=== PATIENT | female | born 1945 | race Caucasian/White ===

== ENCOUNTER → 2016-10-30 | Outpatient (CLI) | payer OTHER ==
[~2016-10-30] MED LIST: ASPCH81X PO; CALC-51 PO; MULT-506 PO; VITAMIN D3 PO
[2016-10-30 12:23] LABS: BASO % 0.5 %; BASO ABS # 0.02 K/uL (0-0.2); COMPLETE YES; EOS % 2.6 %; HEMATOCRIT 39.3 % (37-47); IG% 0.9 %; LYMPH % 11.8 %; MEAN CELL VOLUME 91.8 fL (80-100); MEAN CORPUSCULAR HEMOGLOBIN 29.4 pg (25-34); MEAN CORPUSCULAR HGB CONC 32.1 g/dl (32-36); MEAN PLATELET VOLUME 10.9 fL (7.4-10.4); MONO % 11.1 %; NEUT % 73.1 %; PLATELET COUNT 231 K/uL (130-400); RED BLOOD COUNT 4.28 M/uL (4.2-5.4); WHITE BLOOD COUNT 4.24 K/uL (4.8-10.8)
[2016-10-30 12:38] LABS: ALT/SGPT 22 U/L (12-78); BLOOD UREA NITROGEN 14 mg/dl (7-18); BUN/CREATININE RATIO 24.4 (10-20); CARBON DIOXIDE 26 mmol/L (21-32); CHLORIDE 107 mmol/L (98-107); CHOLESTEROL 165 mg/dl (0-200); CREATININE 0.59 mg/dl (0.60-1.20); GLUCOSE 116 mg/dl (70-99); MAGNESIUM 2.1 mg/dl (1.8-2.4); POTASSIUM 3.8 mmol/L (3.5-5.1); SODIUM 143 mmol/L (136-145); TRIGLYCERIDES 203 mg/dl (0-150); VERY LOW DENSITY LIPOPROT CALC 41 mg/dl
[2016-10-30 12:44] LABS: CALCIUM 8.3 mg/dl (8.5-10.1)
[2016-10-30 12:47] LABS: ALB/GLOB RATIO 0.8 (0.9-2); ALKALINE PHOSPHATASE 93 U/L (45-117); AST/SGOT 17 U/L (15-37); CHOLESTEROL/HDL RATIO 3.1; HDL CHOLESTEROL 54 mg/dl; LDL CHOLESTEROL CALCULATED 70 mg/dl
[2016-10-30 13:06] LABS: ESTIMATED AVERAGE GLUCOSE 134 mg/dl; HA1C FLAG Normal (Normal)
== END | disposition home or self-care (01) ==
LOC: C.LABBFT 08:41
PROVIDERS: ATTEND Family Medicine
DX: E11.59 Type 2 diabetes mellitus with other circulatory complications (principal); E78.5 Hyperlipidemia, unspecified; R73.03 Prediabetes; N20.0 Calculus of kidney; E04.2 Nontoxic multinodular goiter; E55.9 Vitamin D deficiency, unspecified; R00.2 Palpitations

== ENCOUNTER → 2016-11-12 | Outpatient (CLI) | payer OTHER ==
--- NOTE | 2016-11-13 13:28 | MAMMOGRAPHY REPORT ---
BILATERAL DIGITAL SCREENING MAMMOGRAM TOMOSYNTHESIS WITH CAD: 11/12/2016 CLINICAL HISTORY: Asymptomatic. Personal history of breast cancer. TECHNIQUE: Breast tomosynthesis in addition to standard 2D mammography was performed. Current study was also evaluated with a Computer Aided Detection (CAD) system. COMPARISON: Comparison is made to exams dated: 11/02/2015 mammogram, 10/27/2013 mammogram, 10/14/2012 m ammogram, 10/09/2011 mammogram, 10/03/2010 mammogram, and 03/28/2009 mammogram - [facility] enter. BREAST COMPOSITION: There are scattered areas of fibroglandular density in both breasts. FINDINGS: There is evidence of prior surgery in the right breast. There is scar retraction at the cassidy rgical site in the central right breast. There are benign-appearing calcifications throughout the ri ght breast and stable surgical clips. Stable left subareolar asymmetry. No new suspicious mass, arc hitectural distortion or cluster of microcalcifications is seen. IMPRESSION: ACR BI-RADS CATEGORY 1: NEGATIVE There is no mammographic evidence of malignancy. A 1 year screening mammogram is recommended. The pa tient will receive written notification of the results. Approximately 10% of breast cancers are not detected with mammography. A negative mammographic report should not delay biopsy if a clinically suggestive mass is present. Barbara Friend M.D. ay/:11/12/2016 16:13:25 Grain Weigher: Mary Jane LIRA)(Sophia), [facility] letter sent: Normal 1/2 BI-RADS Code: ACR BI-RADS Category 1: Negative
== END | disposition home or self-care (01) ==
LOC: C.MAMM 07:05
PROVIDERS: ATTEND Obstetrics & Gynecology
DX: Z12.31 Encounter for screening mammogram for malignant neoplasm of breast (principal); Z85.3 Personal history of malignant neoplasm of breast

== ENCOUNTER → 2017-05-21 | Outpatient (CLI) | payer OTHER ==
[~2017-05-21] MED LIST changes: +CALC-393 PO; +CHOL1TAB42 PO; +CIPR-255 PO; +CLC100 PO; +CPR500 PO; +DOCU100C31 PO; +METR-163 PO; +MTR500 PO; +PRLSR20 PO; +[UNRECOGNIZED DRUG - REMARK] OP
[2017-05-21 17:37] LABS: BASO % 0.2 %; BASO ABS # 0.01 K/uL (0-0.2); EOS % 1.9 %; HEMATOCRIT 38.8 % (37-47); HEMOGLOBIN 12.6 g/dL (12.0-16.0); IG# 0.03 K/uL (0.00-0.02); LYMPH % 11.2 %; LYMPH ABS # 0.59 K/uL (1.2-3.4); MEAN CELL VOLUME 90.2 fL (80-100); MEAN CORPUSCULAR HEMOGLOBIN 29.3 pg (25-34); MEAN CORPUSCULAR HGB CONC 32.5 g/dl (32-36); MEAN PLATELET VOLUME 10.4 fL (7.4-10.4); MONO % 11.7 %; MONO ABS # 0.62 K/uL (0.11-0.59); NEUT % 74.4 %; NEUT ABS # 3.93 K/uL (1.4-6.5); PLATELET COUNT 301 K/uL (130-400); RED CELL DISTRIBUTION WIDTH CV 14.3 % (11.5-14.5); RED CELL DISTRIBUTION WIDTH SD 47.2 fL (36.4-46.3); WHITE BLOOD COUNT 5.28 K/uL (4.8-10.8)
[2017-05-21 18:22] LABS: ALBUMIN 3.2 gm/dl (3.4-5.0); ALKALINE PHOSPHATASE 103 U/L (45-117); ALT/SGPT 29 U/L (12-78); AST/SGOT 19 U/L (15-37); BLOOD UREA NITROGEN 8 mg/dl (7-18); CALCIUM 9.6 mg/dl (8.5-10.1); CARBON DIOXIDE 33 mmol/L (21-32); CREATININE 0.61 mg/dl (0.60-1.20); GLUCOSE 121 mg/dl (70-99); LIPASE 361 U/L (73-393); POTASSIUM 3.3 mmol/L (3.5-5.1); SODIUM 139 mmol/L (136-145)
== END | disposition home or self-care (01) ==
LOC: C.LAB1850 16:58
PROVIDERS: ATTEND Internal Medicine
DX: R10.11 Right upper quadrant pain (principal); R10.13 Epigastric pain

== ENCOUNTER → 2017-05-24 | Outpatient (CLI) | payer OTHER ==
[~2017-05-24] MED LIST changes: -CALC-393 PO; -CHOL1TAB42 PO; -CIPR-255 PO; -CLC100 PO; -CPR500 PO; -DOCU100C31 PO; -METR-163 PO; -MTR500 PO; -PRLSR20 PO; -[UNRECOGNIZED DRUG - REMARK] OP
--- NOTE | 2017-05-24 09:06 | DIAGNOSTIC IMAGING REPORT ---
ABDOMEN LIMITED (US) CLINICAL HISTORY: 71 years-old Female presenting with R10.11 Abdominal pain, RUQ (right upper quadrant)[id number]. TECHNIQUE: Real-time grayscale and limited color Doppler ultrasound imaging of the abdomen limited to the right upper quadrant was performed. COMPARISON: CT from 12/21/2015. FINDINGS: Pancreas: Largely obscured due to overlying bowel gas. Liver: Moderately hyperechogenic parenchyma with partial obscuration of the right hemidiaphragm, likely indicating moderate steatosis. The liver measures 15.3 cm in maximal sagittal dimension. No sonographic evidence of hepatic mass. Main portal vein patent with normal directional flow. Biliary: No intrahepatic biliary ductal dilatation. Common bile duct measures up to 5 mm in diameter. Gallbladder: Gallstone without evidence of gallbladder distention, wall thickening, or pericholecystic fluid or inflammatory change. Right kidney: Normal in appearance. No hydronephrosis. Ascites: None. IMPRESSION: 1. Cholelithiasis. No biliary ductal dilatation. 2. Hepatic steatosis. Correlate with liver function tests to exclude steatohepatitis as a cause for abdominal pain. Electronically signed by: Cuauhtemoc Verma M.D. 05/24/2017 9:05 AM Dictated Date/Time: 05/24/2017 9:03 AM
== END | disposition home or self-care (01) ==
LOC: C.ULTR 08:03
PROVIDERS: ATTEND Internal Medicine
DX: R10.11 Right upper quadrant pain (principal); K80.20 Calculus of gallbladder without cholecystitis without obstruction

== ENCOUNTER → 2017-05-27 | Day surgery (SDC) | payer OTHER ==
[2017-04-24 15:31] VITALS: Ht 152.4 cm; Wt 68.2 kg
[~2017-05-27] VITALS: Ht 152.4 cm; Wt 68.2 kg
[~2017-05-27] MED LIST changes: +500ML BSS 0.3ML EPI 1:1000PF IRRIG ONE; +ACETAMINOPHEN 325 MG TAB PO PRN; +AMVISC PLUS 0.8ML SYRINGE INT OCU ONE; +ATROPINE SULFATE 0.1 MG/ML 5ML SYR IV PRN; +BRIMONIDINE TART 0.2% OP SOLN PER DROP CHARGE ONE; +BSS FLUSH ONE; +ENDOCOAT 0.85ML SYRINGE INT OCU ONE; +EpHEDrine SULFATE INJ 50 MG/ML AMP IV PRN; +EpINEphrine INJ 1MG/ML AMP 1 MG/ML AMP ONE; +LACTATED RINGER'S 1000ML 500 ML IV SCH; +LIDOCAINE 4% OP SOLN DROP CHARGE ONE; +LIDOCAINE 4% OP SOLN DROP CHARGE OPR SCH; +LIDOCAINE HCL 1% MPF 2 ML VIAL ONE; +MIDAZOLAM HCL 1 MG/ML 2ML VIAL ONE; +MOXIFLOXACIN OPH SOLN PER DROP CHARGE ONE; +ONDANSETRON INJ 2 MG/ML 2 ML VIAL IV PRN; +POVIDONE-IODINE OP SOLN 30 ML BTL ONE; +PROPARACAINE 0.5% OP SOLN PER DROP CHARGE OPR SCH; +TOBRAMYCIN/DEXAMETHASONE OPH OINT PER APPLN CHARGE ONE
[2017-05-27] MEDS: PHENYLEPHRINE HCL 2.5% OP SOLN PER DROP CHARGE OPR SCH ×2 (07:33→07:38)
[2017-05-27] MEDS: TROPICAMIDE 1% OP SOLN PER DROP CHARGE OPR SCH ×2 (07:34→07:39)
[2017-05-27] MEDS: CYCLOPENTOLATE HCL 1% OP SOLN PER DROP CHARGE OPR SCH ×2 (07:35→07:40)
[2017-05-27] MEDS: KETOROLAC 0.5% OP SOLN PER DROP CHARGE OPR SCH ×2 (07:36→07:41)
[2017-05-27] MEDS: MOXIFLOXACIN OPH SOLN PER DROP CHARGE OPR SCH ×2 (07:37→07:48)
--- NOTE | 2017-05-27 07:42 | History & Physical Bridge - SC ---
H&P Re-Evaluation Bridge Note: I have examined the patient, reviewed the History & Physical and in the interval since the performance of the History & Physical I have noted the following changes of clinical significance: No changes noted
--- NOTE | 2017-05-27 08:29 | [facility] Operative Report ---
Operative Report Operative Date May 27, 2017. 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 Gentle IV sedation was given, and the patient's right eye was prepped and draped in usual sterile fashion. A wire lid speculum was placed into the right eye and the operating microscope was swung into position. Using 0.12 forceps and a Supersharp blade a paracentesis port was made 2 o'clock hours away from the 9 o'clock position of the patient's right eye. 1% non-preserved Lidocaine was then injected into the anterior chamber for anesthesia. A 2.0 mm keratotome blade was then used to make a shelved clear corneal incision at the 9 o'clock position of the right eye. Amvisc was injected into the anterior chamber and a cystotome and Utrata forceps were used to perform a curvilinear capsulorrhexis. BSS on a hydrodissection cannula was used to hydrodissect the lens nucleus away from the capsular bag. The phacoemulsification handpiece was then used in a stop and chop fashion to remove the lens nucleus. The irrigation and aspiration handpiece was then used to remove the residual cortical material. Amvisc was injected into the capsular bag and anterior chamber and a [employer]ch [employer] Lomb MX60 14.5 Diopter intraocular lens was injected into the capsular bag. Irrigation and aspiration handpiece was used to remove the residual viscoelastic material. The wounds were hydrated and noted to be watertight. The wire lid speculum was removed from the eye. Vigamox, Brimonidine, and TobraDex ointment were placed on the eye and it was shielded. It should be noted that EndoCoat was used extensively during the case to protect the cornea endothelium. DISPOSITION: The patient tolerated the procedure well and was wheeled to the post anesthesia care unit in stable condition. I attest to the content of the Intraoperative Record and any orders documented therein. Any exceptions are noted below. I attest to the content of the Intraoperative Record and any orders documented therein. Any exceptions are noted below.
--- NOTE | 2017-05-27 08:31 | Discharge Instructions-SurgCtr ---
Discharge Instructions Date of Service May 27, 2017. Visit Reason for Visit: Right Cataract Discharge Discharge Diagnosis / Problem: cataract right eye Discharge Goals Goal(s): Improve function Activity Recommendations Activity Limitations: per Instructions/Follow-up section Lifting Limitations: no more than 5 pounds Anesthesia . Post Anesthesia Instructions: If you have had General Anesthesia or IV Sedation: * Do not drive today. * Resume driving when surgeon permits. * Do not make important decisions or sign legal documents today. * Call surgeon for: 1. Temperature elevations greater than 101 degrees F. 2. Uncontrollable pain. 3. Excessive bleeding. 4. Persistent nausea and vomiting. 5. Medication intolerance (nausea, vomiting or rash). * For nausea and vomiting use only clear liquids such as: tea, soda, bouillon until nausea subsides, then gradually increase diet as tolerated. * If you have any concerns or questions, call your surgeon's office. If physician is unavailable and it is an emergency, call 911 or go to the nearest emergency room. . Instructions / Follow-Up Instructions / Follow-Up ACTIVITY RECOMMENDATIONS: * Light activities * You may walk outside, read, watch television. * Mild irritation and blurred vision are common for the first few days, redness around the white part of the eye is common. MEDICATIONS: Resume previous medications unless instructed otherwise by your surgeon. Eye drops (today and tomorrow): Cipro - one drop in operative eye every 2 hours while awake Prednisolone 1% - one drop in operative eye every 2 hours while awake Ilevro - one drop operative eye 1 times daily SPECIAL CARE INSTRUCTIONS: * If any problems or concerns, please call Dr. Rodriguez's office at . * Keep plastic shield taped over eye to sleep at night. * Keep plastic shield taped over eye except to administer eye drops. * Keep plastic shield on until office visit the following day. FOLLOW UP VISIT: Follow-up with Dr. Rodriguez in the [place] office as scheduled. If not already scheduled, please call the office at . Diet Recommendations Home Diet: resume previous diet Procedures Procedures Performed: Right Cataract Phacoemulsification With Intraocular Lens Implant Pending Studies Studies pending at discharge: no Medical Emergencies . Who to Call and When: Medical Emergencies: If at any time you feel your situation is an emergency, please call 911 immediately. . Non-Emergent Contact Non-Emergency issues call your: Instructional Technologist . . "Provider Documentation" section prepared by Brandon Rodriguez. .
[2017-05-27 08:32] VITALS: TEMP 36.6
[2017-05-27 08:55] VITALS: BP 147/77; PULSE 75; O2SAT 99
--- NOTE | 2017-05-27 09:12 | Anesthesia Progress Nt - [facility] ---
Anesthesia Post Op Note Date & Time May 27, 2017 at 09:12 Vital Signs Pain Intensity: 0 Vital Signs Past 12 Hours Date Time Temp Pulse Resp B/P (MAP) Pulse Ox O2 Delivery O2 Flow Rate FiO2 05/27/17 08:55 75 16 147/77 (100) 99 Room Air 05/27/17 08:32 36.6 50 18 130/82 (98) 93 Room Air 05/27/17 07:23 36.3 52 18 117/78 (91) 97 Room Air Notes Mental Status: alert / awake / arousable, participated in evaluation Pt Amnestic to Procedure: Yes Nausea / Vomiting: adequately controlled Pain: adequately controlled Airway Patency, RR, SpO2: stable & adequate BP & HR: stable & adequate Hydration State: stable & adequate Anesthetic Complications: no major complications apparent
== END | disposition home or self-care (01) ==
LOC: X.SURG 06:56
PROVIDERS: ATTEND Ophthalmology
DX: H25.11 Age-related nuclear cataract, right eye (principal); M19.90 Unspecified osteoarthritis, unspecified site; Z85.3 Personal history of malignant neoplasm of breast; Z79.82 Long term (current) use of aspirin; Z79.899 Other long term (current) drug therapy

== ENCOUNTER 2017-05-30 21:04 | Inpatient (IN) | payer OTHER ==
[~2017-05-30] VITALS: Ht 152.4 cm; Wt 70.0 kg
[~2017-05-30 21:04] MED LIST changes: -500ML BSS 0.3ML EPI 1:1000PF IRRIG ONE; -ACETAMINOPHEN 325 MG TAB PO PRN; -AMVISC PLUS 0.8ML SYRINGE INT OCU ONE; -ATROPINE SULFATE 0.1 MG/ML 5ML SYR IV PRN; -BRIMONIDINE TART 0.2% OP SOLN PER DROP CHARGE ONE; -BSS FLUSH ONE; -ENDOCOAT 0.85ML SYRINGE INT OCU ONE; -EpHEDrine SULFATE INJ 50 MG/ML AMP IV PRN; -EpINEphrine INJ 1MG/ML AMP 1 MG/ML AMP ONE; -LACTATED RINGER'S 1000ML 500 ML IV SCH; -LIDOCAINE 4% OP SOLN DROP CHARGE ONE; -LIDOCAINE 4% OP SOLN DROP CHARGE OPR SCH; -LIDOCAINE HCL 1% MPF 2 ML VIAL ONE; -MIDAZOLAM HCL 1 MG/ML 2ML VIAL ONE; -MOXIFLOXACIN OPH SOLN PER DROP CHARGE ONE; -ONDANSETRON INJ 2 MG/ML 2 ML VIAL IV PRN; -POVIDONE-IODINE OP SOLN 30 ML BTL ONE; -PROPARACAINE 0.5% OP SOLN PER DROP CHARGE OPR SCH; -TOBRAMYCIN/DEXAMETHASONE OPH OINT PER APPLN CHARGE ONE
[2017-05-30] MEDS ORDERED: PRLSR20 PO (21:50)
[2017-05-30] MEDS ORDERED: CALC-393 PO (21:50)
[2017-05-30] MEDS ORDERED: CHOL1TAB42 PO (21:50)
[2017-05-30] MEDS ORDERED: [UNRECOGNIZED DRUG - REMARK] OP (21:51)
[2017-05-30 21:55] LABS: BASO % 0.1 %; BASO ABS # 0.02 K/uL (0-0.2); EOS % 0.4 %; EOS ABS # 0.09 K/uL (0-0.5); HEMATOCRIT 46.8 % (37-47); HEMOGLOBIN 15.8 g/dL (12.0-16.0); LYMPH % 4.5 %; LYMPH ABS # 0.91 K/uL (1.2-3.4); MEAN CELL VOLUME 89.8 fL (80-100); MEAN CORPUSCULAR HEMOGLOBIN 30.3 pg (25-34); MEAN CORPUSCULAR HGB CONC 33.8 g/dl (32-36); MEAN PLATELET VOLUME 10.6 fL (7.4-10.4); MONO % 6.2 %; MONO ABS # 1.27 K/uL (0.11-0.59); NEUT % 88.3 %; NEUT ABS # 17.98 K/uL (1.4-6.5); PLATELET COUNT 306 K/uL (130-400); RED CELL DISTRIBUTION WIDTH SD 45.9 fL (36.4-46.3); WHITE BLOOD COUNT 20.37 K/uL (4.8-10.8)
[2017-05-30] MEDS ORDERED: ONDANSETRON INJ 2 MG/ML 2 ML VIAL IV STA (21:55)
[2017-05-30] MEDS ORDERED: SODIUM CHLORIDE 0.9% 1000ML 1,000 ML IV STA ×2 (21:55→23:48)
--- NOTE | 2017-05-30 22:05 | EMERGENCY ROOM VISIT NOTE ---
History Report prepared by Josy: Cirilo Pompa Under the Supervision of: Dr. Anam Mayorga M.D. 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 She notes that she has been having abdominal pain for two weeks and states the pain resolved itself and then returned with more intensity. She notes constipation, abdominal pain, nausea, and vomiting. The patient notes gallstones, though she has not had pain from them in the past. She has a history of IBS. She recently had cataract surgery four days ago. She denies any fevers, chills, diarrhea, and back pain. She notes that she ate oranges for breakfast and then ham, potatoes, and string beans for dinner. She denies taking any blood thinners. 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 Review of Systems See HPI for pertinent positives and negatives. A total of ten systems were reviewed and were otherwise negative. Past Medical & Surgical Medical Problems: (1) IBS (irritable bowel syndrome) Family History Asthma Diabetes mellitus Kidney stones Social History Smoking Status: Never Smoker Drug Use: none Marital Status: Housing Status: lives with family Occupation Status: retired Current/Historical Medications Scheduled Aspirin (Aspirin Chewable), 81 MG PO QAM Calcium Carbonate (Calcium), 600 MG PO BID Cholecalciferol (Vitamin D), 5,000 UNITS PO DAILY Multivitamin (Multivitamin), 1 TAB PO DAILY AFTERNOON Omeprazole (Prilosec), 20 MG PO DAILY [Post Cataract Gtts], OP UD Allergies Coded Allergies: Penicillins (Verified Allergy, Unknown, SKIN IRRITATION>"HARD A ROCK" 47 YEARS AGO, 05/27/17) Physical Exam Vital Signs Date Time Temp Pulse Resp B/P (MAP) Pulse Ox O2 Delivery O2 Flow Rate FiO2 05/30/17 23:53 93 16 131/93 92 Room Air 05/30/17 23:03 100 16 124/70 94 Room Air 05/30/17 22:11 86 05/30/17 21:23 36.3 93 18 114/83 93 Room Air Physical Exam GENERAL: Awake, alert, uncomfortable-appearing, in no distress HENT: Normocephalic, atraumatic. Oropharynx unremarkable. EYES: Normal conjunctiva. Sclera non-icteric. NECK: Supple. No nuchal rigidity. FROM. No JVD. RESPIRATORY: Clear to auscultation. CARDIAC: Regular rate, normal rhythm. Extremities warm and well perfused. Pulses equal. ABDOMEN: Soft, non-distended. Mild epigastric discomfort and tenderness. No peritoneal signs. No rebound or guarding. No masses. RECTAL: Deferred. MUSCULOSKELETAL: Chest examination reveals no tenderness. The back is symmetrical on inspection without obvious abnormality. There is no CVA tenderness to palpation. No joint edema. LOWER EXTREMITIES: Calves are equal size bilaterally and non-tender. No edema. No discoloration. NEURO: Normal sensorium. No sensory or motor deficits noted. SKIN: No rash or jaundice noted. Medical Decision & Procedures ER Provider Diagnostic Interpretation: Radiology results as stated below per my review and radiologist interpretation: CHEST ONE VIEW PORTABLE CLINICAL HISTORY: epigastric pain pain COMPARISON STUDY: No previous studies for comparison. FINDINGS: The bones soft tissues and hemidiaphragms are normal. The cardiomediastinal silhouette is normal. The lungs are clear. The pulmonary vasculature is normal. IMPRESSION: Negative chest. The above report was generated using voice recognition software. It may contain grammatical, syntax or spelling errors. Electronically signed by: Artem Lott M.D. 05/30/2017 10:42 PM Dictated Date/Time: 05/30/2017 10:42 PM ABD/PELVIS IV CONTRAST ONLY CT DOSE: 412.60 mGy.cm HISTORY: Pain epigastric pain, n/v TECHNIQUE: Multiaxial CT images of the abdomen and pelvis were performed following the use of intravenous contrast. A dose lowering technique was utilized adhering to the principles of ALARA. COMPARISON STUDY: 12/21/2015 FINDINGS: Lung bases are clear. Liver is uniform throughout. Gallstone the region of the gallbladder neck. No significant gallbladder distention. Spleen is uniform. Kidneys enhance appropriately. No evidence for hydronephrosis. Findings suggesting ileus versus partial distal small bowel obstruction. Proximal left upper quadrant small bowel loops suggests a slight degree of hyperemia of the bowel wall. This is seen more significantly in the right lower quadrant region where moderate wall edema appears to be present. Appearance is most consistent without inflammatory bowel process and/or severe enteritis. A small amount of free fluid is identified in the right lower quadrant as well as in within the pelvic cul-de-sac region. There is been a bladder suspension procedure which has been described previously. The colonic pattern appears to be nonobstructive. There is trace amount of perihepatic ascites. IMPRESSION: 1. Moderately edematous and hyperemic loops of small bowel in the right central pelvic and right lower quadrant region. 2. This is accompanied by a moderate degree of surrounding free fluid and/or ascites with extension to the pelvic cul-de-sac and to a lesser extent to the perihepatic region. 3. Appearance suggests a nonspecific enteritis and/or small bowel inflammatory process with mild secondary inflammatory changes of the appendix. No evidence for primary appendicitis. 4. No evidence for drainable abscess or collection at this time. 5. Small bowel pattern currently suggests partial distal small bowel obstructive change 6. Bladder suspension procedure which has been present previously. The above report was generated using voice recognition software. It may contain grammatical, syntax or spelling errors. Electronically signed by: Artem Lott M.D. 05/30/2017 10:59 PM Dictated Date/Time: 05/30/2017 10:51 PM Laboratory Results Test 05/30/17 21:46 05/30/17 21:49 Immature Granulocyte % (Auto) 0.5 % White Blood Count 20.37 K/uL (4.8-10.8) Red Blood Count 5.21 M/uL (4.2-5.4) Hemoglobin 15.8 g/dL (12.0-16.0) Hematocrit 46.8 % (37-47) Mean Corpuscular Volume 89.8 fL (80-100) Mean Corpuscular Hemoglobin 30.3 pg (25-34) Mean Corpuscular Hemoglobin Concent 33.8 g/dl (32-36) Platelet Count 306 K/uL (130-400) Mean Platelet Volume 10.6 fL (7.4-10.4) Neutrophils (%) (Auto) 88.3 % Lymphocytes (%) (Auto) 4.5 % Monocytes (%) (Auto) 6.2 % Eosinophils (%) (Auto) 0.4 % Basophils (%) (Auto) 0.1 % Neutrophils # (Auto) 17.98 K/uL (1.4-6.5) Lymphocytes # (Auto) 0.91 K/uL (1.2-3.4) Monocytes # (Auto) 1.27 K/uL (0.11-0.59) Eosinophils # (Auto) 0.09 K/uL (0-0.5) Basophils # (Auto) 0.02 K/uL (0-0.2) Immature Granulocyte # (Auto) 0.10 K/uL (0.00-0.02) Urine Color YELLOW Urine Appearance CLOUDY (CLEAR) Urine pH 5.0 (4.5-7.5) Urine Specific Nadeau >= 1.030 (1.000-1.030) Urine Protein 2+ (NEG) Urine Glucose (UA) NEG (NEG) Urine Ketones TRACE (NEG) Urine Occult Blood TRACE (NEG) Urine Nitrite NEG (NEG) Urine Bilirubin NEG (NEG) Urine Urobilinogen NEG (NEG) Urine Leukocyte Esterase SMALL (NEG) Urine RBC 0-4 /hpf (0-4) Urine WBC 10-30 /hpf (0-5) Urine Epithelial Cells 0-5 /lpf (0-5) Urine Calcium Oxalate Crystals PRESENT (NONE PRSENT) Urine Bacteria 1+ (NEG) Urine Hyaline Casts 1-5 /lpf (0-5) Urine Mucus PRESENT (NONE PRSENT) Total Bilirubin 0.6 mg/dl (0.2-1) Aspartate Amino Transf (AST/SGOT) 19 U/L (15-37) Alanine Aminotransferase (ALT/SGPT) 26 U/L (12-78) Alkaline Phosphatase 101 U/L (45-117) Total Protein 7.4 gm/dl (6.4-8.2) Albumin 3.5 gm/dl (3.4-5.0) Globulin 3.9 gm/dl (2.5-4.0) Albumin/Globulin Ratio 0.9 (0.9-2) Lipase 400 U/L (73-393) Troponin I < 0.015 ng/ml (0-0.045) Laboratory results reviewed by me Medications Administered Medications (Trade) Dose Ordered Sig/Erick Route Start Time Stop Time Status Last Admin Dose Admin Sodium Chloride 1,000 ml @ 999 mls/hr Q1H1M STAT IV 05/30/17 21:55 05/30/17 22:55 DC 05/30/17 22:05 999 MLS/HR Ondansetron HCl (Zofran Inj) 4 mg NOW STAT IV 05/30/17 21:55 05/30/17 21:59 DC 05/30/17 22:04 4 MG Cefepime HCl 2000 mg/Dextrose 112.5 ml @ 200 mls/hr NOW STAT IV 05/30/17 23:42 05/31/17 00:15 DC 05/30/17 23:50 200 MLS/HR Metronidazole (Flagyl / Nss) 500 mg NOW STAT IV 05/30/17 23:42 05/30/17 23:44 DC 05/30/17 23:50 500 MG Sodium Chloride 1,000 ml @ 999 mls/hr Q1H1M STAT IV 05/30/17 23:48 05/31/17 00:48 DC 05/30/17 23:50 999 MLS/HR ECG Indication: vomiting Rate (beats per minute): 87 Rhythm: normal sinus Findings: LAFB, RBBB (incomplete), no acute ischemic change ED Course 2153: The patient was evaluated in room C1B. A complete history and physical exam was performed. 6: I spoke with Dr. Huynh, hospitalist. We discussed the patients case. The patient will be evaluated by the [facility] for further management. Medical Decision I reviewed the patient's past medical history, medications, and the nursing notes as described above. The patient's history was concerning for abdominal pain. Differential diagnosis: Etiologies such as appendicitis, diverticulitis, PUD, biliary pathology, UTI, pancreatitis, obstruction, mesenteric ischemia, aortic pathology, infections, inflammatory bowel disease, renal colic, as well as others were entertained. The patient is a 71-year-old woman who presents emergency Department with epigastric abdominal pain nausea vomiting that began abruptly this afternoon in the setting of similar symptoms ongoing intermittently for the past couple of weeks per hpi. While the patient is uncomfortable but no acute distress, afebrile with stable vital signs. Notable for leukocytosis to 20 as well as lactate elevated at 2.9. CT demonstrating enteritis and likely partial small bowel obstruction reassessed and is feeling improved after IV fluids and Zofran. Given patient's clinical improvement, no indication for NG tube at this time or emergent surgery consultation. We'll treat empirically with cefepime and Flagyl given the patient's leukocytosis and elevated lactate. Case discussed with Dr. Huynh, [facility] hospitalist, who will admit the patient for further management. Medication Reconcilliation Current Medication List: was personally reviewed by me Blood Pressure Screening Patient's blood pressure: Normal blood pressure Consults Time Called: [phone] Consulting Physician: loretta Pizanoist Returned Call: [phone] I spoke with merritt Pizano. We discussed the patients case. The patient will be evaluated by the [facility] for further management. Impression Primary Impression: Enteritis Additional Impressions: Partial small bowel obstruction Sepsis Critical Care I have personally spent greater than 35 minutes of critical care time in the direct management of this patient. This includes bedside care, interpretation of diagnostic studies, and testing, discussion with consultants, patient, and family members, and other required patient management activities. This 35 minutes is in excess of all separately billable procedures. Scribe Attestation The scribe's documentation has been prepared under my direction and personally reviewed by me in its entirety. I confirm that the note above accurately reflects all work, treatment, procedures, and medical decision making performed by me. Departure Information Dispostion Being Evaluated By Hospitalist Referrals Nicky Roman M.D. (PCP) Patient Instructions My [facility] Problem Qualifiers
[2017-05-30 22:12] LABS: ALBUMIN 3.5 gm/dl (3.4-5.0); CALCIUM 10.1 mg/dl (8.5-10.1); CREATININE 0.71 mg/dl (0.60-1.20); POTASSIUM 3.8 mmol/L (3.5-5.1)
[2017-05-30 22:15] LABS: TOTAL PROTEIN 7.4 gm/dl (6.4-8.2)
[2017-05-30] MEDS ORDERED: OPTIRAY 320 IV PRN (22:15)
--- NOTE | 2017-05-30 22:43 | DIAGNOSTIC IMAGING REPORT ---
CHEST ONE VIEW PORTABLE CLINICAL HISTORY: epigastric pain pain COMPARISON STUDY: No previous studies for comparison. FINDINGS: The bones soft tissues and hemidiaphragms are normal. The cardiomediastinal silhouette is normal. The lungs are clear. The pulmonary vasculature is normal. IMPRESSION: Negative chest. The above report was generated using voice recognition software. It may contain grammatical, syntax or spelling errors. Electronically signed by: Artem Lott M.D. 05/30/2017 10:42 PM Dictated Date/Time: 05/30/2017 10:42 PM
--- NOTE | 2017-05-30 23:00 | DIAGNOSTIC IMAGING REPORT ---
ABD/PELVIS IV CONTRAST ONLY CT DOSE: 412.60 mGy.cm HISTORY: Pain epigastric pain, n/v TECHNIQUE: Multiaxial CT images of the abdomen and pelvis were performed following the use of intravenous contrast. A dose lowering technique was utilized adhering to the principles of ALARA. COMPARISON STUDY: 12/21/2015 FINDINGS: Lung bases are clear. Liver is uniform throughout. Gallstone the region of the gallbladder neck. No significant gallbladder distention. Spleen is uniform. Kidneys enhance appropriately. No evidence for hydronephrosis. Findings suggesting ileus versus partial distal small bowel obstruction. Proximal left upper quadrant small bowel loops suggests a slight degree of hyperemia of the bowel wall. This is seen more significantly in the right lower quadrant region where moderate wall edema appears to be present. Appearance is most consistent without inflammatory bowel process and/or severe enteritis. A small amount of free fluid is identified in the right lower quadrant as well as in within the pelvic cul-de-sac region. There is been a bladder suspension procedure which has been described previously. The colonic pattern appears to be nonobstructive. There is trace amount of perihepatic ascites. IMPRESSION: 1. Moderately edematous and hyperemic loops of small bowel in the right central pelvic and right lower quadrant region. 2. This is accompanied by a moderate degree of surrounding free fluid and/or ascites with extension to the pelvic cul-de-sac and to a lesser extent to the perihepatic region. 3. Appearance suggests a nonspecific enteritis and/or small bowel inflammatory process with mild secondary inflammatory changes of the appendix. No evidence for primary appendicitis. 4. No evidence for drainable abscess or collection at this time. 5. Small bowel pattern currently suggests partial distal small bowel obstructive change 6. Bladder suspension procedure which has been present previously. The above report was generated using voice recognition software. It may contain grammatical, syntax or spelling errors. Electronically signed by: Artem Lott M.D. 05/30/2017 10:59 PM Dictated Date/Time: 05/30/2017 10:51 PM
[2017-05-30] MEDS ORDERED: METRONIDAZOLE 500MG / 100ML NSS IV STA (23:42)
[2017-05-30] MEDS ORDERED: CEFEPIME IV 2,000 MG in DEXTROSE 5% 100ML 100 ML IV STA (23:42)
[2017-05-31] MEDS ORDERED: ACETAMINOPHEN 325 MG TAB PO PRN (01:45)
[2017-05-31] MEDS ORDERED: ONDANSETRON 8MG OD TAB PO PRN (01:45)
[2017-05-31 02:06] VITALS: BP 144/83; PULSE 95; TEMP 36.5; O2SAT 92; Ht 152.4 cm; Wt 70.0 kg
[2017-05-31] MEDS: NSS + 20MEQ KCL 1000ML 1,000 ML IV SCH ×2 (02:37→14:37)
[2017-05-31] MEDS ORDERED: NURSING VERBAL MED ORDER ONE ×2 (02:45→23:00)
[2017-05-31] MEDS ORDERED: ONDANSETRON INJ 2 MG/ML 2 ML VIAL ONE (02:48)
[2017-05-31] MEDS ORDERED: ACETAMINOPHEN IV 650 MG / 65ML IV PRN ×2 (03:00)
[2017-05-31] MEDS: CIPROFLOXACIN / D5W 400 MG in PREMIXED IN D5W 200 ML IV SCH ×2 (03:08→14:37)
[2017-05-31] MEDS ORDERED: ONDANSETRON INJ 2 MG/ML 2 ML VIAL IV PRN (03:15)
--- NOTE | 2017-05-31 04:33 | History and Physical ---
History & Physical Date & Time of Service: May 31, 2017 at 04:25 Chief Complaint: Partial Small Bowel Obstuction Primary Care Physician: Nicky Roman M.D. History of Present Illness Source: patient, hospital records The patient is a 71-year-old female who presents to the emergency room with intermittent vomiting over the past 3 hours [employer]. She reports abdominal pain over the past 2 weeks, which are temporarily resolves, and then returned more intensely today. She's had constipation, abdominal pain, nausea and vomiting all worsening today. She does have history of IBS. She had cataract surgery in the right eye 4 days ago. Her diet today consisted of one just for breakfast , and then ham, potatoes and string beans for dinner. She denies having any similar symptoms in the past. She denies any blood in urine or stool. Family History Asthma Diabetes mellitus Kidney stones Social History Smoking Status: Never Smoker Smokeless Tobacco Use: No Alcohol Use: none Drug Use: none Marital Status: Housing status: lives with family Occupational Status: retired Immunizations History of Influenza Vaccine: No History of Tetanus Vaccine?: HAD IT BUT DOESN'T REMEMER WHEN. History of Pneumococcal: No History of Hepatitis B Vaccine: No Multi-Drug Resistant Organisms History of MDRO: No Allergies Coded Allergies: Penicillins (Verified Allergy, Unknown, SKIN IRRITATION>"HARD A ROCK" 47 YEARS AGO, 05/27/17) Home Medications Scheduled Aspirin (Aspirin Chewable), 81 MG PO QAM Calcium Carbonate (Calcium), 600 MG PO BID Cholecalciferol (Vitamin D), 5,000 UNITS PO DAILY Multivitamin (Multivitamin), 1 TAB PO DAILY AFTERNOON Omeprazole (Prilosec), 20 MG PO DAILY [Post Cataract Gtts], OP UD Review of Systems The patient denies chest pain, palpitations, shortness of breath, dyspnea on exertion, cough, lower extremity swelling, sore throat, fevers, chills, sweats, weight change, blood in urine or stool, dysuria, urinary frequency or urgency, lightheadedness, dizziness, headache, memory loss, loss of consciousness, rash, abnormal bruising or bleeding, imbalance, focal weakness, numbness or tingling in arms or legs, generalized arthralgias or myalgias, back or neck pain, or night sweats. The review of systems is otherwise negative other than for that already noted above, and at least 10 systems have been reviewed. Physical Exam Vital Signs Date Time Temp Pulse Resp B/P (MAP) Pulse Ox O2 Delivery O2 Flow Rate FiO2 05/31/17 02:06 36.5 95 18 144/83 92 Room Air 05/31/17 02:05 Room Air 05/31/17 01:51 89 16 124/86 91 05/30/17 23:53 93 16 131/93 92 Room Air 05/30/17 23:03 100 16 124/70 94 Room Air 05/30/17 22:11 86 05/30/17 21:23 36.3 93 18 114/83 93 Room Air The patient is awake, alert and oriented 3, well developed and well nourished, normocephalic and atraumatic, lying in bed and in no acute distress. HEENT--PERRL, EOMI, mucous membranes and oropharynx dry. Neck--supple. No JVD. No bruits. Thyroid normal, trachea midline, no adenopathy. Heart--normal S1 and S2. No murmurs, rubs or gallops. Lungs--clear bilaterally, no respiratory distress, no accessory muscle use. Abdomen--decreased bowel sounds, mildly firm, mildly tender. Nondistended, no hernias or masses, no organomegaly. Extremities--no cyanosis or clubbing. No edema. There are good distal pulses b/ l. Dermatologic--normal skin turgor, normal color, no abnormal lymph nodes, no rash. Neurologic--cranial nerves II through XII grossly intact. Rheumatologic--normal range of motion. Psychiatric--normal affect. Diagnostics Laboratory Results Results Past 24 Hours Test 05/30/17 21:46 05/30/17 21:49 05/30/17 22:21 Range/Units White Blood Count 20.37 4.8-10.8 K/uL Red Blood Count 5.21 4.2-5.4 M/uL Hemoglobin 15.8 12.0-16.0 g/dL Hematocrit 46.8 37-47 % Mean Corpuscular Volume 89.8 80-100 fL Mean Corpuscular Hemoglobin 30.3 25-34 pg Mean Corpuscular Hemoglobin Concent 33.8 32-36 g/dl Platelet Count 306 130-400 K/uL Mean Platelet Volume 10.6 7.4-10.4 fL Neutrophils (%) (Auto) 88.3 % Lymphocytes (%) (Auto) 4.5 % Monocytes (%) (Auto) 6.2 % Eosinophils (%) (Auto) 0.4 % Basophils (%) (Auto) 0.1 % Neutrophils # (Auto) 17.98 1.4-6.5 K/uL Lymphocytes # (Auto) 0.91 1.2-3.4 K/uL Monocytes # (Auto) 1.27 0.11-0.59 K/uL Eosinophils # (Auto) 0.09 0-0.5 K/uL Basophils # (Auto) 0.02 0-0.2 K/uL RDW Standard Deviation 45.9 36.4-46.3 fL RDW Coefficient of Variation 14.0 11.5-14.5 % Immature Granulocyte % (Auto) 0.5 % Immature Granulocyte # (Auto) 0.10 0.00-0.02 K/uL Urine Color YELLOW Urine Appearance CLOUDY CLEAR Urine pH 5.0 4.5-7.5 Urine Specific [place] >= 1.030 1.000-1.030 Urine Protein 2+ NEG Urine Glucose (UA) NEG NEG Urine Ketones TRACE NEG Urine Occult Blood TRACE NEG Urine Nitrite NEG NEG Urine Bilirubin NEG NEG Urine Urobilinogen NEG NEG Urine Leukocyte Esterase SMALL NEG Urine RBC 0-4 0-4 /hpf Urine WBC 10-30 0-5 /hpf Urine Epithelial Cells 0-5 0-5 /lpf Urine Calcium Oxalate Crystals PRESENT NONE PRSENT Urine Bacteria 1+ NEG Urine Hyaline Casts 1-5 0-5 /lpf Urine Mucus PRESENT NONE PRSENT Sodium Level 141 136-145 mmol/L Potassium Level 3.8 3.5-5.1 mmol/L Chloride Level 102 98-107 mmol/L Carbon Dioxide Level 29 21-32 mmol/L Anion Gap 10.0 3-11 mmol/L Blood Urea Nitrogen 12 7-18 mg/dl Creatinine 0.71 0.60-1.20 mg/dl Est Creatinine Clear Calc Drug Dose 64.4 ml/min Estimated GFR () 100.0 Estimated GFR (Non- 86.3 BUN/Creatinine Ratio 17.0 10-20 Random Glucose 182 70-99 mg/dl Calcium Level 10.1 8.5-10.1 mg/dl Total Bilirubin 0.6 0.2-1 mg/dl Aspartate Amino Transf (AST/SGOT) 19 15-37 U/L Alanine Aminotransferase (ALT/SGPT) 26 12-78 U/L Alkaline Phosphatase 101 45-117 U/L Total Protein 7.4 6.4-8.2 gm/dl Albumin 3.5 3.4-5.0 gm/dl Globulin 3.9 2.5-4.0 gm/dl Albumin/Globulin Ratio 0.9 0.9-2 Lipase 400 73-393 U/L Troponin I < 0.015 0-0.045 ng/ml Lactic Acid Level 2.9 0.4-2.0 mmol/L Microbiology Results 05/30/17 Urine Culture, Received Pending Diagnostic Radiology Patient Name: CHRISSIE BRODY Unit Number: [id number] Dictated: 05/30/172241 Transcribed: 05/30/172241 MS Printed Date/Time: [~ rep prt dt]/[~ rep prt tm] [~ rep ct labl] - [~ rep ct ivnm] [facility] Radiology [place] [address] Dictated: 05/30/172241 Transcribed: 05/30/172241 MS Printed Date/Time: [~ rep prt dt]/[~ rep prt tm] [~ rep ct labl] - [~ rep ct ivnm] CHEST ONE VIEW PORTABLE CLINICAL HISTORY: epigastric pain pain COMPARISON STUDY: No previous studies for comparison. FINDINGS: The bones soft tissues and hemidiaphragms are normal. The cardiomediastinal silhouette is normal. The lungs are clear. The pulmonary vasculature is normal. IMPRESSION: Negative chest. The above report was generated using voice recognition software. It may contain grammatical, syntax or spelling errors. Electronically signed by: Artem Lott M.D. 05/30/2017 10:42 PM Dictated Date/Time: 05/30/2017 10:42 PM The status of this report is Signed. Draft = Not yet reviewed or approved by Radiologist. Signed = Reviewed and approved by Radiologist. <AttendingPhy></AttendingPhy> <FamilyPhy></FamilyPhy> <PrimaryPhy>Nicky Roman M.D.</PrimaryPhy> <UnitNumber>[id number]</UnitNumber> <VisitNumber> [id number]</VisitNumber> <PatientName>CHRISSIE BRODY</PatientName> <DateOfBirth> 1945</DateOfBirth> <Location>[facility]</Location> <ServiceDate>05/30/17</ ServiceDate> <MNE>ESINDI</MNE> <OrderingPhy>Anam Mayorga M.D.</OrderingPhy > <OrderingPhyMNE>f rep ord dr kim</OrderingPhyMNE> <DictatingPhyMNE>f rep dict dr kim</DictatingPhyMNE> <CCListMNE>f rep ct mne</CCListMNE> <AdmittingPhyMNE>f pt admit dr kim</AdmittingPhyMNE> <AttendingPhyMNE>f pt attend dr kim</ AttendingPhyMNE> <ConsultingPhyMNE>f pt consult dr kim</ConsultingPhyMNE> <FamilyPhyMNE>f pt fam dr kim</FamilyPhyMNE> <OtherPhyMNE>f pt other dr kim</OtherPhyMNE> < PrimaryPhyMNE>f pt prim care dr kim</PrimaryPhyMNE> <ReferringPhyMNE>f pt referring dr kim</ReferringPhyMNE> Patient Name: CHRISSIE BRODY Unit Number: [id number] Dictated: 05/30/172250 Transcribed: 05/30/172250 MS Printed Date/Time: [~ rep prt dt]/[~ rep prt tm] [~ rep ct labl] - [~ rep ct ivnm] [facility] Radiology Department [place], [place] [id number] Dictated: 05/30/172250 Transcribed: 05/30/172250 MS Printed Date/Time: [~ rep prt dt]/[~ rep prt tm] [~ rep ct labl] - [~ rep ct ivnm] [~ rep ct add3]] ABD/PELVIS IV CONTRAST ONLY CT DOSE: 412.60 mGy.cm HISTORY: Pain epigastric pain, n/v TECHNIQUE: Multiaxial CT images of the abdomen and pelvis were performed following the use of intravenous contrast. A dose lowering technique was utilized adhering to the principles of ALARA. COMPARISON STUDY: 12/21/2015 FINDINGS: Lung bases are clear. Liver is uniform throughout. Gallstone the region of the gallbladder neck. No significant gallbladder distention. Spleen is uniform. Kidneys enhance appropriately. No evidence for hydronephrosis. Findings suggesting ileus versus partial distal small bowel obstruction. Proximal left upper quadrant small bowel loops suggests a slight degree of hyperemia of the bowel wall. This is seen more significantly in the right lower quadrant region where moderate wall edema appears to be present. Appearance is most consistent without inflammatory bowel process and/or severe enteritis. A small amount of free fluid is identified in the right lower quadrant as well as in within the pelvic cul-de-sac region. There is been a bladder suspension procedure which has been described previously. The colonic pattern appears to be nonobstructive. There is trace amount of perihepatic ascites. IMPRESSION: 1. Moderately edematous and hyperemic loops of small bowel in the right central pelvic and right lower quadrant region. 2. This is accompanied by a moderate degree of surrounding free fluid and/or ascites with extension to the pelvic cul-de-sac and to a lesser extent to the perihepatic region. 3. Appearance suggests a nonspecific enteritis and/or small bowel inflammatory process with mild secondary inflammatory changes of the appendix. No evidence for primary appendicitis. 4. No evidence for drainable abscess or collection at this time. 5. Small bowel pattern currently suggests partial distal small bowel obstructive change 6. Bladder suspension procedure which has been present previously. The above report was generated using voice recognition software. It may contain grammatical, syntax or spelling errors. Electronically signed by: Artem Lott M.D. 05/30/2017 10:59 PM Dictated Date/Time: 05/30/2017 10:51 PM The status of this report is Signed. Draft = Not yet reviewed or approved by Radiologist. Signed = Reviewed and approved by Radiologist. <AttendingPhy></AttendingPhy> <FamilyPhy></FamilyPhy> <PrimaryPhy>Nicky Roman M.D.</PrimaryPhy> <UnitNumber>[id number]</UnitNumber> <VisitNumber> [id number]</VisitNumber> <PatientName>CHRISSIE BRODY</PatientName> <DateOfBirth> 1945</DateOfBirth> <Location>[facility]</Location> <ServiceDate>05/30/17</ ServiceDate> <MNE>ESINDI</MNE> <OrderingPhy>Anam Mayorga M.D.</OrderingPhy > <OrderingPhyMNE>f rep ord dr kim</OrderingPhyMNE> <DictatingPhyMNE>f rep dict dr kim</DictatingPhyMNE> <CCListMNE>f rep ct gurvindere</CCListMNE> <AdmittingPhyMNE>f pt admit dr kim</AdmittingPhyMNE> <AttendingPhyMNE>f pt attend dr kim</ AttendingPhyMNE> <ConsultingPhyMNE>f pt consult dr kim</ConsultingPhyMNE> <FamilyPhyMNE>f pt fam dr kim</FamilyPhyMNE> <OtherPhyMNE>f pt other dr kim</OtherPhyMNE> < PrimaryPhyMNE>f pt prim care dr kim</PrimaryPhyMNE> <ReferringPhyMNE>f pt referring dr kim</ReferringPhyMNE> EKG EKG shows normal sinus rhythm at 87 bpm, incomplete right bundle branch block, left axis deviation, no acute ST-T changes Impression Assessment and Plan Partial distal small bowel obstruction-- Admitted to the medical surgical floor Patient received cefepime and Flagyl IV in the ED Place on Cipro and Flagyl IV Zofran 4 mg IV every 6 hours when necessary Protonix 40 mg IV daily Nothing by mouth status IV fluids Serial CBC with differential, BMP and magnesium level Consult surgery Hold aspirin Level of Care Med/Surg Advanced Directives Existing Advance Directive: No Existing Living Will: Yes Existing Power of Leakage Tester: Yes VTE Prophylaxis VTE Risk Assessment Done? Y/N: Yes Risk Level: Moderate Given or contraindicated: SCD's
[2017-05-31 07:26] VITALS: BP 105/64; PULSE 67; TEMP 36.8; O2SAT 91
[2017-05-31 08:41] LABS: HEMATOCRIT 38.5 % (37-47); HEMOGLOBIN 12.4 g/dL (12.0-16.0); MEAN CORPUSCULAR HGB CONC 32.2 g/dl (32-36); MEAN PLATELET VOLUME 10.7 fL (7.4-10.4); PLATELET COUNT 229 K/uL (130-400); RED CELL DISTRIBUTION WIDTH CV 14.1 % (11.5-14.5); RED CELL DISTRIBUTION WIDTH SD 46.6 fL (36.4-46.3); WHITE BLOOD COUNT 15.53 K/uL (4.8-10.8)
[2017-05-31 09:07] LABS: CREATININE 0.67 mg/dl (0.60-1.20); POTASSIUM 3.9 mmol/L (3.5-5.1)
[2017-05-31] MEDS: METRONIDAZOLE / NSS 500 MG in PREMIXED NSS 100 ML IV SCH ×3 (11:00→23:26)
[2017-05-31] MEDS: PANTOprazole INJ 40 MG in SYRINGE 0 ML IV SCH (11:01)
--- NOTE | 2017-05-31 11:46 | Surgery Consultation ---
Consultation Date of Consultation: May 31, 2017. Attending Physician: Saulo Morton D.O. Reason for Consultation: Partial small bowel obstruction History of Present Illness Danna is a pleasant 71 year-old female who presented to emergency department last evening with compliant of persistent vomiting and abdominal pain that started yesterday morning. Danna states she has had intermittent abdominal pain that comes in waves since [place]. States the pain would get better and then flare up again. States she noticed intermittent diarrhea one day in which she had loose stools about 3-4 times that day but then resolved on its own. States she has had all upper abdominal pain, no radiation to lower abdomen. She states she was in [facility] for a this week and had some oranges for breakfast on morning and then noticed increasing nausea, abdominal pain, and persistent vomiting. Never had anything like this before. Has history of IBS and states this is definitely not similar to her IBS symptoms. Last colonoscopy a few years back( unsure exact year). No history of abnormal colonoscopy or polyps. No family history of colon cancer or inflammatory bowel disease. She states her bowel movements have now been slightly sluggish so she took stool softeners a few days. Denies of any fever, chills, night sweats, chest pain, shortness of breath, difficulty breathing, blood in stools, black/ tarry stools, difficulty urinating. In the emergency she had a CT scan which showed hyperemic loops of bowel in the LUQ and RLQ with edema consistent with either enteritis or inflammatory bowel disease. There was also concern for partial small bowel obstruction in the RLQ. Labs showed leukocytosis of 20K and elevated lactic acid at 2.9 Past Medical/Surgical History Medical Problems: 1.GERD Past Surgical History: 1. Appendectomy at age 5 Family History Asthma Diabetes mellitus Kidney stones Social History Smoking Status: Never Smoker Smokeless Tobacco Use: No Alcohol Use: none Drug Use: none Marital Status: Housing Status: lives with family Occupation Status: retired Allergies Coded Allergies: Penicillins (Verified Allergy, Unknown, SKIN IRRITATION>"HARD A ROCK" 47 YEARS AGO, 05/27/17) Home Medications Scheduled Aspirin (Aspirin Chewable), 81 MG PO QAM Calcium Carbonate (Calcium), 600 MG PO BID Cholecalciferol (Vitamin D), 5,000 UNITS PO DAILY Multivitamin (Multivitamin), 1 TAB PO DAILY AFTERNOON Omeprazole (Prilosec), 20 MG PO DAILY [Post Cataract Gtts], OP UD Current Inpatient Medications Current Inpatient Medications Medications (Trade) Dose Ordered Sig/Erick Route Start Time Stop Time Status Last Admin Dose Admin Ioversol (Optiray 320) 111 ml UD PRN IV 05/30/17 22:15 06/03/17 22:14 Pantoprazole Sodium 40 mg/ Syringe 10 ml @ 5 mls/min DAILY@11 IV 05/31/17 11:00 06/30/17 10:59 05/31/17 11:01 5 MLS/MIN Ondansetron HCl (Zofran Odt) 8 mg Q6H PRN PO 05/31/17 01:45 06/30/17 01:44 Acetaminophen (Tylenol Tab) 650 mg Q4H PRN PO 05/31/17 01:45 06/30/17 01:44 Potassium Chloride/Sodium Chloride 1,000 ml @ 100 mls/hr Q10H IV 05/31/17 02:30 06/30/17 02:29 05/31/17 02:37 100 MLS/HR Ciprofloxacin/ Dextrose 400 mg/ Prmx 200 ml @ 100 mls/hr Q12H IV 05/31/17 02:30 06/10/17 02:29 05/31/17 03:08 100 MLS/HR Metronidazole 500 mg/Prmx 100 ml @ 100 mls/hr Q8H IV 05/31/17 08:00 06/10/17 07:59 05/31/17 11:00 100 MLS/HR Acetaminophen 650 mg/Empty Bag 65 ml @ 260 mls/hr Q4H PRN IV 05/31/17 03:00 06/30/17 02:59 05/31/17 03:06 260 MLS/HR Ondansetron HCl (Zofran Inj) 4 mg Q6H PRN IV 05/31/17 03:15 06/30/17 03:14 Review of Systems Constitutional: No fever, No chills, No sweats Respiratory: No cough, No shortness of breath, No dyspnea on exertion, No dyspnea at rest Cardiovascular: No chest pain Abdomen: + pain, + nausea, + vomiting, + diarrhea, + constipation, No GI bleeding Genitourinary - Female: + dysuria, + urinary frequency, + urinary urgency Endocrine: No fatigue Hematologic / Lymphatic: No abnormal bleeding/bruising Integumentary: No rash Physical Exam Date Time Temp Pulse Resp B/P (MAP) Pulse Ox O2 Delivery O2 Flow Rate FiO2 05/31/17 07:26 36.8 67 15 105/64 (78) 91 Room Air 05/31/17 02:06 36.5 95 18 144/83 92 Room Air 05/31/17 02:05 Room Air 05/31/17 01:51 89 16 124/86 91 05/30/17 23:53 93 16 131/93 92 Room Air 05/30/17 23:03 100 16 124/70 94 Room Air 05/30/17 22:11 86 05/30/17 21:23 36.3 93 18 114/83 93 Room Air General Appearance: WD/WN, no apparent distress Head: normocephalic, atraumatic Eyes: sclerae normal ENT: hearing grossly normal Neck: trachea midline Respiratory/Chest: lungs clear, normal breath sounds, no respiratory distress, no accessory muscle use Cardiovascular: regular rate, rhythm, no murmur Abdomen/GI: non tender, soft, no organomegaly, no pulsatile mass Extremities/Musculoskelatal: normal inspection Neurologic/Psych: alert, normal mood/affect, oriented x 3 Skin: normal color, warm/dry, no rash Laboratory Results Last 24 Hours Test 05/30/17 21:46 05/30/17 21:49 05/30/17 22:21 05/31/17 07:57 White Blood Count 20.37 K/uL 15.53 K/uL Red Blood Count 5.21 M/uL 4.28 M/uL Hemoglobin 15.8 g/dL 12.4 g/dL Hematocrit 46.8 % 38.5 % Mean Corpuscular Volume 89.8 fL 90.0 fL Mean Corpuscular Hemoglobin 30.3 pg 29.0 pg Mean Corpuscular Hemoglobin Concent 33.8 g/dl 32.2 g/dl Platelet Count 306 K/uL 229 K/uL Mean Platelet Volume 10.6 fL 10.7 fL Neutrophils (%) (Auto) 88.3 % Lymphocytes (%) (Auto) 4.5 % Monocytes (%) (Auto) 6.2 % Eosinophils (%) (Auto) 0.4 % Basophils (%) (Auto) 0.1 % Neutrophils # (Auto) 17.98 K/uL Lymphocytes # (Auto) 0.91 K/uL Monocytes # (Auto) 1.27 K/uL Eosinophils # (Auto) 0.09 K/uL Basophils # (Auto) 0.02 K/uL RDW Standard Deviation 45.9 fL 46.6 fL RDW Coefficient of Variation 14.0 % 14.1 % Immature Granulocyte % (Auto) 0.5 % Immature Granulocyte # (Auto) 0.10 K/uL Urine Color YELLOW Urine Appearance CLOUDY Urine pH 5.0 Urine Specific [place] >= 1.030 Urine Protein 2+ Urine Glucose (UA) NEG Urine Ketones TRACE Urine Occult Blood TRACE Urine Nitrite NEG Urine Bilirubin NEG Urine Urobilinogen NEG Urine Leukocyte Esterase SMALL Urine RBC 0-4 /hpf Urine WBC 10-30 /hpf Urine Epithelial Cells 0-5 /lpf Urine Calcium Oxalate Crystals PRESENT Urine Bacteria 1+ Urine Hyaline Casts 1-5 /lpf Urine Mucus PRESENT Sodium Level 141 mmol/L 144 mmol/L Potassium Level 3.8 mmol/L 3.9 mmol/L Chloride Level 102 mmol/L 110 mmol/L Carbon Dioxide Level 29 mmol/L 25 mmol/L Anion Gap 10.0 mmol/L 10.0 mmol/L Blood Urea Nitrogen 12 mg/dl 11 mg/dl Creatinine 0.71 mg/dl 0.67 mg/dl Est Creatinine Clear Calc Drug Dose 64.4 ml/min 68.2 ml/min Estimated GFR () 100.0 103.2 Estimated GFR (Non- 86.3 89.1 BUN/Creatinine Ratio 17.0 16.0 Random Glucose 182 mg/dl 108 mg/dl Calcium Level 10.1 mg/dl 8.0 mg/dl Total Bilirubin 0.6 mg/dl Aspartate Amino Transf (AST/SGOT) 19 U/L Alanine Aminotransferase (ALT/SGPT) 26 U/L Alkaline Phosphatase 101 U/L Total Protein 7.4 gm/dl Albumin 3.5 gm/dl Globulin 3.9 gm/dl Albumin/Globulin Ratio 0.9 Lipase 400 U/L Troponin I < 0.015 ng/ml Lactic Acid Level 2.9 mmol/L Hepatitis C Antibody Screen NEG Test 05/31/17 08:18 Lactic Acid Level 2.0 mmol/L Assessment & Plan Partial SBO vs enteritis? -Leukocytosis slightly improved to 15K today (20K in ER) - Abdominal pain much improved no further vomiting - Small formed bowel movement last evening - Repeat lactic acid 2.0 Plan: Would continue conservative management at this time. No acute surgical intervention required. Continue IV fluids, NPO, IV pain medication and Zofran as needed. Continue IV antibiotics May have some ice chips Encourage ambulation Continue current medical management Dr. Brody has seen and examined patient, agrees with above.
[2017-05-31 15:00] VITALS: BP 122/81; PULSE 69; TEMP 36.8; O2SAT 94
--- NOTE | 2017-05-31 16:44 | Progress Note ---
Progress Note Date of Service May 31, 2017. Progress Note Follow up exam, patient admitted earlier this AM doing better, less distension, still with some pain + flatus, small BM last evening WBC down to 15 from 20 - Partial SBO vs enteritis Continue Cipro and Flagyl, follow labs encourage ambulation, IV fluids, NPO for now appreciate general surgery consultation
[2017-05-31 23:00] VITALS: BP 136/71; PULSE 87; TEMP 37; O2SAT 92
[2017-06-01] MEDS: NSS + 20MEQ KCL 1000ML 1,000 ML IV SCH ×3 (02:35→22:34)
[2017-06-01] MEDS: CIPROFLOXACIN / D5W 400 MG in PREMIXED IN D5W 200 ML IV SCH ×2 (02:35→13:58)
[2017-06-01 07:40] VITALS: BP 120/57; PULSE 73; TEMP 36.8; O2SAT 94
[2017-06-01] MEDS: METRONIDAZOLE / NSS 500 MG in PREMIXED NSS 100 ML IV SCH ×2 (08:07→16:44)
[2017-06-01 08:15] LABS: BASO % 0.3 %; BASO ABS # 0.02 K/uL (0-0.2); EOS % 1.6 %; EOS ABS # 0.13 K/uL (0-0.5); HEMATOCRIT 34.2 % (37-47); HEMOGLOBIN 10.7 g/dL (12.0-16.0); IG# 0.02 K/uL (0.00-0.02); LYMPH % 7.1 %; LYMPH ABS # 0.56 K/uL (1.2-3.4); MEAN CELL VOLUME 91.4 fL (80-100); MEAN CORPUSCULAR HEMOGLOBIN 28.6 pg (25-34); MEAN CORPUSCULAR HGB CONC 31.3 g/dl (32-36); MONO % 7.8 %; MONO ABS # 0.62 K/uL (0.11-0.59); NEUT % 82.9 %; NEUT ABS # 6.59 K/uL (1.4-6.5); PLATELET COUNT 192 K/uL (130-400); RED CELL DISTRIBUTION WIDTH CV 14.3 % (11.5-14.5); RED CELL DISTRIBUTION WIDTH SD 48.1 fL (36.4-46.3); WHITE BLOOD COUNT 7.94 K/uL (4.8-10.8)
[2017-06-01 08:44] LABS: CALCIUM 7.8 mg/dl (8.5-10.1); CREATININE 0.49 mg/dl (0.60-1.20); POTASSIUM 3.7 mmol/L (3.5-5.1)
[2017-06-01] MEDS: PANTOprazole INJ 40 MG in SYRINGE 0 ML IV SCH (10:37)
[2017-06-01] MEDS ORDERED: BISACODYL 5 MG TABEC PO ONE (11:15)
--- NOTE | 2017-06-01 11:16 | Surgery Progress Note ---
Surgery Progress Note Date of Service Jun 01, 2017. Subjective + feeling well passed some gas, no nausea, no vomiting, no abdominal pain, Objective Vital Signs: Date Time Temp Pulse Resp B/P (MAP) Pulse Ox O2 Delivery O2 Flow Rate FiO2 06/01/17 07:40 36.8 73 16 120/57 (78) 94 Room Air 05/31/17 23:45 Room Air 05/31/17 23:00 37.0 87 18 136/71 (92) 92 Room Air 05/31/17 16:00 Room Air 05/31/17 15:00 36.8 69 20 122/81 (95) 94 Room Air Physical Exam: ODILON drainage General Appearance: WD/WN, no apparent distress Head: normocephalic Neck: supple, no JVD Respiratory/Chest: chest non-tender, lungs clear, normal breath sounds Cardiovascular: regular rate, rhythm, no edema, no gallop, no JVD, no murmur Abdomen: normal bowel sounds, non tender, non distended, no organomegaly Extremities: normal range of motion, non-tender, normal inspection Laboratory Results: Results Past 24 Hours Test 06/01/17 07:20 Range/Units White Blood Count 7.94 4.8-10.8 K/uL Red Blood Count 3.74 4.2-5.4 M/uL Hemoglobin 10.7 12.0-16.0 g/dL Hematocrit 34.2 37-47 % Mean Corpuscular Volume 91.4 80-100 fL Mean Corpuscular Hemoglobin 28.6 25-34 pg Mean Corpuscular Hemoglobin Concent 31.3 32-36 g/dl Platelet Count 192 130-400 K/uL Mean Platelet Volume 11.0 7.4-10.4 fL Neutrophils (%) (Auto) 82.9 % Lymphocytes (%) (Auto) 7.1 % Monocytes (%) (Auto) 7.8 % Eosinophils (%) (Auto) 1.6 % Basophils (%) (Auto) 0.3 % Neutrophils # (Auto) 6.59 1.4-6.5 K/uL Lymphocytes # (Auto) 0.56 1.2-3.4 K/uL Monocytes # (Auto) 0.62 0.11-0.59 K/uL Eosinophils # (Auto) 0.13 0-0.5 K/uL Basophils # (Auto) 0.02 0-0.2 K/uL RDW Standard Deviation 48.1 36.4-46.3 fL RDW Coefficient of Variation 14.3 11.5-14.5 % Immature Granulocyte % (Auto) 0.3 % Immature Granulocyte # (Auto) 0.02 0.00-0.02 K/uL Sodium Level 142 136-145 mmol/L Potassium Level 3.7 3.5-5.1 mmol/L Chloride Level 111 98-107 mmol/L Carbon Dioxide Level 26 21-32 mmol/L Anion Gap 6.0 3-11 mmol/L Blood Urea Nitrogen 8 7-18 mg/dl Creatinine 0.49 0.60-1.20 mg/dl Est Creatinine Clear Calc Drug Dose 93.3 ml/min Estimated GFR () 114.4 Estimated GFR (Non- 98.7 BUN/Creatinine Ratio 17.0 10-20 Random Glucose 81 70-99 mg/dl Calcium Level 7.8 8.5-10.1 mg/dl Magnesium Level 1.8 1.8-2.4 mg/dl Microbiology Results 05/31/17 Urine Culture, Received Pending Assessment & Plan F/U SBO Pt is doing fine, better, passed gas, no abdominal pain, clear diet dulcolax 10 mg po x1 will F/U
--- NOTE | 2017-06-01 15:38 | Progress Note ---
Subjective Date of Service: Jun 01, 2017. Subjective Pt evaluation today including: conversation w/ patient, physical exam, lab review, conversation w/ home energy consultant supervisor, review of inpatient medication list Pain: no pain PO Intake: tolerating clears Voiding: no voiding problems patient feeling even better today, + flatus, received Dulcolax per surgery started on clears reviewed Labs, WBC down to 9 today, Cr stable Problem List Medical Problems: (1) Enteritis Status: Acute (2) Partial small bowel obstruction Status: Acute (3) Sepsis Status: Acute (4) Swelling of right lower extremity Status: Acute Review of Systems Constitutional: + weakness, + fatigue All Other Systems: Reviewed and Negative Medications Current Inpatient Medications Medications (Trade) Dose Ordered Sig/Erick Route Start Time Stop Time Status Last Admin Dose Admin Ioversol (Optiray 320) 111 ml UD PRN IV 05/30/17 22:15 06/03/17 22:14 Pantoprazole Sodium 40 mg/ Syringe 10 ml @ 5 mls/min DAILY@11 IV 05/31/17 11:00 06/30/17 10:59 06/01/17 10:37 5 MLS/MIN Ondansetron HCl (Zofran Odt) 8 mg Q6H PRN PO 05/31/17 01:45 06/30/17 01:44 Acetaminophen (Tylenol Tab) 650 mg Q4H PRN PO 05/31/17 01:45 06/30/17 01:44 Potassium Chloride/Sodium Chloride 1,000 ml @ 100 mls/hr Q10H IV 05/31/17 02:30 06/30/17 02:29 06/01/17 12:33 100 MLS/HR Ciprofloxacin/ Dextrose 400 mg/ Prmx 200 ml @ 100 mls/hr Q12H IV 05/31/17 02:30 06/10/17 02:29 06/01/17 13:58 100 MLS/HR Metronidazole 500 mg/Prmx 100 ml @ 100 mls/hr Q8H IV 05/31/17 08:00 06/10/17 07:59 06/01/17 08:07 100 MLS/HR Acetaminophen 650 mg/Empty Bag 65 ml @ 260 mls/hr Q4H PRN IV 05/31/17 03:00 06/30/17 02:59 05/31/17 03:06 260 MLS/HR Ondansetron HCl (Zofran Inj) 4 mg Q6H PRN IV 05/31/17 03:15 06/30/17 03:14 Objective Vital Signs Date Time Temp Pulse Resp B/P (MAP) Pulse Ox O2 Delivery O2 Flow Rate FiO2 06/01/17 07:55 Room Air 06/01/17 07:40 36.8 73 16 120/57 (78) 94 Room Air 05/31/17 23:45 Room Air 05/31/17 23:00 37.0 87 18 136/71 (92) 92 Room Air 05/31/17 16:00 Room Air Physical Exam General Appearance: WD/WN, no apparent distress Eyes: normal inspection, EOMI, sclerae normal ENT: normal ENT inspection, hearing grossly normal, pharynx normal Neck: supple, no adenopathy, no JVD, trachea midline Respiratory/Chest: chest non-tender, lungs clear, normal breath sounds, no respiratory distress, no accessory muscle use Cardiovascular: regular rate, rhythm, no edema, no gallop, no JVD, no murmur Abdomen: normal bowel sounds, non tender, soft, no organomegaly Extremities: normal range of motion, non-tender, normal inspection, no pedal edema, no calf tenderness, pelvis stable 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, no motor/sensory deficits, alert, normal mood/affect, oriented x 3 Skin: normal color, warm/dry, no rash Laboratory Results Last 24 Hours Test 06/01/17 07:20 White Blood Count 7.94 K/uL Red Blood Count 3.74 M/uL Hemoglobin 10.7 g/dL Hematocrit 34.2 % Mean Corpuscular Volume 91.4 fL Mean Corpuscular Hemoglobin 28.6 pg Mean Corpuscular Hemoglobin Concent 31.3 g/dl Platelet Count 192 K/uL Mean Platelet Volume 11.0 fL Neutrophils (%) (Auto) 82.9 % Lymphocytes (%) (Auto) 7.1 % Monocytes (%) (Auto) 7.8 % Eosinophils (%) (Auto) 1.6 % Basophils (%) (Auto) 0.3 % Neutrophils # (Auto) 6.59 K/uL Lymphocytes # (Auto) 0.56 K/uL Monocytes # (Auto) 0.62 K/uL Eosinophils # (Auto) 0.13 K/uL Basophils # (Auto) 0.02 K/uL RDW Standard Deviation 48.1 fL RDW Coefficient of Variation 14.3 % Immature Granulocyte % (Auto) 0.3 % Immature Granulocyte # (Auto) 0.02 K/uL Sodium Level 142 mmol/L Potassium Level 3.7 mmol/L Chloride Level 111 mmol/L Carbon Dioxide Level 26 mmol/L Anion Gap 6.0 mmol/L Blood Urea Nitrogen 8 mg/dl Creatinine 0.49 mg/dl Est Creatinine Clear Calc Drug Dose 93.3 ml/min Estimated GFR () 114.4 Estimated GFR (Non- 98.7 BUN/Creatinine Ratio 17.0 Random Glucose 81 mg/dl Calcium Level 7.8 mg/dl Magnesium Level 1.8 mg/dl Assessment and Plan 71 yo female with partial small bowel obstruction and enteritis on CT at time of admission - Partial SBO due to small bowel enteritis improving steadily, WBC now normal, no pain, + flatus, no vomiting started on clear liquids today by surgery continue cipro and flagyl IV will advance as tolerated hopeful for discharge tomorrow if further bowel function and eating well - Lactic acidosis: resolved, was due to SBO, enteritis
[2017-06-01 15:51] VITALS: BP 138/60; PULSE 52; TEMP 36.9; O2SAT 93
[2017-06-01 23:05] VITALS: BP 150/76; PULSE 74; TEMP 36.5; O2SAT 95
[2017-06-02] MEDS: METRONIDAZOLE / NSS 500 MG in PREMIXED NSS 100 ML IV SCH ×4 (00:37→23:24)
[2017-06-02] MEDS: CIPROFLOXACIN / D5W 400 MG in PREMIXED IN D5W 200 ML IV SCH ×2 (02:14→14:05)
[2017-06-02 07:04] LABS: BASO % 0.2 %; BASO ABS # 0.01 K/uL (0-0.2); EOS % 2.7 %; EOS ABS # 0.13 K/uL (0-0.5); HEMATOCRIT 33.5 % (37-47); HEMOGLOBIN 10.5 g/dL (12.0-16.0); IG# 0.03 K/uL (0.00-0.02); LYMPH % 10.5 %; MEAN CELL VOLUME 90.3 fL (80-100); MEAN CORPUSCULAR HEMOGLOBIN 28.3 pg (25-34); MEAN CORPUSCULAR HGB CONC 31.3 g/dl (32-36); MONO % 10.8 %; MONO ABS # 0.51 K/uL (0.11-0.59); NEUT % 75.2 %; NEUT ABS # 3.56 K/uL (1.4-6.5); PLATELET COUNT 175 K/uL (130-400); RED CELL DISTRIBUTION WIDTH CV 14.1 % (11.5-14.5); RED CELL DISTRIBUTION WIDTH SD 46.8 fL (36.4-46.3); WHITE BLOOD COUNT 4.74 K/uL (4.8-10.8)
[2017-06-02 07:35] LABS: CALCIUM 7.9 mg/dl (8.5-10.1); CREATININE 0.48 mg/dl (0.60-1.20); POTASSIUM 3.8 mmol/L (3.5-5.1)
[2017-06-02 07:52] VITALS: BP 172/75; PULSE 56; TEMP 36.5; O2SAT 96
[2017-06-02 08:39] VITALS: BP 159/72
--- NOTE | 2017-06-02 09:45 | Surgery Progress Note ---
Surgery Progress Note Date of Service Jun 02, 2017. Subjective + feeling well doing better, passed gas, no BM yet, no nausea, no vomiting, no fever, Objective Vital Signs: Date Time Temp Pulse Resp B/P (MAP) Pulse Ox O2 Delivery O2 Flow Rate FiO2 06/02/17 08:39 159/72 (101) 06/02/17 07:52 36.5 56 16 172/75 (107) 96 Room Air 06/02/17 00:20 Room Air 06/01/17 23:05 36.5 74 16 150/76 (100) 95 Room Air 06/01/17 15:51 36.9 52 18 138/60 (86) 93 Room Air 06/01/17 15:20 Room Air General Appearance: WD/WN, no apparent distress Head: normocephalic Neck: supple, no JVD Respiratory/Chest: chest non-tender, lungs clear Cardiovascular: regular rate, rhythm, no edema, no gallop, no JVD Abdomen: normal bowel sounds, non tender, non distended, soft, no organomegaly Extremities: normal range of motion, non-tender, normal inspection Laboratory Results: Results Past 24 Hours Test 06/02/17 05:56 Range/Units White Blood Count 4.74 4.8-10.8 K/uL Red Blood Count 3.71 4.2-5.4 M/uL Hemoglobin 10.5 12.0-16.0 g/dL Hematocrit 33.5 37-47 % Mean Corpuscular Volume 90.3 80-100 fL Mean Corpuscular Hemoglobin 28.3 25-34 pg Mean Corpuscular Hemoglobin Concent 31.3 32-36 g/dl Platelet Count 175 130-400 K/uL Mean Platelet Volume 11.0 7.4-10.4 fL Neutrophils (%) (Auto) 75.2 % Lymphocytes (%) (Auto) 10.5 % Monocytes (%) (Auto) 10.8 % Eosinophils (%) (Auto) 2.7 % Basophils (%) (Auto) 0.2 % Neutrophils # (Auto) 3.56 1.4-6.5 K/uL Lymphocytes # (Auto) 0.50 1.2-3.4 K/uL Monocytes # (Auto) 0.51 0.11-0.59 K/uL Eosinophils # (Auto) 0.13 0-0.5 K/uL Basophils # (Auto) 0.01 0-0.2 K/uL RDW Standard Deviation 46.8 36.4-46.3 fL RDW Coefficient of Variation 14.1 11.5-14.5 % Immature Granulocyte % (Auto) 0.6 % Immature Granulocyte # (Auto) 0.03 0.00-0.02 K/uL Sodium Level 143 136-145 mmol/L Potassium Level 3.8 3.5-5.1 mmol/L Chloride Level 111 98-107 mmol/L Carbon Dioxide Level 27 21-32 mmol/L Anion Gap 5.0 3-11 mmol/L Blood Urea Nitrogen 5 7-18 mg/dl Creatinine 0.48 0.60-1.20 mg/dl Est Creatinine Clear Calc Drug Dose 95.2 ml/min Estimated GFR () 115.2 Estimated GFR (Non- 99.4 BUN/Creatinine Ratio 10.7 10-20 Random Glucose 92 70-99 mg/dl Calcium Level 7.9 8.5-10.1 mg/dl Magnesium Level 1.8 1.8-2.4 mg/dl Assessment & Plan F/U SBO Pt is doing fine, better, passed gas, no abdominal pain, clear diet dulcolax 10 mg po x1 will F/U 06/02/2017 doing better continue treatment, will F/U F/U SBO Pt is doing fine, better, passed gas, no abdominal pain, clear diet dulcolax 10 mg po x1 will F/U
--- NOTE | 2017-06-02 10:12 | Progress Note ---
Subjective Date of Service: Jun 02, 2017. Subjective Pt evaluation today including: conversation w/ patient, physical exam, lab review, conversation w/ staff consultant, review of inpatient medication list Pain: mild epigastric pain last evening PO Intake: clears Voiding: no voiding problems tolerating clears, + flatus, no BM despite Dulcolax yesterday ambulating in the halls labs reviewed, stable per Dr. Brody, maintain clears, further laxatives, not ready for d/c today Problem List Medical Problems: (1) Enteritis Status: Acute (2) Partial small bowel obstruction Status: Acute (3) Sepsis Status: Acute (4) Swelling of right lower extremity Status: Acute Review of Systems Abdomen: + pain (epigastric, transient, last evening), + constipation All Other Systems: Reviewed and Negative Medications Current Inpatient Medications Medications (Trade) Dose Ordered Sig/Erick Route Start Time Stop Time Status Last Admin Dose Admin Ioversol (Optiray 320) 111 ml UD PRN IV 05/30/17 22:15 06/03/17 22:14 Pantoprazole Sodium 40 mg/ Syringe 10 ml @ 5 mls/min DAILY@11 IV 05/31/17 11:00 06/30/17 10:59 06/01/17 10:37 5 MLS/MIN Ondansetron HCl (Zofran Odt) 8 mg Q6H PRN PO 05/31/17 01:45 06/30/17 01:44 Acetaminophen (Tylenol Tab) 650 mg Q4H PRN PO 05/31/17 01:45 06/30/17 01:44 Ciprofloxacin/ Dextrose 400 mg/ Prmx 200 ml @ 100 mls/hr Q12H IV 05/31/17 02:30 06/10/17 02:29 06/02/17 02:14 100 MLS/HR Metronidazole 500 mg/Prmx 100 ml @ 100 mls/hr Q8H IV 05/31/17 08:00 06/10/17 07:59 06/02/17 08:48 100 MLS/HR Acetaminophen 650 mg/Empty Bag 65 ml @ 260 mls/hr Q4H PRN IV 05/31/17 03:00 06/30/17 02:59 05/31/17 03:06 260 MLS/HR Ondansetron HCl (Zofran Inj) 4 mg Q6H PRN IV 05/31/17 03:15 06/30/17 03:14 Objective Vital Signs Date Time Temp Pulse Resp B/P (MAP) Pulse Ox O2 Delivery O2 Flow Rate FiO2 06/02/17 08:39 159/72 (101) 06/02/17 07:52 36.5 56 16 172/75 (107) 96 Room Air 06/02/17 00:20 Room Air 06/01/17 23:05 36.5 74 16 150/76 (100) 95 Room Air 06/01/17 15:51 36.9 52 18 138/60 (86) 93 Room Air 06/01/17 15:20 Room Air Physical Exam General Appearance: WD/WN, no apparent distress Eyes: normal inspection, EOMI, sclerae normal Respiratory/Chest: chest non-tender, lungs clear, normal breath sounds, no respiratory distress, no accessory muscle use Cardiovascular: regular rate, rhythm, no edema, no gallop, no JVD, no murmur Abdomen: normal bowel sounds, non tender, soft, no organomegaly Extremities: normal range of motion, non-tender, normal inspection, no pedal edema, no calf tenderness, pelvis stable Neurologic/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: 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 tested, no motor/sensory deficits, alert, normal mood/affect, oriented x 3 Skin: normal color, warm/dry, no rash Laboratory Results Last 24 Hours Test 06/02/17 05:56 White Blood Count 4.74 K/uL Red Blood Count 3.71 M/uL Hemoglobin 10.5 g/dL Hematocrit 33.5 % Mean Corpuscular Volume 90.3 fL Mean Corpuscular Hemoglobin 28.3 pg Mean Corpuscular Hemoglobin Concent 31.3 g/dl Platelet Count 175 K/uL Mean Platelet Volume 11.0 fL Neutrophils (%) (Auto) 75.2 % Lymphocytes (%) (Auto) 10.5 % Monocytes (%) (Auto) 10.8 % Eosinophils (%) (Auto) 2.7 % Basophils (%) (Auto) 0.2 % Neutrophils # (Auto) 3.56 K/uL Lymphocytes # (Auto) 0.50 K/uL Monocytes # (Auto) 0.51 K/uL Eosinophils # (Auto) 0.13 K/uL Basophils # (Auto) 0.01 K/uL RDW Standard Deviation 46.8 fL RDW Coefficient of Variation 14.1 % Immature Granulocyte % (Auto) 0.6 % Immature Granulocyte # (Auto) 0.03 K/uL Sodium Level 143 mmol/L Potassium Level 3.8 mmol/L Chloride Level 111 mmol/L Carbon Dioxide Level 27 mmol/L Anion Gap 5.0 mmol/L Blood Urea Nitrogen 5 mg/dl Creatinine 0.48 mg/dl Est Creatinine Clear Calc Drug Dose 95.2 ml/min Estimated GFR () 115.2 Estimated GFR (Non- 99.4 BUN/Creatinine Ratio 10.7 Random Glucose 92 mg/dl Calcium Level 7.9 mg/dl Magnesium Level 1.8 mg/dl Assessment and Plan 71 yo female with partial small bowel obstruction and enteritis on CT at time of admission - Partial SBO due to small bowel enteritis improving steadily, WBC now normal, no pain, + flatus, no vomiting significantly more bowel sounds today Dulcolax again today, continue to ambulate continue clears but can have saltines per surgery continue cipro and flagyl IV for now, can change to PO on discharge believe she can be d/c to home tomorrow - Lactic acidosis: resolved, was due to SBO, enteritis
[2017-06-02] MEDS ORDERED: NURSING VERBAL MED ORDER ONE (10:30)
[2017-06-02] MEDS ORDERED: BISACODYL 5 MG TABEC PO ONE (10:45)
[2017-06-02 11:29] VITALS: BP 158/87
[2017-06-02] MEDS: PANTOprazole INJ 40 MG in SYRINGE 0 ML IV SCH (11:44)
[2017-06-02] MEDS: DOCUSATE SODIUM 100 MG CAP PO SCH ×2 (11:44→20:56)
[2017-06-02] MEDS ORDERED: HydrALAZINE HCL 20 MG/ML VIAL IV. PRN (13:30)
[2017-06-02 13:33] VITALS: BP 132/80; PULSE 58
[2017-06-02 15:54] VITALS: BP 139/74; PULSE 56; TEMP 36.7; O2SAT 93
[2017-06-02 23:15] VITALS: BP 155/77; PULSE 54; TEMP 36.5; O2SAT 96
[2017-06-03] MEDS: CIPROFLOXACIN / D5W 400 MG in PREMIXED IN D5W 200 ML IV SCH (02:12)
[2017-06-03 06:00] LABS: BASO % 0.3 %; BASO ABS # 0.01 K/uL (0-0.2); EOS % 4.2 %; EOS ABS # 0.16 K/uL (0-0.5); HEMATOCRIT 34.7 % (37-47); HEMOGLOBIN 11.3 g/dL (12.0-16.0); IG# 0.02 K/uL (0.00-0.02); LYMPH % 9.4 %; LYMPH ABS # 0.36 K/uL (1.2-3.4); MEAN CORPUSCULAR HGB CONC 32.6 g/dl (32-36); MEAN PLATELET VOLUME 10.8 fL (7.4-10.4); MONO % 12.6 %; MONO ABS # 0.48 K/uL (0.11-0.59); NEUT ABS # 2.79 K/uL (1.4-6.5); PLATELET COUNT 175 K/uL (130-400); RED CELL DISTRIBUTION WIDTH SD 45.6 fL (36.4-46.3); WHITE BLOOD COUNT 3.82 K/uL (4.8-10.8)
[2017-06-03 06:38] LABS: CALCIUM 8.1 mg/dl (8.5-10.1); CREATININE 0.48 mg/dl (0.60-1.20); POTASSIUM 3.5 mmol/L (3.5-5.1)
[2017-06-03 07:13] VITALS: BP 175/82; PULSE 74; TEMP 36.5; O2SAT 94
[2017-06-03] MEDS: METRONIDAZOLE / NSS 500 MG in PREMIXED NSS 100 ML IV SCH (07:47)
[2017-06-03] MEDS: DOCUSATE SODIUM 100 MG CAP PO SCH (07:47)
[2017-06-03] MEDS: PANTOprazole INJ 40 MG in SYRINGE 0 ML IV SCH (10:40)
--- NOTE | 2017-06-03 11:22 | Surgery Progress Note ---
Surgery Progress Note Date of Service Jun 03, 2017. Subjective + feeling well pt is doing fine, passed BM, no abdominal pain, no nausea, no vomiting, Objective Vital Signs: Date Time Temp Pulse Resp B/P (MAP) Pulse Ox O2 Delivery O2 Flow Rate FiO2 06/03/17 07:45 Room Air 06/03/17 07:13 36.5 74 18 175/82 (113) 94 Room Air 06/02/17 23:20 Room Air 06/02/17 23:15 36.5 54 16 155/77 (103) 96 Room Air 06/02/17 15:54 36.7 56 17 139/74 (95) 93 Room Air 06/02/17 15:20 Room Air 06/02/17 13:33 58 132/80 (97) 06/02/17 11:29 158/87 (110) General Appearance: WD/WN, no apparent distress Head: normocephalic Neck: supple, no JVD Respiratory/Chest: chest non-tender, lungs clear, normal breath sounds Cardiovascular: regular rate, rhythm, no edema, no gallop Abdomen: normal bowel sounds, non tender, non distended, soft Extremities: normal range of motion, non-tender, normal inspection Laboratory Results: Results Past 24 Hours Test 06/03/17 05:37 Range/Units White Blood Count 3.82 4.8-10.8 K/uL Red Blood Count 3.90 4.2-5.4 M/uL Hemoglobin 11.3 12.0-16.0 g/dL Hematocrit 34.7 37-47 % Mean Corpuscular Volume 89.0 80-100 fL Mean Corpuscular Hemoglobin 29.0 25-34 pg Mean Corpuscular Hemoglobin Concent 32.6 32-36 g/dl Platelet Count 175 130-400 K/uL Mean Platelet Volume 10.8 7.4-10.4 fL Neutrophils (%) (Auto) 73.0 % Lymphocytes (%) (Auto) 9.4 % Monocytes (%) (Auto) 12.6 % Eosinophils (%) (Auto) 4.2 % Basophils (%) (Auto) 0.3 % Neutrophils # (Auto) 2.79 1.4-6.5 K/uL Lymphocytes # (Auto) 0.36 1.2-3.4 K/uL Monocytes # (Auto) 0.48 0.11-0.59 K/uL Eosinophils # (Auto) 0.16 0-0.5 K/uL Basophils # (Auto) 0.01 0-0.2 K/uL RDW Standard Deviation 45.6 36.4-46.3 fL RDW Coefficient of Variation 14.0 11.5-14.5 % Immature Granulocyte % (Auto) 0.5 % Immature Granulocyte # (Auto) 0.02 0.00-0.02 K/uL Sodium Level 143 136-145 mmol/L Potassium Level 3.5 3.5-5.1 mmol/L Chloride Level 110 98-107 mmol/L Carbon Dioxide Level 26 21-32 mmol/L Anion Gap 7.0 3-11 mmol/L Blood Urea Nitrogen 3 7-18 mg/dl Creatinine 0.48 0.60-1.20 mg/dl Est Creatinine Clear Calc Drug Dose 95.2 ml/min Estimated GFR () 115.2 Estimated GFR (Non- 99.4 BUN/Creatinine Ratio 6.8 10-20 Random Glucose 108 70-99 mg/dl Calcium Level 8.1 8.5-10.1 mg/dl Assessment & Plan F/U SBO Pt is doing fine, better, passed gas, no abdominal pain, clear diet dulcolax 10 mg po x1 will F/U 06/02/2017 doing better continue treatment, will F/U 06/03/2017 doing fine, pt can be discharged home today, F/U Ronn Roth, in 2 weeks F/U SBO Pt is doing fine, better, passed gas, no abdominal pain, clear diet dulcolax 10 mg po x1 will F/U 06/02/2017 doing better continue treatment, will F/U
[2017-06-03] MEDS ORDERED: CIPROFLOXACIN 500 MG TAB PO SCH (12:00)
[2017-06-03] MEDS ORDERED: CPR500 PO (12:28)
[2017-06-03] MEDS ORDERED: MTR500 PO (12:28)
--- NOTE | 2017-06-03 12:32 | Discharge Instructions ---
Discharge Instructions Date of Service Jun 03, 2017. Admission Reason for Admission: Partial Small Bowel Obstuction Discharge Discharge Diagnosis / Problem: Partial small bowel obstruction Discharge Goals Goal(s): Decrease discomfort, Improve function, Improve disease control, Learn about illness, Diagnostic testing, Therapeutic intervention, Prevent Disease Progression Activity Recommendations Activity Limitations: resume your previous activity . Instructions / Follow-Up Instructions / Follow-Up New medications: Ciprofloxacin 500 mg twice daily and Flagyl 500 mg three times daily until prescription is completed Resume all other regular home medications FOLLOW-UPS: Please follow-up with your PCP on June 07 at 2:00 PM Please follow-up with Dr. Brody on June 12 at 3:00 PM- phone # [phone] Please follow-up/keep all of your subspecialty appointments Current Hospital Diet Patient's current hospital diet: Low Fiber Diet Discharge Diet Recommended Diet: Low Fiber Diet (slowly advance as tolerated ) Pending Studies Studies pending at discharge: no Medical Emergencies . Who to Call and When: Medical Emergencies: If at any time you feel your situation is an emergency, please call 911 immediately. . Non-Emergent Contact Non-Emergency issues call your: Primary Care Provider, Surgeon Call Non-Emergent contact if: you have a fever, your pain is not controlled, your pain is worsening, your pain is unusual for you, your pain is concerning you, you have any medication questions . . "Provider Documentation" section prepared by Silvia Núñze. . VTE Core Measure Inpt VTE Proph given/why not?: SCD's
--- NOTE | 2017-06-03 12:45 | Discharge Summary ---
Discharge Summary Date of Service Jun 03, 2017. Discharge Summary Admission Date: May 31, 2017 at 01:18 Discharge Date: Jun 03, 2017 Discharge Disposition: Home Principal Diagnosis: Partial small bowel obstruction Problems/Secondary Diagnoses: enteritis lactic acidosis GERD pre-diabetic Immunizations: Have You Had Influenza Vaccine: No History of Tetanus Vaccine?: HAD IT BUT DOESN'T REMEMER WHEN. History of Pneumococcal: No History of Hepatitis B Vaccine: No Procedures: CHEST ONE VIEW PORTABLE CLINICAL HISTORY: epigastric pain pain COMPARISON STUDY: No previous studies for comparison. FINDINGS: The bones soft tissues and hemidiaphragms are normal. The cardiomediastinal silhouette is normal. The lungs are clear. The pulmonary vasculature is normal. IMPRESSION: Negative chest. The above report was generated using voice recognition software. It may contain grammatical, syntax or spelling errors. Electronically signed by: Artem Lott M.D. 05/30/2017 10:42 PM Dictated Date/Time: 05/30/2017 10:42 PM The status of this report is Signed. Draft = Not yet reviewed or approved by Radiologist. Signed = Reviewed and approved by Radiologist. ABD/PELVIS IV CONTRAST ONLY CT DOSE: 412.60 mGy.cm HISTORY: Pain epigastric pain, n/v TECHNIQUE: Multiaxial CT images of the abdomen and pelvis were performed following the use of intravenous contrast. A dose lowering technique was utilized adhering to the principles of ALARA. COMPARISON STUDY: 12/21/2015 FINDINGS: Lung bases are clear. Liver is uniform throughout. Gallstone the region of the gallbladder neck. No significant gallbladder distention. Spleen is uniform. Kidneys enhance appropriately. No evidence for hydronephrosis. Findings suggesting ileus versus partial distal small bowel obstruction. Proximal left upper quadrant small bowel loops suggests a slight degree of hyperemia of the bowel wall. This is seen more significantly in the right lower quadrant region where moderate wall edema appears to be present. Appearance is most consistent without inflammatory bowel process and/or severe enteritis. A small amount of free fluid is identified in the right lower quadrant as well as in within the pelvic cul-de-sac region. There is been a bladder suspension procedure which has been described previously. The colonic pattern appears to be nonobstructive. There is trace amount of perihepatic ascites. IMPRESSION: 1. Moderately edematous and hyperemic loops of small bowel in the right central pelvic and right lower quadrant region. 2. This is accompanied by a moderate degree of surrounding free fluid and/or ascites with extension to the pelvic cul-de-sac and to a lesser extent to the perihepatic region. 3. Appearance suggests a nonspecific enteritis and/or small bowel inflammatory process with mild secondary inflammatory changes of the appendix. No evidence for primary appendicitis. 4. No evidence for drainable abscess or collection at this time. 5. Small bowel pattern currently suggests partial distal small bowel obstructive change 6. Bladder suspension procedure which has been present previously. The above report was generated using voice recognition software. It may contain grammatical, syntax or spelling errors. Electronically signed by: Artem Lott M.D. 05/30/2017 10:59 PM Dictated Date/Time: 05/30/2017 10:51 PM The status of this report is Signed. Draft = Not yet reviewed or approved by Radiologist. Signed = Reviewed and approved by Radiologist Consultations: General surgery- Dr. Brody Medication Reconciliation New Medications: Ciprofloxacin (Ciprofloxacin HCl) 500 Mg Tab 500 MG PO BID for 4 Days, #8 TAB Metronidazole (Metronidazole) 500 Mg Tab 500 MG PO Q8 for 4 Days, #12 TAB Continued Medications: Aspirin (Aspirin Chewable) 81 Mg Chew 81 MG PO QAM Calcium Carbonate (Calcium) 600 Mg Tab 600 MG PO BID Cholecalciferol (Vitamin D) 5,000 Unit Tab 5000 UNITS PO DAILY Multivitamin (Multivitamin) Tab 1 TAB PO DAILY AFTERNOON, TAB Omeprazole (Prilosec) 20 Mg Capcr 20 MG PO DAILY, CAP [Post Cataract Gtts] () OP UD Discharge Exam Review of Systems: Constitutional: No fever, No chills, No sweats, No weakness, No fatigue Eyes: No worsening of vision ENT: No hearing loss Respiratory: No cough, No shortness of breath, No hemoptysis Cardiovascular: No chest pain, No edema, No palpitations Abdomen: No pain, No nausea, No vomiting, No diarrhea, No constipation Musculoskeletal: No joint pain, No muscle pain, No swelling, No calf pain Genitourinary - Female: No dysuria, No hematuria Neurologic: No weakness, No numbness/tingling Psychiatric: No depression symptoms, No anxiety Endocrine: No fatigue Hematologic / Lymphatic: No abnormal bleeding/bruising Integumentary: No rash, No itch, No new/changing skin lesions Physical Exam: General Appearance: no apparent distress Eyes: normal inspection, PERRL ENT: hearing grossly normal Neck: supple Respiratory/Chest: lungs clear, no respiratory distress, no accessory muscle use Cardiovascular: regular rate, rhythm Abdomen / GI: normal bowel sounds, non tender, soft Extremities: no calf tenderness, no pedal edema Neurologic/Psychiatric: alert, normal mood/affect, oriented x 3 Skin: normal color, warm/dry, no rash Hospital Course Admission H&P: The patient is a 71-year-old female who presents to the emergency room with 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 She reports abdominal pain over the past 2 weeks, which are temporarily resolves, and then returned more intensely today. She's had constipation, abdominal pain, nausea and vomiting all worsening today. She does have history of IBS. She had cataract surgery in the right eye 4 days ago. Her diet today consisted of one just for breakfast , and then ham, potatoes and string beans for dinner. She denies having any similar symptoms in the past. She denies any blood in urine or stool. Physical Exam Vital Signs Date Time Temp Pulse Resp B/P (MAP) Pulse Ox O2 Delivery O2 Flow Rate FiO2 05/31/17 02:06 36.5 95 18 144/83 92 Room Air 05/31/17 02:05 Room Air 05/31/17 01:51 89 16 124/86 91 05/30/17 23:53 93 16 131/93 92 Room Air 05/30/17 23:03 100 16 124/70 94 Room Air 05/30/17 22:11 86 05/30/17 21:23 36.3 93 18 114/83 93 Room Air The patient is awake, alert and oriented 3, well developed and well nourished, normocephalic and atraumatic, lying in bed and in no acute distress. HEENT--PERRL, EOMI, mucous membranes and oropharynx dry. Neck--supple. No JVD. No bruits. Thyroid normal, trachea midline, no adenopathy. Heart--normal S1 and S2. No murmurs, rubs or gallops. Lungs--clear bilaterally, no respiratory distress, no accessory muscle use. Abdomen--decreased bowel sounds, mildly firm, mildly tender. Nondistended, no hernias or masses, no organomegaly. Extremities--no cyanosis or clubbing. No edema. There are good distal pulses b/ l. Dermatologic--normal skin turgor, normal color, no abnormal lymph nodes, no rash. Neurologic--cranial nerves II through XII grossly intact. Rheumatologic--normal range of motion. Psychiatric--normal affect. Hospital Course: 71 yo female with partial small bowel obstruction and enteritis on CT at time of admission Partial SBO due to small bowel enteritis: - Admitted med/surg - Cipro BID + Flagyl TID x7 days - Slowly advanced diet - Lactic acidosis- RESOLVED - Treated w/ Dulcolax- +BM prior to discharge - General surgery consulted, appreciate recommendations -- stable for discharge -- f/u within 2 weeks Pre-diabetic- last hgbA1c 6.4% GERD: Protonix- resume Prilosec at discharge DVT prophylaxis: TEDs/SCDs, ambulation Code Status: LEVEL I, FULL Dispo: Discharge to home Supervising Note Dr. Delarosa I performed a history and physical examination on the patient. I reviewed above note and agree with it. I discussed plan with APC and patient. During my face to face encounter with the patient, I answered all of the patient's questions. Total Time Spent: Greater than 30 minutes This includes examination of the patient, discharge planning, medication reconciliation, and communication with other providers. Discharge Instructions Please refer to the electronic Patient Visit Report (Discharge Instructions) for additional information. Follow-Up Please follow-up with your PCP on June 07 at 2:00 PM Please follow-up with Dr. Brody on June 12 at 3:00 PM- phone # [phone] Please follow-up/keep all of your subspecialty appointments Additional Copies To Nicky Roman M.D.
[2017-06-03] MEDS ORDERED: METRONIDAZOLE 500 MG TAB PO SCH (14:00)
[2017-06-03] MEDS ORDERED: CLC100 PO (14:26)
[2017-06-03 15:25] VITALS: BP 137/83; PULSE 65; TEMP 36.5; O2SAT 94
[2017-06-03 15:56] VITALS: BP 137/83; PULSE 65; TEMP 36.5; O2SAT 94
[2017-06-04] MEDS ORDERED: PANTOprazole SOD 40 MG TAB PO SCH (09:00)
[2017-06-05] MEDS ORDERED: METR-163 PO (13:18)
[2017-06-05] MEDS ORDERED: DOCU100C31 PO (13:18)
[2017-06-05] MEDS ORDERED: CIPR-255 PO (13:18)
== END 2017-06-03 17:45 | disposition home or self-care (01) | DRG 389 ==
LOC: C.EDB 21:06 → C.MSN 05-31 01:18 → ENRESERV 05-31 01:44
PROVIDERS: ADMIT Hospitalist; ATTEND Internal Medicine
DX: K56.600 Partial intestinal obstruction, unspecified as to cause (principal); E87.2 Acidosis; K21.9 Gastro-esophageal reflux disease without esophagitis; K58.9 Irritable bowel syndrome, unspecified; Z88.0 Allergy status to penicillin; K52.9 Noninfective gastroenteritis and colitis, unspecified; R73.03 Prediabetes

== ENCOUNTER → 2017-06-10 | Day surgery (SDC) | payer OTHER ==
[2017-06-05 13:20] VITALS: Ht 152.4 cm; Wt 63.6 kg
[~2017-06-10] VITALS: Ht 152.4 cm; Wt 63.6 kg
[~2017-06-10] MED LIST changes: +500ML BSS 0.3ML EPI 1:1000PF IRRIG ONE; +ACETAMINOPHEN 325 MG TAB PO PRN; +AMVISC PLUS 0.8ML SYRINGE INT OCU ONE; +BRIMONIDINE TART 0.2% OP SOLN PER DROP CHARGE ONE; +BSS FLUSH ONE; -CALC-51 PO; +CIPR-255 PO; +DOCU100C31 PO; +ENDOCOAT 0.85ML SYRINGE INT OCU ONE; +EpINEphrine INJ 1MG/ML AMP 1 MG/ML AMP ONE; +GATIFLOXACIN OP SOLN PER DROP CHARGE OPL SCH; +LACTATED RINGER'S 1000ML 500 ML IV SCH; +LIDOCAINE 4% OP SOLN DROP CHARGE ONE; +LIDOCAINE 4% OP SOLN DROP CHARGE OPL SCH; +LIDOCAINE HCL 1% MPF 2 ML VIAL ONE; +METR-163 PO; +MIDAZOLAM HCL 1 MG/ML 2ML VIAL ONE; +MOXIFLOXACIN OPH SOLN PER DROP CHARGE ONE; -MULT-506 PO; +NURSING VERBAL MED ORDER ONE; +POVIDONE-IODINE OP SOLN 30 ML BTL ONE; +PROPARACAINE 0.5% OP SOLN PER DROP CHARGE OPL SCH; +TOBRAMYCIN/DEXAMETHASONE OPH OINT PER APPLN CHARGE ONE; -VITAMIN D3 PO
[2017-06-10] MEDS: PHENYLEPHRINE HCL 2.5% OP SOLN PER DROP CHARGE OPL SCH ×2 (07:25→07:31)
[2017-06-10] MEDS: TROPICAMIDE 1% OP SOLN PER DROP CHARGE OPL SCH ×2 (07:26→07:32)
[2017-06-10] MEDS: CYCLOPENTOLATE HCL 1% OP SOLN PER DROP CHARGE OPL SCH ×2 (07:27→07:33)
[2017-06-10] MEDS: KETOROLAC 0.5% OP SOLN PER DROP CHARGE OPL SCH ×2 (07:28→07:34)
[2017-06-10] MEDS: MOXIFLOXACIN OPH SOLN PER DROP CHARGE OPL SCH ×2 (07:29→07:39)
--- NOTE | 2017-06-10 09:02 | [facility] Operative Report ---
Operative Report Operative Date Jun 10, 2017. 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 Gentle IV sedation was given, and the patient's left eye was prepped and draped in usual sterile fashion. A wire lid speculum was placed into the left eye and the operating microscope was swung into position. Using 0.12 forceps and a Supersharp blade a paracentesis port was made 2 o'clock hours away from the 3 o'clock position of the patient's left eye. 1% non-preserved Lidocaine was then injected into the anterior chamber for anesthesia. A 2.0 mm keratotome blade was then used to make a shelved clear corneal incision at the 3 o'clock position of the left eye. Amvisc was injected into the anterior chamber and a cystotome and Utrata forceps were used to perform a curvilinear capsulorrhexis. BSS on a hydrodissection cannula was used to hydrodissect the lens nucleus away from the capsular bag. The phacoemulsification handpiece was then used in a stop and chop fashion to remove the lens nucleus. The irrigation and aspiration handpiece was then used to remove the residual cortical material. Amvisc was injected into the capsular bag and anterior chamber and a [employer]ch [employer] Lomb MX60 14.0 Diopter intraocular lens was injected into the capsular bag. Irrigation and aspiration handpiece was used to remove the residual viscoelastic material. The wounds were hydrated and noted to be watertight. The wire lid speculum was removed from the eye. Vigamox, Brimonidine, and TobraDex ointment were placed on the eye and it was shielded. It should be noted that EndoCoat was used extensively during the case to protect the cornea endothelium. DISPOSITION: The patient tolerated the procedure well and was wheeled to the post anesthesia care unit in stable condition. I attest to the content of the Intraoperative Record and any orders documented therein. Any exceptions are noted below. I attest to the content of the Intraoperative Record and any orders documented therein. Any exceptions are noted below.
--- NOTE | 2017-06-10 09:05 | Discharge Instructions-SurgCtr ---
Discharge Instructions Date of Service Jun 10, 2017. Visit Reason for Visit: Left Cataract Discharge Discharge Diagnosis / Problem: cataract left eye Discharge Goals Goal(s): Improve function Activity Recommendations Activity Limitations: per Instructions/Follow-up section Lifting Limitations: no more than 5 pounds Anesthesia . Post Anesthesia Instructions: If you have had General Anesthesia or IV Sedation: * Do not drive today. * Resume driving when surgeon permits. * Do not make important decisions or sign legal documents today. * Call surgeon for: 1. Temperature elevations greater than 101 degrees F. 2. Uncontrollable pain. 3. Excessive bleeding. 4. Persistent nausea and vomiting. 5. Medication intolerance (nausea, vomiting or rash). * For nausea and vomiting use only clear liquids such as: tea, soda, bouillon until nausea subsides, then gradually increase diet as tolerated. * If you have any concerns or questions, call your surgeon's office. If physician is unavailable and it is an emergency, call 911 or go to the nearest emergency room. . Instructions / Follow-Up Instructions / Follow-Up ACTIVITY RECOMMENDATIONS: * Light activities * You may walk outside, read, watch television. * Mild irritation and blurred vision are common for the first few days, redness around the white part of the eye is common. MEDICATIONS: Resume previous medications unless instructed otherwise by your surgeon. Eye drops (today and tomorrow): Cipro - one drop in operative eye every 2 hours while awake Prednisolone 1% - one drop in operative eye every 2 hours while awake Ilevro - one drop operative eye 1 times daily SPECIAL CARE INSTRUCTIONS: * If any problems or concerns, please call Dr. Rodriguez's office at . * Keep plastic shield taped over eye to sleep at night. * Keep plastic shield taped over eye except to administer eye drops. * Keep plastic shield on until office visit the following day. FOLLOW UP VISIT: Follow-up with Dr. Rodriguez in the [place] office as scheduled. If not already scheduled, please call the office at . Diet Recommendations Home Diet: resume previous diet Procedures Procedures Performed: Left Cataract Phacoemulsification With Intraocular Lens Implant Pending Studies Studies pending at discharge: no Medical Emergencies . Who to Call and When: Medical Emergencies: If at any time you feel your situation is an emergency, please call 911 immediately. . 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 . "Provider Documentation" section prepared by Brandon Rodriguez. .
--- NOTE | 2017-06-10 09:22 | Anesthesia Progress Nt - [facility] ---
Anesthesia Post Op Note Date & Time Jun 10, 2017 at 09:22 Vital Signs Pain Intensity: 0 Vital Signs Past 12 Hours Date Time Temp Pulse Resp B/P (MAP) Pulse Ox O2 Delivery O2 Flow Rate FiO2 06/10/17 09:04 36.6 51 16 162/71 (101) 94 Room Air 06/10/17 07:17 36.4 50 16 157/79 (105) 97 Room Air Notes Mental Status: alert / awake / arousable, participated in evaluation Pt Amnestic to Procedure: Yes Nausea / Vomiting: adequately controlled Pain: adequately controlled Airway Patency, RR, SpO2: stable & adequate BP & HR: stable & adequate Hydration State: stable & adequate Anesthetic Complications: no major complications apparent
[2017-06-10 09:28] VITALS: BP 158/75; PULSE 55; TEMP 36.6; O2SAT 97
== END | disposition home or self-care (01) ==
LOC: X.SURG 07:06
PROVIDERS: ATTEND Ophthalmology
DX: H26.9 Unspecified cataract (principal); M19.90 Unspecified osteoarthritis, unspecified site; Z85.3 Personal history of malignant neoplasm of breast

== ENCOUNTER → 2017-06-25 | Outpatient (CLI) | payer OTHER ==
[~2017-06-25] MED LIST changes: -500ML BSS 0.3ML EPI 1:1000PF IRRIG ONE; -ACETAMINOPHEN 325 MG TAB PO PRN; -AMVISC PLUS 0.8ML SYRINGE INT OCU ONE; -BRIMONIDINE TART 0.2% OP SOLN PER DROP CHARGE ONE; -BSS FLUSH ONE; -ENDOCOAT 0.85ML SYRINGE INT OCU ONE; -EpINEphrine INJ 1MG/ML AMP 1 MG/ML AMP ONE; -GATIFLOXACIN OP SOLN PER DROP CHARGE OPL SCH; -LACTATED RINGER'S 1000ML 500 ML IV SCH; -LIDOCAINE 4% OP SOLN DROP CHARGE ONE; -LIDOCAINE 4% OP SOLN DROP CHARGE OPL SCH; -LIDOCAINE HCL 1% MPF 2 ML VIAL ONE; -MIDAZOLAM HCL 1 MG/ML 2ML VIAL ONE; -MOXIFLOXACIN OPH SOLN PER DROP CHARGE ONE; -NURSING VERBAL MED ORDER ONE; -POVIDONE-IODINE OP SOLN 30 ML BTL ONE; -PROPARACAINE 0.5% OP SOLN PER DROP CHARGE OPL SCH; -TOBRAMYCIN/DEXAMETHASONE OPH OINT PER APPLN CHARGE ONE
== END | disposition home or self-care (01) ==
LOC: C.MAMM 08:04
PROVIDERS: ATTEND Internal Medicine Hematology & Oncology
DX: Z85.3 Personal history of malignant neoplasm of breast (principal); M81.0 Age-related osteoporosis without current pathological fracture; M85.851 Other specified disorders of bone density and structure, right thigh

== ENCOUNTER → 2017-08-05 | Outpatient (CLI) | payer OTHER ==
[2017-08-05 17:09] LABS: CALCIUM 9.1 mg/dl (8.5-10.1); CREATININE 0.67 mg/dl (0.60-1.20)
== END | disposition home or self-care (01) ==
LOC: C.LABBFT 15:40
PROVIDERS: ATTEND Internal Medicine
DX: M81.0 Age-related osteoporosis without current pathological fracture (principal); R51 Headache

== ENCOUNTER → 2017-08-14 | Outpatient (CLI) | payer OTHER ==
--- NOTE | 2017-08-14 10:42 | DIAGNOSTIC IMAGING REPORT ---
THORACIC SPINE 3 VIEWS ROUTINE CLINICAL HISTORY: 71 years-old Female presenting with M40.209 osteoporosis, bulging and upper back. TECHNIQUE: 3 views of the thoracic spine were obtained. COMPARISON: None. FINDINGS: Osteopenia suggested. Slightly exaggerated thoracic kyphosis without a focal compression deformity. Limited visualization of the upper thoracic spine. Vertebral bodies grossly maintained normal height and alignment. Disc osteophyte complexes noted at several levels though disc spaces are largely preserved. No evidence of subluxation. Minimal dextrocurvature of the lower thoracic spine, possibly positional. Visualized portion of the thorax and abdomen normal. IMPRESSION: No evidence of a compression deformity. Exaggerated thoracic kyphosis likely a consequence of osteopenia. Multilevel degenerative changes of the thoracic spine. Electronically signed by: Cuauhtemoc Verma M.D. 08/14/2017 10:40 AM Dictated Date/Time: 08/14/2017 10:38 AM
[2017-08-14 13:58] LABS: CALCIUM 9.1 mg/dl (8.5-10.1); CREATININE 0.59 mg/dl (0.60-1.20)
== END | disposition home or self-care (01) ==
LOC: C.RAD1850 09:27
PROVIDERS: ATTEND Internal Medicine Rheumatology
DX: M40.209 Unspecified kyphosis, site unspecified (principal); N20.0 Calculus of kidney; E55.9 Vitamin D deficiency, unspecified; M81.0 Age-related osteoporosis without current pathological fracture

== ENCOUNTER → 2017-09-04 | Outpatient (CLI) | payer OTHER | END | disposition home or self-care (01) | LOC: C.LAB1850 09:55 | PROVIDERS: ATTEND Internal Medicine Rheumatology | DX: N20.0 Calculus of kidney (principal); E55.9 Vitamin D deficiency, unspecified; M81.0 Age-related osteoporosis without current pathological fracture ==

== ENCOUNTER → 2017-09-11 | Outpatient (CLI) | payer OTHER ==
--- NOTE | 2017-09-11 13:21 | DIAGNOSTIC IMAGING REPORT ---
C-SPINE ROUTINE 4 OR 5 VIEWS HISTORY: Pain M54.2 Neck pain5 [id number] COMPARISON: None. FINDINGS: The cervical spine is visualized from C1 through the superior endplate of T1. There is no fracture. No subluxation. Moderate degenerative disc change C5-C7. Minimal osteophytic narrowing of the neuroforamina bilaterally at C6-C7 IMPRESSION: Moderate degenerative change from C5 through C7. No acute process. The above report was generated using voice recognition software. It may contain grammatical, syntax or spelling errors. Electronically signed by: Artem Lott M.D. 09/11/2017 1:20 PM Dictated Date/Time: 09/11/2017 1:19 PM
== END | disposition home or self-care (01) ==
LOC: C.RAD 12:29
PROVIDERS: ATTEND Internal Medicine
DX: M54.2 Cervicalgia (principal)

== ENCOUNTER → 2017-09-26 | Outpatient (CLI) | payer OTHER ==
--- NOTE | 2017-09-26 16:02 | DIAGNOSTIC IMAGING REPORT ---
BRAIN WITHOUT CONTRAST HISTORY: 71 years-old Female R51 subacute headaches with history of prior cataract repair. History of breast cancer. 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 There is no restricted diffusion to suggest acute or subacute infarction. Diffusion-weighted images are mildly motion degraded. The imaged midline structures including the corpus callosum, brainstem, optic chiasm, infundibulum, pituitary and pineal glands appear unremarkable on the sagittal T1 series. No cerebellar tonsillar herniation. Imaged cervical spine is unremarkable with mild degenerative changes. There is no acute intracranial hemorrhage, midline shift, abnormal extra-axial collections, hydrocephalus or intracranial mass. No significant brain parenchymal signal abnormalities. There is only mild brain atrophy. The major flow voids at the level of the skull base appear patent and within normal limits. Evidence of prior bilateral cataract repair with otherwise unremarkable appearance of the orbits. The soft tissues and skull are unremarkable. Leftward bowing and spurring of the nasal septum. Right-sided rosa bullosa. Mild mucosal thickening of the ethmoid air cells. IMPRESSION: No acute intracranial abnormality. The above report was generated using voice recognition software. It may contain grammatical, syntax or spelling errors. Electronically signed by: Shar Emanuel M.D. 09/26/2017 4:01 PM Dictated Date/Time: 09/26/2017 3:57 PM
== END | disposition home or self-care (01) ==
LOC: C.MRI 15:04
PROVIDERS: ATTEND Internal Medicine
DX: R51 Headache (principal)

== ENCOUNTER 2023-05-22 15:18 | Inpatient (IN) ==
[2023-05-22] MEDS ORDERED: ONDANSETRON INJ 2 MG/ML 2 ML VIAL IV STA ×2 (15:38→20:28)
[2023-05-22] MEDS ORDERED: MoRPHine SULFATE 2 MG/ML CARP IV STA (15:38)
--- NOTE | 2023-05-22 15:38 | ED Triage Note ---
Date of Service May 22, 2023 Provider in Triage Author: Anant Cote History of Present Illness This patient was briefly evaluated while in triage. An abbreviated physical exam was performed. This patient is a 77-year-old Female who presents to the ED for evaluation of upper central abdominal pain/n/v constipation, tried an enema and prune juice "I think i have a bowel blockage" - has a hx of Physical Exam GENERAL: NAD CARDIOVASCULAR: RRR RESPIRATORY: CTA ABDOMEN: BS hypoactive, abdomen diffusely TTP and distended. Initial orders for labs and / or imaging were placed and patient was placed in the waiting area until a bed is available. Please see further documentation for the full ED course.
[2023-05-22] MEDS ORDERED: SODIUM CHLORIDE 0.9% 1,000 ML IV SCH (15:39)
[2023-05-22 17:52] LABS: Hematocrit (blood only) 43.4 % (37.0-47.0); Hemoglobin 14.2 g/dl (12.0-16.0); Mean Corpuscular Hemoglobin 29.6 pg (25.0-34.0); Mean Corpuscular Hgb Conc 32.7 g/dL (32.0-36.0); Mean Corpuscular Volume 90.4 fL (80.0-100.0); Mean Platelet Volume 10.9 fL (9.4-12.4); Platelet Count 269 K/uL (130-400); RDW Coefficient of Variation 13.1 % (11.5-14.5); RDW Standard Deviation 43.2 fL (36.4-46.3); White Blood Count 10.51 K/ul (4.8-10.8)
[2023-05-22 18:12] LABS: Alanine Aminotransferase 10 U/L (7-52); Albumin Globulin Ratio 1.4 (0.9-2); Albumin Level 3.9 gm/dl (3.4-5.0); Alkaline Phosphatase 96 U/L (34-104); Anion Gap 12 (3-11); Aspartate Aminotransferase 15 U/L (13-39); BUN Creatinine Ratio 25.9 (10-20); Bilirubin,Total 0.8 mg/dl (0.2-1.0); Blood Urea Nitrogen 14 mg/dl (6-23); Calcium 9.1 mg/dl (8.6-10.3); Carbon Dioxide 25 mmol/L (21-32); Chloride 101 mmol/L (98-107); Est GFR (African American) 106.2 ml/min; Est GFR (Non-African American) 91.7 ml/min; Globulin 2.8 gm/dl (2.5-4.0); Glucose 160 mg/dl (70-99(Fasting)); Lipase 35 U/L (11-82); Potassium 3.8 mmol/L (3.5-5.1); Sodium 138 mmol/L (136-145); Total Protein 6.7 gm/dl (6.0-8.3)
[2023-05-22 18:15] LABS: Troponin I High Sensitivity 4.3 pg/ml (0-14)
[2023-05-22 18:17] LABS: Basophils # (auto) 0.02 K/uL (0.00-0.20); Basophils % (auto) 0.2 %; Immature Granulocytes # (auto) 0.09 K/uL (0.01-0.20); Immature Granulocytes % (auto) 0.9 %; Lymphocytes # (auto) 0.33 K/uL (1.20-3.40); Lymphocytes % (auto) 3.1 %; Monocytes % (auto) 3.8 %; Neutrophils # (auto) 9.67 K/uL (1.40-6.50)
[2023-05-22] MEDS ORDERED: OPTIRAY 320 500ml IV ONE (19:04)
--- NOTE | 2023-05-22 19:09 | Emergency Department Note ---
Impression & Plan Small bowel obstruction, Abdominal pain ED Provider Note NAME: CHRISSIE BRODY AGE: 77 SEX: F : 1945 ARRIVES VIA: Walk-In INFORMANT: Patient ED PROVIDER(S): Bubba Palma DO CHIEF COMPLAINT: abdominal pain HPI: Patient is a 77-year-old female who presents to the ER for abdominal pain. She notes this feels like her previous bowel obstructions. Does have a history of diabetes and IBS as well as dyslipidemia. IV was established blood work is obtained. Labs show no significant leukocytosis or anemia. BMP along with LFTs bilirubin and troponin was negative. Lipase was unremarkable. Patient notes that any movement makes the pain worse. Has had a small bowel movement within the past 24 hours. ADDITIONAL HISTORY OBTAINED: Per HPI Chronic Medical/Social Conditions Affecting Care: Per HPI PAST MEDICAL HISTORY:See Below PAST SURGICAL HISTORY:See Below FAMILY HISTORY:See Below SOCIAL HISTORY:See Below HOME MEDICATIONS:See Below ALLERGIES:See Below VITALS:See Below PHYSICAL EXAMINATION: GENERAL: Sitting up in bed, alert, moderate distress holding her abdomen EYE EXAM: normal conjunctiva. OROPHARYNX: mucous membranes are moist NECK: supple, no nuchal rigidity, no adenopathy, non-tender LUNGS: Clear to auscultation. Normal chest wall mechanics HEART: no murmurs, S1 normal and S2 normal ABDOMEN: abdomen soft, periumbilical abdominal pain, normo-active bowel sounds, no masses, no rebound or guarding. UPPER EXTREMITIES: upper extremities are grossly normal. LOWER EXTREMITIES: No pitting edema. NEURO EXAM: Normal sensorium, cranial nerves II-XII grossly intact, normal speech, no gross weakness of arms, no gross weakness of legs. MEDICAL DECISION MAKING: Patient is a 77-year-old female who presents ER for above-stated complaint. IV was established blood work was obtained. Patient was given IV fluids, morphine and Zofran. CT abdomen pelvis shows no significant leukocytosis or anemia. BMP along with LFTs bilirubin and lipase was unremarkable. Initial lactate was slightly elevated. Troponin was negative. CT abdomen pelvis shows a closed- loop bowel obstruction. This was discussed to me via stat rad and there were concern for a closed-loop obstruction. Did discuss with Abhishek in regards to these findings who is on-call for general surgery general surgery who evaluated the patient recommended admission to the hospitalist. Discussed with Dr. El Huynh for further evaluation. Updated patient at bedside. She was resting comfortably. UA was contaminated. Consults/Care Managements Discussions: Per MDM Triage Nursing notes reviewed. Limited review of prior medical records performed Vital Signs: reviewed and remarkable for no significant abnormalities Differential diagnosis: Differential diagnoses includes but is not limited to gastritis, peptic ulcer disease, GERD, gallbladder disease, pancreatitis, small bowel obstruction, appendicitis, diverticulitis, hernia, urinary tract infection, torsion, perforation, trauma, infectious. ER treatment provided: See below Diagnostics interpreted by me include EKG and cardiac monitoring as listed below: -Cardiac Monitoring: An order was placed for continuous cardiac monitoring. The monitor shows a rate of 70 with sinus rhythm. -ECG: Sinus rhythm rate of 45 Normal axis Septal Q waves QTc 413 -Laboratory studies:Interpreted by me as stated above in MDM and shown below. Imaging studies: Xrays: As interpreted by me:none CTs show: CT abdomen pelvis per my preliminary interpretation showed dilated loops of small bowel CT abdomen pelvis per radiology showed closed-loop bowel obstruction Procedures:none Critical Care: None Past Med/Surg History Medical History Presbylarynges History of colon polyps Anxiety Type 2 diabetes mellitus diet controlled C. difficile colitis hx in 2018 no issues Varicose veins of both lower extremities Vitamin D deficiency Partial small bowel obstruction hx- medically tx Osteoporosis Treated with Reclast 2011, 2017, 2019 Nontoxic multinodular goiter Dyslipidemia Breast cancer hx Right IBS (irritable bowel syndrome) Surgical History History of colonoscopy Hx of lumpectomy 2007, Right, s/p radiation History of surgery cystocele repair Hx of tonsillectomy H/O: hemorrhoidectomy History of appendectomy Family History Aunt Breast cancer Brother Diabetes Lung cancer Mother Cardiac disorder Brother Diabetes Parkinsons disease Brother Diabetes Denies family history of Ovarian cancer Prostate cancer Myocardial infarction Colorectal cancer Social History Smoking Status: Never smoker Second Hand Exposure: No; Do You Dip or Chew Tobacco: No; Tobacco Cessation Education Requested by Patient: No Hx Alcohol Use: No Hx Substance Use: No Preferred Language: Kinyarwanda Communication Ability: Effective Visual Impairment: No Limitations Hearing Ability: Hard of Hearing Landing Worker Required: No Beliefs That Will Affect Care: None marital status: marital status details: two children Current Living Situation: Spouse Current Living Situation Comment: lives with and daughter current occupational status: retired 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 Other Information That Helps Us Care for You: No Feels Safe at Home: Yes Safety Concerns: Feels Safe At This Time Childhood Exposure to Second-Hand Smoke: Yes Diet: regular caffeine: Yes Dental Care, Regularly: Yes Physical Activity Frequency: Daily Seatbelt Use: always Sunscreen Use: No Assistive Devices: Glasses Allergies Allergies Allergy/AdvReac Type Severity Reaction Status Date / Time Penicillins Allergy Unknown SKIN Verified 05/22/23 21:27 IRRITATION>"HARD A ROCK" 47 YEARS AGO cephalexin AdvReac Mild Diarrhea Verified 05/22/23 21:27 Home Meds Home Medications Medication Instructions Recorded Confirmed vitamin B complex (B 1 tab PO QAM 04/27/20 05/22/23 Complex-Vitamin B12 tablet) calcium carbonate 600 mg calcium 600 mg PO QAM 03/31/21 05/22/23 (1,500 mg) tablet (Calcium) multivitamin (Daily Multi-Vitamin 1 tab PO QAM 03/31/21 05/22/23 tablet) Previous Rx's Medication Instructions Recorded hyoscyamine sulfate 0.125 mg tablet 0.125 mg PO QID PRN Diarrhea #60 09/05/22 tabs Results & Data (ED) Vital Signs Vital Signs - 24 hr 05/22/23 15:37 05/22/23 17:24 05/22/23 20:34 Temperature 36.7 C Temperature Source Temporal Artery Scan Pulse Rate 56 L 88 Pulse Rate [Right Finger] 48 L Respiratory Rate 20 22 Respiratory Effort / Characteristics Non-Labored Spontaneous Respiratory Depth Normal Blood Pressure 166/97 H Blood Pressure [Right Arm] 125/77 Blood Pressure Mean 120 Blood Pressure Mean [Right Arm] 93 Blood Pressure Position Sitting Pulse Oximetry 95 99 Oxygen Delivery Method Room Air Sepsis Recent Fever Within 48 Hours No Sepsis New/Unexplained Change in Mental Status No Sepsis Action Taken by Nursing No Action Required 05/22/23 20:35 05/22/23 20:40 05/22/23 21:17 Temperature Temperature Source Pulse Rate Pulse Rate [Right Finger] 50 L 54 L Respiratory Rate 18 18 Respiratory Effort / Characteristics Non-Labored Respiratory Depth Normal Blood Pressure Blood Pressure [Right Arm] 195/121 H 163/75 H Blood Pressure Mean Blood Pressure Mean [Right Arm] 145 104 Blood Pressure Position Pulse Oximetry 98 95 Oxygen Delivery Method Room Air Room Air Room Air Sepsis Recent Fever Within 48 Hours Sepsis New/Unexplained Change in Mental Status Sepsis Action Taken by Nursing Laboratory Data 05/22/23 17:28 05/22/23 17:28 Lab Results 05/22/23 05/22/23 Range/Units 17:28 20:47 WBC 10.51 (4.8-10.8) K/ul RBC 4.80 (4.20-5.40) M/uL Hgb 14.2 (12.0-16.0) g/dl Hct 43.4 (37.0-47.0) % MCV 90.4 (80.0-100.0) fL MCH 29.6 (25.0-34.0) pg MCHC 32.7 (32.0-36.0) g/dL RDW Std Deviation 43.2 (36.4-46.3) fL RDW Coeff of Henny 13.1 (11.5-14.5) % Plt Count 269 (130-400) K/uL MPV 10.9 (9.4-12.4) fL Immature Gran % (Auto) 0.9 % Neut % (Auto) 92.0 % Lymph % (Auto) 3.1 % Karnes % (Auto) 3.8 % Eos % (Auto) 0.0 % Baso % (Auto) 0.2 % Neut # (Auto) 9.67 H (1.40-6.50) K/uL Lymph # (Auto) 0.33 L (1.20-3.40) K/uL Karnes # (Auto) 0.40 (0.11-0.59) K/uL Eos # (Auto) 0.00 (0.00-0.50) K/uL Baso # (Auto) 0.02 (0.00-0.20) K/uL Immature Gran # (Auto) 0.09 (0.01-0.20) K/uL Sodium 138 (136-145) mmol/L Potassium 3.8 (3.5-5.1) mmol/L Chloride 101 (98-107) mmol/L Carbon Dioxide 25 (21-32) mmol/L Anion Gap 12 H (3-11) BUN 14 (6-23) mg/dl Creatinine 0.54 L (0.6-1.2) mg/dl Est Cr Clr Drug Dosing Not Reportable Est GFR ( Amer) 106.2 ml/min Est GFR (Non-Af Amer) 91.7 ml/min BUN/Creatinine Ratio 25.9 H (10-20) Glucose 160 H (70-99(Fasting)) mg/dl Lactate 2.5 H* (0.4-2.0) mmol/L Calcium 9.1 (8.6-10.3) mg/dl Total Bilirubin 0.8 (0.2-1.0) mg/dl AST 15 (13-39) U/L ALT 10 (7-52) U/L Alkaline Phosphatase 96 (34-104) U/L Troponin I High Sens 4.3 (0-14) pg/ml Total Protein 6.7 (6.0-8.3) gm/dl Albumin 3.9 (3.4-5.0) gm/dl Globulin 2.8 (2.5-4.0) gm/dl Albumin/Globulin Ratio 1.4 (0.9-2) Lipase 35 (11-82) U/L Administered Medications Discontinued Medications Sodium Chloride (Nss) 1,000 mls @ 999 mls/hr IV .Q1H1M RAMYA Stop: 05/22/23 16:39 Last Infusion: 05/22/23 18:26 Dose: Infused Documented By: Admin: 05/22/23 17:26 Dose: 999 mls/hr Documented By: ANGIE Sodium Chloride (Nss) 1,000 mls @ 999 mls/hr IV .Q1H1M RAMYA Stop: 05/22/23 22:30 Last Infusion: 05/22/23 22:23 Dose: Infused Documented By: Admin: 05/22/23 21:23 Dose: Not Given Documented By: Admin: 05/22/23 21:06 Dose: 999 mls/hr Documented By: REY Ioversol (Optiray 320 500ml) 89 ml IV ONCE ONE Stop: 05/22/23 19:05 Last Admin: 05/22/23 19:05 Dose: 89 ml Documented By: HEATHER Morphine Sulfate (Morphine Sulfate 2 Mg/Ml Carp) 2 mg IV NOW STA Stop: 05/22/23 15:39 Last Admin: 05/22/23 21:04 Dose: Not Given Documented By: REY Morphine Sulfate (Morphine Sulfate 10 Mg/Ml Carp/Vial) 6 mg IV NOW STA Stop: 05/22/23 20:29 Last Admin: 05/22/23 21:04 Dose: Not Given Documented By: REY Ondansetron HCl (Ondansetron Inj 2 Mg/Ml 2 Ml Vial) 4 mg IV NOW STA Stop: 05/22/23 15:39 Last Admin: 05/22/23 17:26 Dose: 4 mg Documented By: ARABELLAW Ondansetron HCl (Ondansetron Inj 2 Mg/Ml 2 Ml Vial) 4 mg IV NOW STA Stop: 05/22/23 20:29 Last Admin: 05/22/23 22:52 Dose: Not Given Documented By: REY Imaging Data Radiologist's Impression: Abdomen/Pelvis CT 05/22/23 15:39 CR Exam(s): CT ABDOMEN + PELVIS With Contrast IV Amt: 89 ml optiray 320 EXAM: CT Abdomen and Pelvis With Intravenous Contrast CLINICAL HISTORY: Pain. TECHNIQUE: Axial computed tomography images of the abdomen and pelvis with intravenous contrast. CTDI is 17.72 mGy and DLP is 790.74 mGy-cm. Automated exposure control was utilized for the study. A dose lowering technique was utilized adhering to the principles of ALARA. CONTRAST: Patient received 89 ml optiray 320 of IV contrast COMPARISON: No relevant prior studies available. FINDINGS: Lung bases: Unremarkable. No mass. No consolidation. ABDOMEN: Liver: Unremarkable. No mass. Gallbladder and bile ducts: Mildly dilated common bile duct measuring 0.7 cm and dilated pancreatic duct measuring 0.6 cm. "Double duct sign ". This is concerning for an occult ampullary lesion. Cholelithiasis. Pancreas: See above. Spleen: Unremarkable. No splenomegaly. Adrenals: Unremarkable. No mass. Kidneys and ureters: Unremarkable. No solid mass. No hydronephrosis. Stomach and bowel: Small bowel obstruction with a transition point in the mid abdomen. There is significant fluid in the adjacent mesentery of the loop of bowel in the mid abdomen, this is concerning for a portion of the instruction to be a closed loop. Cannot exclude early ischemia. No mucosal thickening. PELVIS: Appendix: No findings to suggest acute appendicitis. Bladder: Unremarkable. No mass. Reproductive: Unremarkable as visualized. ABDOMEN and PELVIS: Intraperitoneal space: Unremarkable. No free air. No significant fluid collection. Bones/joints: There are degenerative changes of the spine. No acute fracture. No dislocation. Soft tissues: Unremarkable. Vasculature: Mild atherosclerosis. No abdominal aortic aneurysm. Lymph nodes: Unremarkable. No enlarged lymph nodes. IMPRESSION: 1. Small bowel obstruction with a transition point in the mid abdomen. There is significant fluid in the adjacent mesentery of the loop of bowel in the mid abdomen which appears to be confined to a loop, this is concerning for a portion of the obstruction to be a closed loop. Cannot exclude early ischemia. Surgical consult is recommended. 2. Cholelithiasis. 3. Mildly dilated common bile duct measuring 0.7 cm and dilated pancreatic duct measuring 0.6 cm. "Double duct sign ". This is concerning for an occult ampullary lesion. 4. Cholelithiasis. Communications: Call Doctor Above results Electronically signed by: Mariam Adams MD 05/22/23 20:16 PM Discharge Plan Visit Data Chief Complaint: Abdominal Pain Stated Complaint: NAUSEA AND VOMITING, ABD PAIN ED Provider: Bubba Palma Discharge Problem: Small bowel obstruction, Abdominal pain Patient Disposition: Admitted As Inpatient Discharge Instructions Interventions: ED Discharge Assessment Last Done: 05/22/23 23:06 Discharge Problem: Abdominal pain Qualifiers: Abdominal location: unspecified location Qualified Code(s): R10.9 - Unspecified abdominal pain
--- NOTE | 2023-05-22 20:17 | CT Scan Report ---
Exam(s): CT ABDOMEN + PELVIS With Contrast IV Amt: 89 ml optiray 320 EXAM: CT Abdomen and Pelvis With Intravenous Contrast CLINICAL HISTORY: Pain. TECHNIQUE: Axial computed tomography images of the abdomen and pelvis with intravenous contrast. CTDI is 17.72 mGy and DLP is 790.74 mGy-cm. Automated exposure control was utilized for the study. A dose lowering technique was utilized adhering to the principles of ALARA. CONTRAST: Patient received 89 ml optiray 320 of IV contrast COMPARISON: No relevant prior studies available. FINDINGS: Lung bases: Unremarkable. No mass. No consolidation. ABDOMEN: Liver: Unremarkable. No mass. Gallbladder and bile ducts: Mildly dilated common bile duct measuring 0.7 cm and dilated pancreatic duct measuring 0.6 cm. "Double duct sign ". This is concerning for an occult ampullary lesion. Cholelithiasis. Pancreas: See above. Spleen: Unremarkable. No splenomegaly. Adrenals: Unremarkable. No mass. Kidneys and ureters: Unremarkable. No solid mass. No hydronephrosis. Stomach and bowel: Small bowel obstruction with a transition point in the mid abdomen. There is significant fluid in the adjacent mesentery of the loop of bowel in the mid abdomen, this is concerning for a portion of the instruction to be a closed loop. Cannot exclude early ischemia. No mucosal thickening. PELVIS: Appendix: No findings to suggest acute appendicitis. Bladder: Unremarkable. No mass. Reproductive: Unremarkable as visualized. ABDOMEN and PELVIS: Intraperitoneal space: Unremarkable. No free air. No significant fluid collection. Bones/joints: There are degenerative changes of the spine. No acute fracture. No dislocation. Soft tissues: Unremarkable. Vasculature: Mild atherosclerosis. No abdominal aortic aneurysm. Lymph nodes: Unremarkable. No enlarged lymph nodes. IMPRESSION: 1. Small bowel obstruction with a transition point in the mid abdomen. There is significant fluid in the adjacent mesentery of the loop of bowel in the mid abdomen which appears to be confined to a loop, this is concerning for a portion of the obstruction to be a closed loop. Cannot exclude early ischemia. Surgical consult is recommended. 2. Cholelithiasis. 3. Mildly dilated common bile duct measuring 0.7 cm and dilated pancreatic duct measuring 0.6 cm. "Double duct sign ". This is concerning for an occult ampullary lesion. 4. Cholelithiasis. Communications: Call Doctor Above results Electronically signed by: Mariam Adams MD 05/22/23 20:16 PM
[2023-05-22] MEDS ORDERED: MoRPHine SULFATE 10 MG/ML CARP/VIAL IV STA (20:28)
--- NOTE | 2023-05-22 20:54 | Surgery Consultation ---
Date of Consultation May 22, 2023 Assessment & Plan (1) Small bowel obstruction: I discussed with the treating emergency room physician and the patient is being admitted on the hospitalist service. We recommend proceeding as follows: Implement n.p.o. status At the present time the patient's abdomen is entirely benign and nondistended. She also does not have any current nausea and has not had any emesis in nearly 6 hours. I therefore we can hold on the modality of an NG tube. I did discuss with the patient that if her abdominal exam worsens, she clinically deteriorates, or she begins having emesis we will need to rethink the use of an NG tube. She expressed her understanding and agreed. IV fluids to be provided for hydration Analgesics to be provided Antiemetics to be provided Serial labs to be followed Will follow serial clinical exams As noted there is concern for potential closed-loop obstruction on the patient's CT scan. I do, however not feel she needs emergent surgical intervention at this time as she does not have leukocytosis or acute kidney injury. She also has little in the way of abdominal pain at this time and she is noted to be hemodynamically stable without tachycardia or fever. I therefore think a trial of conservative management is warranted as noted above. However, as the interpreting radiologist could not exclude ischemia on available imaging I will check a lactic acid level. This is currently pending. Additional recommendations were forthcoming based on her clinical course as it unfolds Lactic acid level came back with slight elevation at 2.5. Will resuscitate with intravenous fluids as noted above with plans to repeat lactic acid level later this evening Supervising Physician Co-Signing Physician Notes d/w HALEY Rajput, labs and imaging reviewed, agree with above. Recurrent SBO, some mesenteric edema, CT read concerned for possible closed loop. Patient exam benign, wbc normal, lactate mild elevation but was vomiting earlier and labs somewhat concentrated. Will treat non operatively for now, no ng as patient not vomiting. History of Present Illness Reason for Consultation: Small bowel obstruction History of Present Illness This is a 77-year-old female who presented to the emergency department secondary to abdominal pain. Patient notes that she was in her usual state of health feeling perfectly fine last evening however this morning (05/22/2023) she woke up with some generalized abdominal pain that she describes as a bandlike pressure across her upper abdomen. She has had a small bowel obstruction the past and it presented in a similar fashion to this. Patient denies any fevers, shakes, or chills. She says she had a small bowel movement today and due to the sensation she was feeling she gave herself a fleets enema which did not improve her symptoms. Since her pain began she is passing very little in the way of flatus. Patient did have 1 episode of emesis at approximately 3:00 PM today has not had any since. She currently does not feel nauseated. As noted she has had a small bowel obstruction in the past she believes 5 to 6 years ago and was treated successfully in a conservative management. She has had prior abdominal surgery in the form of an appendectomy Since arrival to the hospital the patient has had labs and imaging which I independent reviewed. A CT scan of the abdomen pelvis showed the patient had findings concerning for small bowel obstruction with a transition point in the mid abdomen. There is fluid in the adjacent mesentery of the affected loop of small bowel and the interpreting radiologist could not exclude that a portion of the obstruction was closed-loop. Early ischemia could not be excluded. Also of note the patient was noted to have a dilated common bile duct and a dilated pancreatic duct raising the concern for potential occult ampulla lesion. Labs i ncluded CBC her white blood cell count, hemoglobin, hematocrit, platelet count were all normal. Chemistry profile showed sodium and potassium were normal. BUN was normal and creatinine was nonelevated at 0.5. There is no elevation of patient's LFTs or lipase. EKG showed sinus bradycardia. There not appear to be any changes indicative of acute ischemia At the time of my interview the patient was resting comfortably in bed and she was in no distress Allergies Allergy/AdvReac Type Severity Reaction Status Date / Time Penicillins Allergy Unknown SKIN Verified 05/22/23 21:27 IRRITATION>"HARD A ROCK" 47 YEARS AGO cephalexin AdvReac Mild Diarrhea Verified 05/22/23 21:27 Home Medications Medication Instructions Recorded Confirmed Type vitamin B complex (B 1 tab PO QAM 04/27/20 05/22/23 History Complex-Vitamin B12 tablet) calcium carbonate 600 mg calcium 600 mg PO QAM 03/31/21 05/22/23 History (1,500 mg) tablet (Calcium) multivitamin (Daily Multi-Vitamin 1 tab PO QAM 11/12/21 01/03/24 History tablet) hyoscyamine sulfate 0.125 mg tablet 0.125 mg PO QID PRN Diarrhea #60 09/05/22 05/22/23 Rx tabs Patient History Medical History Presbylarynges History of colon polyps Anxiety Type 2 diabetes mellitus diet controlled C. difficile colitis hx in 2018 no issues Varicose veins of both lower extremities Vitamin D deficiency Partial small bowel obstruction hx- medically tx Osteoporosis Treated with Reclast 2011, 2017, 2018 Nontoxic multinodular goiter Dyslipidemia Breast cancer hx Right IBS (irritable bowel syndrome) Surgical History History of colonoscopy Hx of lumpectomy 2007, Right, s/p radiation History of surgery cystocele repair Hx of tonsillectomy H/O: hemorrhoidectomy History of appendectomy Family History Aunt Breast cancer Brother Diabetes Lung cancer Mother Cardiac disorder Brother Diabetes Parkinsons disease Brother Diabetes Denies family history of Ovarian cancer Prostate cancer Myocardial infarction Colorectal cancer Social History Smoking Status: Never smoker Second Hand Exposure: No; Do You Dip or Chew Tobacco: No; Hx Alcohol Use: No Hx Substance Use: No Preferred Language: Kyrgyz Communication Ability: Effective Visual Impairment: No Limitations Hearing Ability: Hard of Hearing Ship/Rec/Doc Control Required: No Beliefs That Will Affect Care: None marital status: marital status details: two children Current Living Situation: Spouse and Family Current Living Situation Comment: lives with and daughter current occupational status: retired 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 Feels Safe at Home: Yes Childhood Exposure to Second-Hand Smoke: Yes Diet: regular caffeine: Yes Dental Care, Regularly: Yes Physical Activity Frequency: Daily Seatbelt Use: always Sunscreen Use: No Assistive Devices: Glasses Review of Systems Constitutional: no fever and no chills Eyes: + corrective lenses Ear, Nose, Mouth, Throat: no ear pain Respiratory: no cough Cardiovascular: no chest pain Gastrointestinal: as per Subjective / HPI Genitourinary: no dysuria Musculoskeletal: no back pain Integumentary: no rash Neurologic: no localized weakness Physical Exam Constitutional: WD/WN, vitals as above Eyes: Wears glasses ENMT: Ears: no hearing impairment Neck: trachea midline Respiratory: normal respiratory effort, lungs clear to auscultation normal respiratory effort and + respiratory distress Cardiovascular: Rate/Rhythm: regular rate and regular rhythm Vessels: dorsalis pedis pulses present and radial pulses present Gastrointestinal (Abdomen): At the time of my exam the patient's abdomen was soft and nondistended. It is nonrigid. Bowel sounds are present. There is minimal pain at the time of my exam. There is no rebound tenderness or guarding. Musculoskeletal: No calf tenderness Skin: no rashes Neurologic: moves all extremities Psychiatric: A+Ox3, euthymic affect Results & Data Vital Signs (Past 12 Hours) Vital Signs Temp Pulse Pulse Resp BP BP Pulse Ox 05/22/23 20:40 05/22/23 20:35 50 L 18 195/121 H 98 05/22/23 20:34 88 05/22/23 17:24 48 L 22 125/77 99 05/22/23 15:37 36.7 C 56 L 20 166/97 H 95 O2 Del Method 05/22/23 20:40 Room Air 05/22/23 20:35 Room Air 05/22/23 20:34 05/22/23 17:24 05/22/23 15:37 Room Air PG Care Time/CCT Total # of Minutes Spent Total Time Spent with Patient: Total time spent is greater than 50% in coordination of care (as documented) at patient's floor/unit and/or counseling patient: Coding Level of Care Code 54907 INT INP/OBS CARE 3/75MIN Diagnoses Small bowel obstruction K56.609
[2023-05-22] MEDS: SODIUM CHLORIDE 0.9% 1,000 ML IV SCH ×2 (21:06→21:23)
[2023-05-22] MEDS ORDERED: ACETAMINOPHEN 1,000 MG/100 ML VIAL IV PRN (21:48)
[2023-05-22] MEDS ORDERED: KETOROLAC TROMETHAMINE 15 MG/ML VIAL IV PRN (21:48)
--- NOTE | 2023-05-22 21:52 | History & Physical Report ---
Date of Service May 22, 2023 Assessment & Plan (1) Small bowel obstruction: (2) Idiopathic polyneuropathy: (3) Mild obstructive sleep apnea: (4) Type 2 diabetes mellitus: (5) Anxiety: Plan Small bowel obstruction- History of previous with similar symptoms N.p.o. Zosyn 4.5 g IV every 6 hours as needed Zofran 4 mg IV every 6 hours as needed Pantoprazole 40 mg IV daily Cipro 400 mg IV every 12 hours Flagyl 500 mg IV every 8 hours NSS + KCl 20 MEQ's at 80 mL/h Acetaminophen 1 g IV every 8 hours as needed for mild pain or fever Toradol 15 mg IV every 6 hours as needed for moderate pain Morphine sulfate 2 mg IV every 3 hours as needed for severe pain Consult general surgery, who is seen patient in the ED Double duct sign/dilated common bile duct and pancreatic duct- Will need gastroenterology consult for possible ERCP/endoscopic ultrasound vs MRCP History of Present Illness Chief Complaint: The patient presents to the emergency department with recurrence of abdominal pain and no bowel movement for 24 hours, similar to previous episodes of bowel obstructions Primary Care Provider: Nicky Roman MD The patient is a 77-year-old female with past medical history of recurrent small bowel obstructions, idiopathic polyneuropathy, mild SAUD, insomnia, diabetes mellitus type 2, vitamin D deficiency, nontoxic multinodular goiter, dyslipidemia and IBS. She presents emergency department as above, with recurrence of symptoms similar to previous bowel obstructions. CT scan of abdomen and pelvis is consistent with small bowel obstruction with transition point in the mid abdomen. There is mildly dilated common bile duct and pancreatic duct consistent with double duct sign. Allergies Allergy/AdvReac Type Severity Reaction Status Date / Time Penicillins Allergy Unknown SKIN Verified 05/22/23 21:27 IRRITATION>"[place]" 47 YEARS AGO cephalexin AdvReac Mild Diarrhea Verified 05/22/23 21:27 Home Medications Medication Instructions Recorded Confirmed Type vitamin B complex (B 1 tab PO QAM 04/27/20 05/22/23 History Complex-Vitamin B12 tablet) calcium carbonate 600 mg calcium 600 mg PO QAM 03/31/21 05/22/23 History (1,500 mg) tablet (Calcium) multivitamin (Daily Multi-Vitamin 1 tab PO QAM 03/31/21 05/22/23 History tablet) hyoscyamine sulfate 0.125 mg tablet 0.125 mg PO QID PRN Diarrhea #60 09/05/22 05/22/23 Rx tabs Past Med/Surg History Medical History Presbylarynges History of colon polyps Anxiety Type 2 diabetes mellitus diet controlled C. difficile colitis hx in 2018 no issues Varicose veins of both lower extremities Vitamin D deficiency Partial small bowel obstruction hx- medically tx Osteoporosis Treated with Reclast 2011, 2017, 2018 Nontoxic multinodular goiter Dyslipidemia Breast cancer hx Right IBS (irritable bowel syndrome) Surgical History History of colonoscopy Hx of lumpectomy 2007, Right, s/p radiation History of surgery cystocele repair Hx of tonsillectomy H/O: hemorrhoidectomy History of appendectomy Family History Aunt Breast cancer Brother Diabetes Lung cancer Mother Cardiac disorder Brother Diabetes Parkinsons disease Brother Diabetes Denies family history of Ovarian cancer Prostate cancer Myocardial infarction Colorectal cancer Social History Smoking Status: Never smoker Second Hand Exposure: No; Do You Dip or Chew Tobacco: No; Hx Alcohol Use: No Hx Substance Use: No Preferred Language: Romansh Communication Ability: Effective Visual Impairment: No Limitations Hearing Ability: Hard of Hearing 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 Tubing Required: No Beliefs That Will Affect Care: None marital status: marital status details: two children Current Living Situation: Spouse and Family Current Living Situation Comment: lives with and daughter current occupational status: retired 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 Feels Safe at Home: Yes Childhood Exposure to Second-Hand Smoke: Yes Diet: regular caffeine: Yes Dental Care, Regularly: Yes Physical Activity Frequency: Daily Seatbelt Use: always Sunscreen Use: No Assistive Devices: Glasses Review of Systems Review of Systems: The patient denies chest pain, palpitations, shortness of breath, dyspnea on exertion, cough, lower extremity swelling, sore throat, fevers, chills, sweats, vomiting, blood in urine or stool, dysuria, urinary frequency or urgency, lightheadedness, dizziness, headache, memory loss, loss of consciousness, rash, abnormal bruising or bleeding, imbalance, focal or generalized weakness, numbness or tingling in arms or legs, generalized arthralgias or myalgias, back or neck pain, or night sweats. The review of systems is otherwise negative other than for that already noted above, and at least 10 systems have been reviewed. Physical Exam Physical Exam: The patient is awake, alert and oriented 3, well developed and well nourished, normocephalic and atraumatic, lying in bed and in no acute distress. HEENT--PERRL, EOMI, mucous membranes and oropharynx dry. Neck--supple. No JVD. No bruits. Thyroid normal, trachea midline, no adenopathy. Heart--normal S1 and S2. No murmurs, rubs or gallops. Lungs--clear bilaterally, no respiratory distress, no accessory muscle use. Abdomen--high-pitched bowel signs. Soft, nondistended. Generalized mild tenderness Extremities--no cyanosis or clubbing. No edema. Dermatologic--normal skin turgor, normal color, no abnormal lymph nodes, no rash. Neurologic--cranial nerves II through XII grossly intact. Rheumatologic--normal range of motion. Psychiatric--normal affect. Results & Data Results & Data Vital Signs (Past 12 Hours) Vital Signs Temp Pulse Pulse Resp BP BP Pulse Ox 05/22/23 21:17 54 L 18 163/75 H 95 05/22/23 20:40 05/22/23 20:35 50 L 18 195/121 H 98 05/22/23 20:34 88 05/22/23 17:24 48 L 22 125/77 99 05/22/23 15:37 36.7 C 56 L 20 166/97 H 95 O2 Del Method 05/22/23 21:17 Room Air 05/22/23 20:40 Room Air 05/22/23 20:35 Room Air 05/22/23 20:34 05/22/23 17:24 05/22/23 15:37 Room Air Laboratory Results Laboratory Results WBC 10.51 K/ul (4.8-10.8) 05/22/23 17:28 RBC 4.80 M/uL (4.20-5.40) 05/22/23 17:28 Hgb 14.2 g/dl (12.0-16.0) 05/22/23 17: Hct 43.4 % (37.0-47.0) 05/22/23 17: MCV 90.4 fL (80.0-100.0) 05/22/23 17: MCH 29.6 pg (25.0-34.0) 05/22/23 17: MCHC 32.7 g/dL (32.0-36.0) 05/22/23 17: RDW Std Deviation 43.2 fL (36.4-46.3) 05/22/23: RDW Coeff of Henny 13.1 % (11.5-14.5) 05/22/23: Plt Count 269 K/uL (130-400) 05/22/23: MPV 10.9 fL (9.4-12.4) 05/22/23 17: Immature Gran % (Auto) 0.9 % 05/22/23 17: Neut % (Auto) 92.0 % 05/22/23 17:28 Lymph % (Auto) 3.1 % 05/22/23 17:28 [place] % (Auto) 3.8 % 05/22/23 17: Eos % (Auto) 0.0 % 05/22/23 17: Baso % (Auto) 0.2 % 05/22/23: Neut # (Auto) 9.67 K/uL (1.40-6.50) H 05/22/23: Lymph # (Auto) 0.33 K/uL (1.20-3.40) L 05/22/23 17:28 [place] # (Auto) 0.40 K/uL (0.11-0.59) 05/22/23 17: Eos # (Auto) 0.00 K/uL (0.00-0.50) 05/22/23 17: Baso # (Auto) 0.02 K/uL (0.00-0.20) 05/22/23 17: Immature Gran # (Auto) 0.09 K/uL (0.01-0.20) 05/22/23 17: Sodium 138 mmol/L (136-145) 05/22/23 17:28 Potassium 3.8 mmol/L (3.5-5.1) 05/22/23 17:28 Chloride 101 mmol/L (98-107) 05/22/23 17:28 Carbon Dioxide 25 mmol/L (21-32) 05/22/23 17:28 Anion Gap 12 (3-11) H 05/22/23 17:28 BUN 14 mg/dl (6-23) 05/22/23 17:28 Creatinine 0.54 mg/dl (0.6-1.2) L 05/22/23 17:28 Est Cr Clr Drug Dosing Not Reportable 05/22/23 17:28 Est GFR ( Amer) 106.2 ml/min 05/22/23 17:28 Est GFR (Non-Af Amer) 91.7 ml/min 05/22/23 17:28 BUN/Creatinine Ratio 25.9 (10-20) H 05/22/23 17:28 Glucose 160 mg/dl (70-99(Fasting)) H 05/22/23 17:28 Lactate 2.5 mmol/L (0.4-2.0) H* 05/22/23 20:47 Calcium 9.1 mg/dl (8.6-10.3) 05/22/23 17:28 Total Bilirubin 0.8 mg/dl (0.2-1.0) 05/22/23 17:28 AST 15 U/L (13-39) 05/22/23 17:28 ALT 10 U/L (7-52) 05/22/23 17:28 Alkaline Phosphatase 96 U/L (34-104) 05/22/23 17:28 Troponin I High Sens 4.3 pg/ml (0-14) 05/22/23 17:28 Total Protein 6.7 gm/dl (6.0-8.3) 05/22/23 17:28 Albumin 3.9 gm/dl (3.4-5.0) 05/22/23 17:28 Globulin 2.8 gm/dl (2.5-4.0) 05/22/23 17:28 Albumin/Globulin Ratio 1.4 (0.9-2) 05/22/23 17:28 Lipase 35 U/L (11-82) 05/22/23 17:28 Impressions Abdomen/Pelvis CT 05/22/23 15:39 CR Exam(s): CT ABDOMEN + PELVIS With Contrast IV Amt: 89 ml optiray 320 EXAM: CT Abdomen and Pelvis With Intravenous Contrast CLINICAL HISTORY: Pain. TECHNIQUE: Axial computed tomography images of the abdomen and pelvis with intravenous contrast. CTDI is 17.72 mGy and DLP is 790.74 mGy-cm. Automated exposure control was utilized for the study. A dose lowering technique was utilized adhering to the principles of ALARA. CONTRAST: Patient received 89 ml optiray 320 of IV contrast COMPARISON: No relevant prior studies available. FINDINGS: Lung bases: Unremarkable. No mass. No consolidation. ABDOMEN: Liver: Unremarkable. No mass. Gallbladder and bile ducts: Mildly dilated common bile duct measuring 0.7 cm and dilated pancreatic duct measuring 0.6 cm. "Double duct sign ". This is concerning for an occult ampullary lesion. Cholelithiasis. Pancreas: See above. Spleen: Unremarkable. No splenomegaly. Adrenals: Unremarkable. No mass. Kidneys and ureters: Unremarkable. No solid mass. No hydronephrosis. Stomach and bowel: Small bowel obstruction with a transition point in the mid abdomen. There is significant fluid in the adjacent mesentery of the loop of bowel in the mid abdomen, this is concerning for a portion of the instruction to be a closed loop. Cannot exclude early ischemia. No mucosal thickening. PELVIS: Appendix: No findings to suggest acute appendicitis. Bladder: Unremarkable. No mass. Reproductive: Unremarkable as visualized. ABDOMEN and PELVIS: Intraperitoneal space: Unremarkable. No free air. No significant fluid collection. Bones/joints: There are degenerative changes of the spine. No acute fracture. No dislocation. Soft tissues: Unremarkable. Vasculature: Mild atherosclerosis. No abdominal aortic aneurysm. Lymph nodes: Unremarkable. No enlarged lymph nodes. IMPRESSION: 1. Small bowel obstruction with a transition point in the mid abdomen. There is significant fluid in the adjacent mesentery of the loop of bowel in the mid abdomen which appears to be confined to a loop, this is concerning for a portion of the obstruction to be a closed loop. Cannot exclude early ischemia. Surgical consult is recommended. 2. Cholelithiasis. 3. Mildly dilated common bile duct measuring 0.7 cm and dilated pancreatic duct measuring 0.6 cm. "Double duct sign ". This is concerning for an occult ampullary lesion. 4. Cholelithiasis. Communications: Call Doctor Above results Electronically signed by: Mariam Adams MD 05/22/23 20:16 PM Code Status & VTE Plan Code Status Full code VTE Prophylaxis Plan VTE Prophylaxis will be ordered: Yes PG Care Time/CCT Total # of Minutes Spent Total Time Spent with Patient: Total time spent is greater than 50% in coordination of care (as documented) at patient's floor/unit and/or counseling patient: Coding Level of Care Code 52871 INT INP/OBS CARE 3/75MIN Diagnoses Small bowel obstruction K56.609 Idiopathic polyneuropathy G60.9 Mild obstructive sleep apnea G47.33 Type 2 diabetes mellitus E11.9 Anxiety F41.9
[2023-05-22] MEDS ORDERED: MoRPHine SULFATE 2 MG/ML CARP IV PRN (21:53)
[2023-05-22 23:44] LABS: Appearance Urine Clear (Clear); Bacteria Urine Automated 4+ (Negative); Bilirubin Urine Negative (Negative); Blood Urine Trace (Negative); Color Urine Yellow; Epithelial Cell Urine Auto >30 /lpf (0-5); Glucose Urine UA Negative (Negative); Ketones Urine Trace (Negative); Leukocyte Esterase Urine Negative (Negative); Nitrite Urine Positive (Negative); Protein Urine Negative (Negative); RBC Urine Automated 0-4 /hpf (0-4); Specific Gravity Urine > 1.045 (1.000-1.030); Urobilinogen Urine Negative (Negative)
[2023-05-23] MEDS ORDERED: CIPROFLOXACIN / D5W 400 MG/200 ML BAG IV SCH (01:00)
[2023-05-23] MEDS: metroNIDAZOLE 500 MG/100 ML BAG IV SCH ×2 (01:16→08:22)
[2023-05-23] MEDS: NSS + 20MEQ KCL 20 MEQ/1,000 ML BAG IV SCH ×2 (01:16→16:32)
[2023-05-23] MEDS ORDERED: ONDANSETRON INJ 2 MG/ML 2 ML VIAL IV PRN (04:43)
--- NOTE | 2023-05-23 08:20 | Surgery Progress Note ---
Date of Service May 23, 2023 Assessment & Plan (1) Small bowel obstruction: Plan: pt denies abdominal pain denies CP, SOB, Fever/chills, n/v Feeling much better than last night No flatus yet encouraged ambulation awaiting return of bowel function before starting diet AM labs not drawn yet VSS Admission and Anticipated Discharge Date Admission Date: May 22, 2023 Supervising Physician Co-Signing Physician Notes pnt S&E, agree with above. Admitted for SBO, pain improved, no nausea, denies flatus. on exam afvss, nad, abd soft, NT, mildly distended. Will continue non operative management with bowel rest, no ng for now. if begins to have return of bowel function, may start on clears. Subjective pt denies abdominal pain denies CP, SOB, Fever/chills, n/v Feeling much better than last night No flatus yet Review of Systems Constitutional: no fever, no chills and no fatigue Respiratory: no dyspnea Cardiovascular: no chest pain Gastrointestinal: no abdominal pain, no bloating, no nausea and no vomiting Genitourinary: no problem reported Physical Exam Physical Exam: alert oriented Constitutional: well developed, cooperative and comfortable; no acute distress Respiratory: normal respiratory effort and able to speak in complete sentences; no respiratory distress Cardiovascular: Rate/Rhythm: + bradycardic (56) Gastrointestinal (Abdomen): Inspection/Auscultation: abdomen not distended Percussion/Palpation: abdomen soft; abdomen nontender, no guarding, abdomen not rigid and no hernia Results & Data Vital Signs (Past 12 Hours) Vital Signs Temp Pulse Pulse Resp BP BP Pulse Ox 05/23/23 07:11 98.1 F 56 L 16 125/64 95 05/22/23 23:55 98.2 F 58 L 16 168/72 H 96 05/22/23 23:06 05/22/23 22:30 63 20 95 05/22/23 22:00 170/91 H 05/22/23 22:00 55 L 17 96 05/22/23 21:17 54 L 18 163/75 H 95 05/22/23 20:40 05/22/23 20:35 50 L 18 195/121 H 98 05/22/23 20:34 88 O2 Del Method 05/23/23 07:11 Room Air 01/03/24 23:55 Room Air 05/22/23 23:06 Room Air 05/22/23 22:30 Room Air 05/22/23 22:00 05/22/23 22:00 05/22/23 21:17 Room Air 05/22/23 20:40 Room Air 05/22/23 20:35 Room Air 05/22/23 20:34 PG Care Time/CCT Total # of Minutes Spent Total Time Spent with Patient: Total time spent is greater than 50% in coordination of care (as documented) at patient's floor/unit and/or counseling patient: Coding Level of Care Code 40873 SUB INP/OBS CARE 06/13MIN Diagnoses Small bowel obstruction K56.609
[2023-05-23] MEDS: PANTOprazole 40 MG in SYRINGE 0 ML IV SCH (11:45)
[2023-05-23 11:51] LABS: Albumin Globulin Ratio 1.4 (0.9-2); Albumin Level 3.2 gm/dl (3.4-5.0); BUN Creatinine Ratio 19.1 (10-20); Bilirubin,Total 0.7 mg/dl (0.2-1.0); Calcium 7.6 mg/dl (8.6-10.3); Creatinine Clr Calc Pharmacy 57.8 ml/min; Est GFR (African American) 98.5 ml/min; Globulin 2.3 gm/dl (2.5-4.0); Magnesium 1.8 mg/dl (1.7-2.4); Phosphorus 2.5 mg/dl (2.5-4.9); Potassium 3.6 mmol/L (3.5-5.1); Total Protein 5.5 gm/dl (6.0-8.3)
--- NOTE | 2023-05-23 11:53 | Gastrointestinal Consultation ---
Date of Consultation May 23, 2023 Assessment & Plan (1) Small bowel obstruction: (2) Abdominal pain: (3) Abnormal findings on imaging of biliary tract: Plan Discussed with Dr. Silva. Plan as follows: -NPO with diet advancement per general surgery. -Outpatient EUS is being arranged through [facility] for further evaluation of her biliary findings given history of breast CA. -Rest per primary team. -GI sign off. Please do not hesitate to contact us again if needed in the care of this patient. Thank you for allowing us to participate in the care of this patient. If you have any questions or concerns, please do not hesitate to contact us. Supervising Physician Co-Signing Physician Notes Agree with QUINTIN Isaacs as above Abd: Soft, NT, ND, +BS Continue current therapy and supportive care Outpatient EUS with [facility] History of Present Illness Reason for Consultation: SBO, abnormal CT Requesting Physician: Dr. Silva Attending Physician: Lorin Silva MD History of Present Illness Patient is a 77 y.o. female with a history of breast CA admitted with abdominal pain and imaging consistent with mid-abdomen small bowel obstruction. She has a history of SBO ~ 5 years ago as well. Since admission, she has been improving clinically. The abdominal pain has since resolved. No nausea or vomiting. She has been passing flatus and did have a bowel movement this morning. No fever or chills. She remains NPO with plan for dietary advancement per general surgery. Incidentally, she was found to have a "double duct sign" on CT imaging as follows: "Mildly dilated common bile duct measuring 0.7 cm and dilated pancreatic duct measuring 0.6 cm". Patient's liver panel is normal. Denies any jaundice, pruritus, dark urine, acholic stools, melena, hematochezia or fatigue. Allergies Allergy/AdvReac Type Severity Reaction Status Date / Time Penicillins Allergy Unknown SKIN Verified 05/22/23 21:27 IRRITATION>"HARD A ROCK" 47 YEARS AGO cephalexin AdvReac Mild Diarrhea Verified 05/22/23 21:27 Home Medications Medication Instructions Recorded Confirmed Type vitamin B complex (B 1 tab PO QAM 04/27/20 05/22/23 History Complex-Vitamin B12 tablet) calcium carbonate 600 mg calcium 600 mg PO QAM 03/31/21 05/22/23 History (1,500 mg) tablet (Calcium) multivitamin (Daily Multi-Vitamin 1 tab PO QAM 03/31/21 05/22/23 History tablet) hyoscyamine sulfate 0.125 mg tablet 0.125 mg PO QID PRN Diarrhea #60 09/05/22 05/22/23 Rx tabs Patient History Medical History Presbylarynges History of colon polyps Anxiety Type 2 diabetes mellitus diet controlled C. difficile colitis hx in 2018 no issues Varicose veins of both lower extremities Vitamin D deficiency Partial small bowel obstruction hx- medically tx Osteoporosis Treated with Reclast 2011, 2017, 2018 Nontoxic multinodular goiter Dyslipidemia Breast cancer hx Right IBS (irritable bowel syndrome) Surgical History History of colonoscopy Hx of lumpectomy 2007, Right, s/p radiation History of surgery cystocele repair Hx of tonsillectomy H/O: hemorrhoidectomy History of appendectomy Family History Aunt Breast cancer Brother Diabetes Lung cancer Mother Cardiac disorder Brother Diabetes Parkinsons disease Brother Diabetes Denies family history of Ovarian cancer Prostate cancer Myocardial infarction Colorectal cancer Social History Smoking Status: Never smoker Second Hand Exposure: No; Do You Dip or Chew Tobacco: No; Tobacco Cessation Education Requested by Patient: No Hx Alcohol Use: No Hx Substance Use: No Preferred Language: Wolof Communication Ability: Effective Visual Impairment: No Limitations Hearing Ability: Hard of Hearing Prosthetics Technician Required: No Beliefs That Will Affect Care: None marital status: marital status details: two children Current Living Situation: Spouse Current Living Situation Comment: lives with and daughter current occupational status: retired 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 Other Information That Helps Us Care for You: No Feels Safe at Home: Yes Safety Concerns: Feels Safe At This Time Childhood Exposure to Second-Hand Smoke: Yes Diet: regular caffeine: Yes Dental Care, Regularly: Yes Physical Activity Frequency: Daily Seatbelt Use: always Sunscreen Use: No Assistive Devices: None Review of Systems Constitutional: as per Subjective / HPI Respiratory: no problem reported Cardiovascular: no problem reported Gastrointestinal: as per Subjective / HPI Physical Exam Constitutional: WD/WN, vitals as above Respiratory: normal respiratory effort, lungs clear to auscultation Cardiovascular: Rate/Rhythm: regular rate and regular rhythm Gastrointestinal (Abdomen): Inspection/Auscultation: + abdomen distended and + hypoactive bowel sounds Percussion/Palpation: abdomen soft; abdomen nontender, no guarding and abdomen not rigid Psychiatric: A+Ox3, euthymic affect Results & Data Vital Signs (Past 12 Hours) Vital Signs Temp Pulse Resp BP Pulse Ox O2 Del Method 05/23/23 07:11 36.7 C 56 L 16 125/64 95 Room Air 05/22/23 23:55 36.8 C 58 L 16 168/72 H 96 Room Air Diagnostic Findings Laboratory Results WBC 10.51 K/ul (4.8-10.8) 05/22/23 17:28 RBC 4.80 M/uL (4.20-5.40) 05/22/23 17:28 Hgb 14.2 g/dl (12.0-16.0) 05/22/23 17:28 Hct 43.4 % (37.0-47.0) 05/22/23 17:28 MCV 90.4 fL (80.0-100.0) 05/22/23 17:28 MCH 29.6 pg (25.0-34.0) 05/22/23 17:28 MCHC 32.7 g/dL (32.0-36.0) 05/22/23 17:28 RDW Std Deviation 43.2 fL (36.4-46.3) 05/22/23 17:28 RDW Coeff of Henny 13.1 % (11.5-14.5) 05/22/23 17:28 Plt Count 269 K/uL (130-400) 05/22/23 17:28 MPV 10.9 fL (9.4-12.4) 05/22/23 17:28 Immature Gran % (Auto) 0.9 % 05/22/23 17:28 Neut % (Auto) 92.0 % 05/22/23 17:28 Lymph % (Auto) 3.1 % 05/22/23 17:28 [place] % (Auto) 3.8 % 05/22/23 17: Eos % (Auto) 0.0 % 05/22/23 17: Baso % (Auto) 0.2 % 05/22/23 17: Neut # (Auto) 9.67 K/uL (1.40-6.50) H 05/22/23 17: Lymph # (Auto) 0.33 K/uL (1.20-3.40) L 05/22/23 17: [place] # (Auto) 0.40 K/uL (0.11-0.59) 05/22/23: Eos # (Auto) 0.00 K/uL (0.00-0.50) 05/22/23: Baso # (Auto) 0.02 K/uL (0.00-0.20) 05/22/23: Immature Gran # (Auto) 0.09 K/uL (0.01-0.20) 05/22/23 17: Sodium 140 mmol/L (136-145) 05/23/23 11:12 Potassium 3.6 mmol/L (3.5-5.1) 05/23/23 11:12 Chloride 108 mmol/L (98-107) H 05/23/23 11:12 Carbon Dioxide 27 mmol/L (21-32) 05/23/23 11:12 Anion Gap 5 (3-11) 05/23/23 11:12 BUN 13 mg/dl (6-23) 05/23/23 11:12 Creatinine 0.68 mg/dl (0.6-1.2) 05/23/23 11:12 Est Cr Clr Drug Dosing 57.8 ml/min 05/23/23 11:12 Est GFR ( Amer) 98.5 ml/min 05/23/23 11:12 Est GFR (Non-Af Amer) 85.0 ml/min 05/23/23 11:12 BUN/Creatinine Ratio 19.1 (10-20) 05/23/23 11:12 Glucose 93 mg/dl (70-99(Fasting)) 05/23/23 11:12 Lactate 1.1 mmol/L (0.4-2.0) 05/23/23 11:12 Calcium 7.6 mg/dl (8.6-10.3) L 05/23/23 11:12 Phosphorus 2.5 mg/dl (2.5-4.9) 05/23/23 11:12 Magnesium 1.8 mg/dl (1.7-2.4) 05/23/23 11:12 Total Bilirubin 0.7 mg/dl (0.2-1.0) 05/23/23 11:12 AST 13 U/L (13-39) 05/23/23 11:12 ALT 8 U/L (7-52) 05/23/23 11:12 Alkaline Phosphatase 70 U/L (34-104) 05/23/23 11:12 Troponin I High Sens 4.3 pg/ml (0-14) 05/22/23 17:28 Total Protein 5.5 gm/dl (6.0-8.3) L 05/23/23 11:12 Albumin 3.2 gm/dl (3.4-5.0) L 05/23/23 11:12 Globulin 2.3 gm/dl (2.5-4.0) L 05/23/23 11:12 Albumin/Globulin Ratio 1.4 (0.9-2) 05/23/23 11:12 Lipase 45 U/L (11-82) 05/23/23 11:12 Urine Color Yellow 05/22/23 23:19 Urine Appearance Clear (Clear) 05/22/23 23:19 Urine pH 5.0 (4.5-7.5) 05/22/23 23:19 Ur Specific [place] > 1.045 (1.000-1.030) H 05/22/23 23:19 Urine Protein Negative (Negative) 05/22/23 23:19 Urine Glucose (UA) Negative (Negative) 05/22/23 23:19 Urine Ketones Trace (Negative) H 05/22/23 23:19 Urine Blood Trace (Negative) H 05/22/23 23:19 Urine Nitrite Positive (Negative) A 05/22/23 23:19 Urine Bilirubin Negative (Negative) 05/22/23 23:19 Urine Urobilinogen Negative (Negative) 05/22/23 23:19 Ur Leukocyte Esterase Negative (Negative) 05/22/23 23:19 Urine WBC (Auto) 10-30 /hpf (0-5) H 05/22/23 23:19 Urine RBC (Auto) 0-4 /hpf (0-4) 05/22/23 23:19 U Hyaline Cast (Auto) 1-5 /lpf (0-5) 05/22/23 23:19 U Epithel Cells (Auto) >30 /lpf (0-5) H 05/22/23 23:19 Urine Bacteria (Auto) 4+ (Negative) H 05/22/23 23:19 Impressions Abdomen/Pelvis CT 05/22/23 15:39 CR Exam(s): CT ABDOMEN + PELVIS With Contrast IV Amt: 89 ml optiray 320 EXAM: CT Abdomen and Pelvis With Intravenous Contrast CLINICAL HISTORY: Pain. TECHNIQUE: Axial computed tomography images of the abdomen and pelvis with intravenous contrast. CTDI is 17.72 mGy and DLP is 790.74 mGy-cm. Automated exposure control was utilized for the study. A dose lowering technique was utilized adhering to the principles of ALARA. CONTRAST: Patient received 89 ml optiray 320 of IV contrast COMPARISON: No relevant prior studies available. FINDINGS: Lung bases: Unremarkable. No mass. No consolidation. ABDOMEN: Liver: Unremarkable. No mass. Gallbladder and bile ducts: Mildly dilated common bile duct measuring 0.7 cm and dilated pancreatic duct measuring 0.6 cm. "Double duct sign ". This is concerning for an occult ampullary lesion. Cholelithiasis. Pancreas: See above. Spleen: Unremarkable. No splenomegaly. Adrenals: Unremarkable. No mass. Kidneys and ureters: Unremarkable. No solid mass. No hydronephrosis. Stomach and bowel: Small bowel obstruction with a transition point in the mid abdomen. There is significant fluid in the adjacent mesentery of the loop of bowel in the mid abdomen, this is concerning for a portion of the instruction to be a closed loop. Cannot exclude early ischemia. No mucosal thickening. PELVIS: Appendix: No findings to suggest acute appendicitis. Bladder: Unremarkable. No mass. Reproductive: Unremarkable as visualized. ABDOMEN and PELVIS: Intraperitoneal space: Unremarkable. No free air. No significant fluid collection. Bones/joints: There are degenerative changes of the spine. No acute fracture. No dislocation. Soft tissues: Unremarkable. Vasculature: Mild atherosclerosis. No abdominal aortic aneurysm. Lymph nodes: Unremarkable. No enlarged lymph nodes. IMPRESSION: 1. Small bowel obstruction with a transition point in the mid abdomen. There is significant fluid in the adjacent mesentery of the loop of bowel in the mid abdomen which appears to be confined to a loop, this is concerning for a portion of the obstruction to be a closed loop. Cannot exclude early ischemia. Surgical consult is recommended. 2. Cholelithiasis. 3. Mildly dilated common bile duct measuring 0.7 cm and dilated pancreatic duct measuring 0.6 cm. "Double duct sign ". This is concerning for an occult ampullary lesion. 4. Cholelithiasis. Communications: Call Doctor Above results Electronically signed by: Mariam Adams MD 05/22/23 20:16 PM PG Care Time/CCT Total # of Minutes Spent Total Time Spent with Patient: Total time spent is greater than 50% in coordination of care (as documented) at patient's floor/unit and/or counseling patient: Coding Level of Care Code 15610 INT INP/OBS CARE 3/75MIN Diagnoses Small bowel obstruction K56.609 Abdominal pain R10.9 Abdominal location: unspecified location Abnormal findings on imaging of biliary tract R93.2 (2) Abdominal pain Abdominal location: unspecified location Qualified Code(s): R10.9 - Unspecified abdominal pain
[2023-05-23 12:04] LABS: Basophils # (auto) 0.02 K/uL (0.00-0.20); Basophils % (auto) 0.2 %; Eosinophils # (auto) 0.01 K/uL (0.00-0.50); Eosinophils % (auto) 0.1 %; Hematocrit (blood only) 38.2 % (37.0-47.0); Hemoglobin 12.2 g/dl (12.0-16.0); Immature Granulocytes # (auto) 0.04 K/uL (0.01-0.20); Immature Granulocytes % (auto) 0.5 %; Lymphocytes % (auto) 7.3 %; Mean Corpuscular Hemoglobin 29.5 pg (25.0-34.0); Mean Corpuscular Hgb Conc 31.9 g/dL (32.0-36.0); Mean Corpuscular Volume 92.5 fL (80.0-100.0); Mean Platelet Volume 10.9 fL (9.4-12.4); Monocytes # (auto) 0.85 K/uL (0.11-0.59); Monocytes % (auto) 10.3 %; Neutrophils % (auto) 81.6 %; Platelet Count 235 K/uL (130-400); RDW Coefficient of Variation 13.8 % (11.5-14.5); RDW Standard Deviation 46.6 fL (36.4-46.3); Red Blood Count 4.13 M/uL (4.20-5.40); White Blood Count 8.22 K/ul (4.8-10.8)
--- NOTE | 2023-05-23 13:52 | Electrocardiogram Report ---
Test Reason : Blood Pressure : / mmHG Vent. Rate : 045 BPM Atrial Rate : 045 BPM P-R Int : 090 ms QRS Dur : 080 ms QT Int : 478 ms P-R-T Axes : 048 -36 092 degrees QTc Int : 413 ms Sinus bradycardia with short NH Left axis deviation Low voltage QRS Septal infarct , age undetermined Abnormal ECG When compared with ECG of 09-SEP-2022 21:57, NH interval has decreased Septal infarct is now Present Confirmed by Zachary Nichole ([id number]) on 05/23/2023 1:51:39 PM Referred By: REFERRED SELF Confirmed By:Zachary Nichole
--- NOTE | 2023-05-23 14:58 | Communication Note ---
Date of Service: May 23, 2023 Saw patient at bedside, she reports feeling well. Had small BM. Denies Abdominal pain, n/v. Will start her on clear liquids.
--- NOTE | 2023-05-23 17:41 | Hospitalist Progress Note ---
Date of Service May 23, 2023 Assessment & Plan (1) Small bowel obstruction: Plan: History of previous with similar symptoms, likely 2/2 prior appendectomy with adhesions. Is UTD on colonoscopy in 2018 Improving with bowel rest. NGT was not placed as she improved very quickly Seen by Gen Surgery-appreciate consult--> moved bowels today, symptoms all resolved--> ok to start clears diet Adv diet as tolerated, monitor bowel function continue IVFs no need for abx-discontinued continue Pantoprazole 40 mg IV daily Acetaminophen 1 g IV every 8 hours as needed for mild pain or fever Toradol 15 mg IV every 6 hours as needed for moderate pain Morphine sulfate 2 mg IV every 3 hours as needed for severe pain continue ambulation (2) Abnormal findings on imaging of biliary tract: Plan: Double duct sign/dilated common bile duct and pancreatic duct seen on CT which could inidicate mass effect Placed gastroenterology consult -plan for outpt EUS with [facility] for further eval (3) Idiopathic polyneuropathy: Plan: not on meds for this (4) Mild obstructive sleep apnea: Plan: no treatment (5) Prediabetes: Plan: HgbA1C 6.0%, not on meds Plan DVT proph-add on Lovenox Dispo-continued stay, possible dc to home tomorrow Admission and Anticipated Discharge Date Admission Date: May 22, 2023 Subjective Feeling much better, pain gone, moved her bowels by the afternoon, no nausea. Surgery advanced her diet to clears and she tolerated this. Physical Exam Constitutional: WD/WN, vitals as above Respiratory: normal respiratory effort, lungs clear to auscultation Cardiovascular: RRR, no murmur, no edema Gastrointestinal (Abdomen): normal bowel sounds, soft, nontender, no hepatosplenomegaly Psychiatric: A+Ox3, euthymic affect Results & Data Results & Data Vital Signs (Past 12 Hours) Vital Signs Temp Pulse Resp BP Pulse Ox O2 Del Method 05/23/23 15:03 36.7 C 50 L 16 118/55 L 97 Room Air 05/23/23 07:11 36.7 C 56 L 16 125/64 95 Room Air Laboratory Results CBC, CMP, magnesium level, UA reviewed PG Care Time/CCT Total # of Minutes Spent Total Time Spent with Patient: Total time spent is greater than 50% in coordination of care (as documented) at patient's floor/unit and/or counseling patient: Coding Level of Care Code 66563 SUB INP/OBS CARE MIN Diagnoses Small bowel obstruction K56.609 Abnormal findings on imaging of biliary tract R93.2 Idiopathic polyneuropathy G60.9 Mild obstructive sleep apnea G47.33 Prediabetes R73.03
[2023-05-23] MEDS ORDERED: ENOXAPARIN INJ 40 MG/0.4 ML SYR SQ SCH (18:00)
[2023-05-24] MEDS: NSS + 20MEQ KCL 20 MEQ/1,000 ML BAG IV SCH (04:58)
[2023-05-24 06:35] LABS: Basophils # (auto) 0.02 K/uL (0.00-0.20); Basophils % (auto) 0.4 %; Eosinophils # (auto) 0.04 K/uL (0.00-0.50); Eosinophils % (auto) 0.9 %; Hematocrit (blood only) 34.7 % (37.0-47.0); Hemoglobin 11.4 g/dl (12.0-16.0); Immature Granulocytes # (auto) 0.03 K/uL (0.01-0.20); Immature Granulocytes % (auto) 0.7 %; Lymphocytes # (auto) 0.57 K/uL (1.20-3.40); Lymphocytes % (auto) 12.8 %; Mean Corpuscular Hgb Conc 32.9 g/dL (32.0-36.0); Mean Corpuscular Volume 91.3 fL (80.0-100.0); Mean Platelet Volume 10.8 fL (9.4-12.4); Monocytes # (auto) 0.43 K/uL (0.11-0.59); Monocytes % (auto) 9.6 %; Neutrophils # (auto) 3.37 K/uL (1.40-6.50); Neutrophils % (auto) 75.6 %; Platelet Count 184 K/uL (130-400); RDW Coefficient of Variation 13.9 % (11.5-14.5); RDW Standard Deviation 46.5 fL (36.4-46.3); White Blood Count 4.46 K/ul (4.8-10.8)
[2023-05-24 06:56] LABS: BUN Creatinine Ratio 18.6 (10-20); Calcium 7.5 mg/dl (8.6-10.3); Creatinine Clr Calc Pharmacy 66.6 ml/min; Est GFR (African American) 103.2 ml/min; Magnesium 1.9 mg/dl (1.7-2.4); Phosphorus 2.2 mg/dl (2.5-4.9)
--- NOTE | 2023-05-24 08:39 | Surgery Progress Note ---
Date of Service May 24, 2023 Assessment & Plan (1) Small bowel obstruction: Plan: pt denies abd pain, soft non tender, non distended denies CP, SOB, Fever/chills, n/v VSS ambulating in halls VSS , wbc wnl advanced to full liquids if tolerates may be discharged today from a general surgical stand point. Admission and Anticipated Discharge Date Admission Date: May 22, 2023 Supervising Physician Co-Signing Physician Notes pnt S&E, agree with above. SBO, resolving. +bm, tolerated fulls. adv to low fiber, d/c to home. Subjective pt reports feeling great no n/v having bms no abd pain Review of Systems Constitutional: no fever, no chills and no fatigue Eyes: + corrective lenses Ear, Nose, Mouth, Throat: no ear pain Respiratory: no dyspnea Cardiovascular: no chest pain Gastrointestinal: no abdominal pain, no bloating, no nausea and no vomiting Genitourinary: no problem reported Musculoskeletal: no back pain Integumentary: no rash Neurologic: no localized weakness Physical Exam Physical Exam: alert oriented Constitutional: well developed, cooperative and comfortable; no acute distress ENMT: external ear and nose normal, oropharynx normal Neck: trachea midline, no thyromegaly Respiratory: normal respiratory effort and able to speak in complete sentences; no respiratory distress Cardiovascular: Rate/Rhythm: + bradycardic (57) Gastrointestinal (Abdomen): Inspection/Auscultation: abdomen not distended Percussion/Palpation: abdomen soft; abdomen nontender, no guarding, abdomen not rigid and no hernia Musculoskeletal: no cyanosis or clubbing, extremities motor strength 5/5 Skin: no rashes, warm and dry Neurologic: awake; not confused Psychiatric: A+Ox3, euthymic affect Results & Data Vital Signs (Past 12 Hours) Vital Signs Temp Pulse Resp BP Pulse Ox O2 Del Method 05/24/23 07:07 97.7 F 57 L 16 144/77 H 92 Room Air PG Care Time/CCT Total # of Minutes Spent Total Time Spent with Patient: Total time spent is greater than 50% in coordination of care (as documented) at patient's floor/unit and/or counseling patient: Coding Level of Care Code 04362 SUB INP/OBS CARE 2/35MIN Diagnoses Small bowel obstruction K56.609
--- NOTE | 2023-05-24 11:26 | Discharge Summary ---
Discharge Summary Date of Service May 24, 2023 Notes For Next Care Provider Medication Changes From Visit Discontinue hyoscyamine Increase Miralax to bid Admission HPI Per Admitting Provider The patient is a 77-year-old female with past medical history of recurrent small bowel obstructions, idiopathic polyneuropathy, mild SAUD, insomnia, diabetes mellitus type 2, vitamin D deficiency, nontoxic multinodular goiter, dyslipidemia and IBS. She presents emergency department as above, with recurrence of symptoms similar to previous bowel obstructions. CT scan of abdomen and pelvis is consistent with small bowel obstruction with transition point in the mid abdomen. There is mildly dilated common bile duct and pancreatic duct consistent with double duct sign. Principal Dx & Hospital Course #1 = Principal Diagnosis (1) Small bowel obstruction: History of previous with similar symptoms, likely 2/2 prior appendectomy with adhesions. Is UTD on colonoscopy in 2018 Resolved with bowel rest, time, IVFs, electrolyte replacement, ambulation. NGT was not placed as she improved very quickly Seen by Gen Surgery-appreciate consult Tolerating full liquids , moving bowels multiple times, no abd pain, no nausea, doing very well Stable for dc to home with advancement to low fiber diet at home Recommend STOPPING hyoscyamine as it is contraindicated with h/o SBO given its anticholinergic effects Advised increasing Miralax to bid (2) Abnormal findings on imaging of biliary tract: Double duct sign/dilated common bile duct and pancreatic duct seen on CT which could inidicate mass effect Placed gastroenterology consult -plan for outpt EUS with [facility] for further eval (3) Idiopathic polyneuropathy: not on meds for this (4) Mild obstructive sleep apnea: no treatment (5) Prediabetes: HgbA1C 6.0%, not on meds Plan DVT proph- Lovenox Dispo-dc to home Discharge Exam Constitutional WD/WN, vitals as above Respiratory normal respiratory effort, lungs clear to auscultation Cardiovascular RRR, no murmur, no edema Gastrointestinal (Abdomen) normal bowel sounds, soft, nontender, no hepatosplenomegaly Psychiatric A+Ox3, euthymic affect Updated Medication List Medication Instructions Recorded Confirmed Type vitamin B complex (B 1 tab PO QAM 04/27/20 05/22/23 History Complex-Vitamin B12 tablet) calcium carbonate 600 mg calcium 600 mg PO QAM 03/31/21 05/22/23 History (1,500 mg) tablet (Calcium) multivitamin (Daily Multi-Vitamin 1 tab PO QAM 03/31/21 05/22/23 History tablet) hyoscyamine sulfate 0.125 mg tablet 0.125 mg PO QID PRN Diarrhea #60 09/05/22 05/22/23 Rx tabs polyethylene glycol 3350 17 17 g PO BID #119 grams 05/24/23 Rx gram/dose oral powder (Miralax) Hospital Stay Data Consultations 05/22/23 20:32 Consult General Surgery Stat 05/22/23 21:09 ED Decision to Admit Stat 05/23/23 10:55 Consult Gastroenterology Routine Diagnostic Imagining Performed 05/22/23 15:39 CT abd pelvis IV con only Stat Pending Results Patient Have Any Pending Studies at Discharge: No Discharge Instructions Given to Patient (Per Discharging Provider) Please continue Miralax 1-2 x per day, low fiber diet, and frequent walking to prevent future recurrence of bowel obstruction. You also should NOT take the hyoscyamine as this can cause your bowels to slow down and put you at risk for bowel obstruction. For the abnormality on your CT scan of the abdomen, you will be set up to have an endoscopic ultrasound with [facility] as an outpatient. Please call their office if you do not hear from them within the next week to schedule. Total Time Total Time Spent Total Time Spent (In Minutes): 35 min Coding Level of Care Code 79592 INP/OBS DISCH >30 MIN Diagnoses Small bowel obstruction K56.609 Abnormal findings on imaging of biliary tract R93.2 Idiopathic polyneuropathy G60.9 Mild obstructive sleep apnea G47.33 Prediabetes R73.03
[2023-05-24] MEDS: PANTOprazole 40 MG in SYRINGE 0 ML IV SCH (12:04)
[2023-05-24] MEDS ORDERED: POT PHOSPHATE MONOBASIC W/ SOD TAB PO SCH (13:00)
== END 2023-05-24 15:54 | disposition home or self-care (01) | DRG 390 ==
LOC: ED 15:18 → 3W 21:51 → SUATTDRO 21:51 → 3W 23:06

== ENCOUNTER 2023-10-19 11:36 | Observation (INO) ==
--- NOTE | 2023-10-19 11:52 | ED Triage Note ---
Date of Service October 19, 2023 Provider in Triage Author: Jacob You History of Present Illness This patient was briefly evaluated while in triage. An abbreviated physical exam was performed. This patient is a 77-year-old Female who presents to the ED for evaluation of abdominal pain patient reports that the pain awakened her at nighttime, and reports that it persist. She reports pain in the upper central abdominal region. Patient reports nausea without vomiting. Patient denies any pain radiating into the back or chest. The patient called her PCPs office, and instructed her to come to the emergency department for further evaluation. The patient is concerned that she has another bowel obstruction, and was admitted this past May for the same. The patient rates her discomfort a 7 out of 10. Physical Exam CONSTITUTIONAL: Healthy and well nourished. Patient appears in moderate discomfort. HEENT: No scleral icterus or conjunctival injection. RESPIRATORY: Clear to auscultation bilaterally with no wheezing, crackles, rhonchi or stridor. CARDIOVASCULAR: Regular rate and rhythm with no murmurs, rubs or gallops. GASTROINTESTINAL: Bowel sounds present in all quadrants. Patient has diffuse upper abdominal tenderness to palpation. INTEGUMENTARY: No rash or other significant dermatologic conditions noted. HEMATOLOGIC: No ecchymosis or petechiae. PSYCHIATRIC: Positive affect. NEUROLOGIC: No focal neurologic deficits noted. Initial orders for labs and / or imaging were placed and patient was placed in the waiting area until a bed is available. Please see further documentation for the full ED course.
[2023-10-19] MEDS: ONDANSETRON INJ 2 MG/ML 2 ML VIAL IV STA (12:00)
--- NOTE | 2023-10-19 12:16 | Emergency Department Note ---
Impression & Plan SBO (small bowel obstruction) ED Provider Note Provider: Carlos Thao MD DATE OF SERVICE: 10/19/2023 CHIEF COMPLAINT: Abdominal pain, nausea HISTORY OF PRESENT ILLNESS: Patient is a 77-year-old female past medical history of polyneuropathy, osteoporosis, IBS, and prior SBO presenting here today reporting overnight developed pain in the upper abdomen with nausea. Did have a small bowel movement this morning but states it feels the same as when she had bowel obstructions in the past. Called her doctor's office of her here for evaluation. Denies any chest pain or back pain. Denies lower abdominal pain. No trauma. No vomiting at home but again feeling significantly nauseous. 7 out of 10 pain has not take anything for pain prior to arrival. No fevers reported. Did states she had some vegetables and thought this may be contributing. Last bowel obstruction was in May and the one previous to that about 6 years ago. Prior appendectomy when she is about 5 years old but denies other history of significant bowel surgeries. Pain when trying to sit up or flex the abdomen. PAST MEDICAL HISTORY: As noted above MEDICATIONS: Denies prescription medications currently SOCIAL HISTORY: Non-smoker PHYSICAL EXAM: GENERAL: alert and oriented in no acute distress on stretcher Head: normocephalic and atraumatic EYES: No injection, discharge or icterus. NECK: Trachea midline. ENT: Mucous membranes pink and moist. LUNGS: Airway patent. No retractions or tachypnea HEART: Regular bradycardia rate and rhythm. No chest wall tenderness ABDOMEN: Soft no tenderness of the lower abdomen significant tenderness of the upper abdomen. SKIN: Acyanotic, warm, dry, without rashes EXTREMITIES: Without swelling, tenderness or deformity NEUROLOGICAL: No focal deficits. No aphasia. No facial droop or slurred speech. EK bpm sinus bradycardia in the 40s QTc 397. No clear acute ST segment elevation. CONTINUOUS CARDIAC MONITORING: was ordered and showed a heart rate of 40s-50s bpm in sinus bradycardia PDMP was checked without noted issue. Patient's laboratory studies and imaging reviewed. Differential includes infections, diverticulitis, UTI, obstruction, mesenteric ischemia, aortic pathology, inflammatory bowel disease, renal colic, PUD, pancreatitis, biliary pathology, hernia, volvulus, constipation, as well as other pathologies. IMPRESSION/MEDICAL DECISION MAKING: Patient history of SBO and reports similar symptoms. Nausea but no vomiting. Slightly improved with Zofran here. Given some IV fluid. Will give small amount of morphine as she is in discomfort. Tender in the upper abdomen but not the lower abdomen. Slight bowel movement this morning. Will obtain CT scan for further differentiation. EKG and troponin were completed as well as basic blood work. Seems less likely be cardiac or pulmonary relation denies active chest pain. States he normally has a lower heart rate. Blood work without leukocytosis or anemia. No significant lecture light abnormality signs of renal dysfunction. No anion gap. No significant evidence of hepatitis or pancreatitis based on labs. Troponin returned normal. CT scan of the abdomen pelvis per radiology with findings consistent with small bowel obstruction without clear transition point question of maybe a closed-loop bowel obstruction but lactate is normal. On reassessment she is without nausea sitting up reading a magazine. States a little bit discomfort but much improved. Discussed with her the findings. Will reach out discussed with surgery but plan for admission for the small bowel obstruction. Given her well appearance will discuss with surgery. Will plan for NG tube with the patient develops nausea. Discussed with the hospitalist team. DIAGNOSIS: Small bowel obstruction DISPOSITION: Hospitalist and surgeon will evaluate Patient was agreeable with this plan. Past Med/Surg History Problem List (Updated 10/19/23 @ 15:52 by Carlos Thao M.D.) SBO (small bowel obstruction) (Acute) Change in bowel habits Abnormal findings on imaging of biliary tract Idiopathic polyneuropathy Presbylarynges (Chronic) Insomnia Insufficient sleep syndrome Prediabetes (Chronic) Mild obstructive sleep apnea no device History of colon polyps Anxiety (Chronic) Varicose veins of both lower extremities (Chronic) Vitamin D deficiency (Chronic) Osteoporosis (Chronic) Treated with Reclast 2011, 2017, 2019 Nontoxic multinodular goiter (Chronic) Dyslipidemia (Chronic) IBS (irritable bowel syndrome) (Chronic) Medical History History of COVID-19 Small bowel obstruction Mild obstructive sleep apnea Anxiety C. difficile colitis Varicose veins of both lower extremities Prediabetes Osteoporosis Nontoxic multinodular goiter Dyslipidemia Breast cancer IBS (irritable bowel syndrome) Surgical History History of colonoscopy Hx of lumpectomy History of surgery Hx of tonsillectomy H/O: hemorrhoidectomy History of appendectomy Family History Aunt Breast cancer Brother Diabetes Lung cancer Mother Cardiac disorder Brother Diabetes Parkinsons disease Brother Diabetes Denies family history of Ovarian cancer Prostate cancer Myocardial infarction Colorectal cancer Social History (Updated 09/06/23 @ 12:13 by Barbara Walsh LPN) Smoking Status: Never smoker Second Hand Exposure: No; Do You Dip or Chew Tobacco: No; Hx Alcohol Use: No Hx Substance Use: No Preferred Language: Belarusian Communication Ability: Effective Visual Impairment: No Limitations Hearing Ability: Hard of Hearing Touch Up Edger Required: No Beliefs That Will Affect Care: None marital status: marital status details: two children Current Living Situation: Spouse Current Living Situation Comment: lives with and daughter current occupational status: retired 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 Feels Safe at Home: Yes Childhood Exposure to Second-Hand Smoke: Yes Diet: regular caffeine: Yes Dental Care, Regularly: Yes Physical Activity Frequency: Daily Seatbelt Use: always Sunscreen Use: No Assistive Devices: Glasses Allergies Allergies Allergy/AdvReac Type Severity Reaction Status Date / Time Penicillins Allergy Unknown SKIN Verified 10/19/23 15:35 IRRITATION>"[place]" 47 YEARS AGO cephalexin AdvReac Mild Diarrhea Verified 10/19/23 15:35 Home Meds Home Medications Medication Instructions Recorded Confirmed calcium carbonate (Calcium 600) 600 mg PO QAM 03/31/21 10/19/23 multivitamin 1 tab PO QAM 05/30/23 10/19/23 polyethylene glycol 3350 17 gram 17 g PO BID 05/31/23 10/19/23 oral powder packet (Miralax) cholecalciferol (vitamin D3) 50 50 mcg PO DAILY 09/06/23 10/19/23 mcg (2,000 unit) tablet ipratropium bromide 21 mcg (0.03 2 spray intranasal BID PRN Allergy 10/19/23 10/19/23 %) nasal spray Symptoms Results & Data (ED) Vital Signs Vital Signs - 24 hr 10/19/23 11:49 10/19/23 13:06 10/19/23 15:06 Temperature 36.7 C Temperature Source Temporal Artery Scan Pulse Rate 46 L 44 L Pulse Rate [Finger] 48 L Pulse Rate [Left Apical] Pulse Rhythm Regular Pulse Rhythm [Finger] Regular Pulse Strength Normal Respiratory Rate 18 18 Respiratory Effort / Characteristics Non-Labored Non-Labored Spontaneous Respiratory Depth Normal Normal Respiratory Pattern Regular Regular Blood Pressure 178/66 H Blood Pressure [Left Arm] 163/76 H Blood Pressure [Left Radial Artery] Blood Pressure Mean 103 Blood Pressure Mean [Left Arm] 105 Blood Pressure Mean [Left Radial Artery] Blood Pressure Position Sitting Blood Pressure Position [Left Arm] Sitting Pulse Oximetry 99 97 Oxygen Delivery Method Room Air Room Air Sepsis Recent Fever Within 48 Hours No Sepsis New/Unexplained Change in Mental Status No Sepsis Action Taken by Nursing No Action Required 10/19/23 15:06 10/19/23 17:39 10/19/23 18:01 Temperature Temperature Source Pulse Rate 42 L Pulse Rate [Finger] Pulse Rate [Left Apical] 46 L 50 L Pulse Rhythm Pulse Rhythm [Finger] Pulse Strength Respiratory Rate 18 17 20 Respiratory Effort / Characteristics Non-Labored Spontaneous Non-Labored Respiratory Depth Normal Normal Respiratory Pattern Blood Pressure Blood Pressure [Left Arm] Blood Pressure [Left Radial Artery] 190/76 H Blood Pressure Mean Blood Pressure Mean [Left Arm] Blood Pressure Mean [Left Radial Artery] 114 Blood Pressure Position Blood Pressure Position [Left Arm] Pulse Oximetry 98 97 96 Oxygen Delivery Method Room Air Room Air Room Air Sepsis Recent Fever Within 48 Hours Sepsis New/Unexplained Change in Mental Status Sepsis Action Taken by Nursing Laboratory Data 10/19/23 12:06 10/19/23 12:06 Lab Results 10/19/23 10/19/23 10/19/23 Range/Units 12:06 14:36 17:40 WBC 5.71 (4.8-10.8) K/ul RBC 4.89 (4.20-5.40) M/uL Hgb 14.4 (12.0-16.0) g/dl Hct 43.6 (37.0-47.0) % MCV 89.2 (80.0-100.0) fL MCH 29.4 (25.0-34.0) pg MCHC 33.0 (32.0-36.0) g/dL RDW Std Deviation 42.4 (36.4-46.3) fL RDW Coeff of Henny 13.1 (11.5-14.5) % Plt Count 230 (130-400) K/uL MPV 10.4 (9.4-12.4) fL Immature Gran % (Auto) 0.5 % Neut % (Auto) 81.8 % Lymph % (Auto) 10.7 % Daniels % (Auto) 6.3 % Eos % (Auto) 0.5 % Baso % (Auto) 0.2 % Neut # (Auto) 4.67 (1.40-6.50) K/uL Lymph # (Auto) 0.61 L (1.20-3.40) K/uL Daniels # (Auto) 0.36 (0.11-0.59) K/uL Eos # (Auto) 0.03 (0.00-0.50) K/uL Baso # (Auto) 0.01 (0.00-0.20) K/uL Immature Gran # (Auto) 0.03 (0.01-0.20) K/uL Sodium 140 (136-145) mmol/L Potassium 4.0 (3.5-5.1) mmol/L Chloride 104 (98-107) mmol/L Carbon Dioxide 29 (21-32) mmol/L Anion Gap 7 (3-11) BUN 15 (6-23) mg/dl Creatinine 0.62 (0.6-1.2) mg/dl Est Cr Clr Drug Dosing Not Reportable Est GFR ( Amer) 101.5 ml/min Est GFR (Non-Af Amer) 87.6 ml/min BUN/Creatinine Ratio 24.2 H (10-20) Glucose 122 H (70-99(Fasting)) mg/dl Lactate 1.0 (0.4-2.0) mmol/L Calcium 9.1 (8.6-10.3) mg/dl Total Bilirubin 0.7 (0.2-1.0) mg/dl AST 17 (13-39) U/L ALT 13 (7-52) U/L Alkaline Phosphatase 90 (34-104) U/L Troponin I High Sens 4.3 (0-14) pg/ml Total Protein 7.1 (6.0-8.3) gm/dl Albumin 4.2 (3.4-5.0) gm/dl Globulin 2.9 (2.5-4.0) gm/dl Albumin/Globulin Ratio 1.4 (0.9-2) Lipase 52 (11-82) U/L Urine Color Yellow Urine Appearance Clear (Clear) Urine pH 7.5 (4.5-7.5) Ur Specific [place] > 1.045 H (1.000-1.030) Urine Protein Negative (Negative) Urine Glucose (UA) Negative (Negative) Urine Ketones Negative (Negative) Urine Blood Negative (Negative) Urine Nitrite Negative (Negative) Urine Bilirubin Negative (Negative) Urine Urobilinogen Negative (Negative) Ur Leukocyte Esterase Trace H (Negative) Urine WBC (Auto) 0-5 (0-5) /hpf Urine RBC (Auto) 0-2 (0-2) /hpf U Hyaline Cast (Auto) 0-2 (0-2) /lpf U Epithel Cells (Auto) 0-2 (0-2) /hpf Urine Bacteria (Auto) None Seen (None Seen) Administered Medications Lactated Ringer's (Lr) 1,000 mls @ 100 mls/hr IV .Q10H RAMYA Stop: 10/20/23 13:44 Last Admin: 10/19/23 18:02 Dose: 100 mls/hr Documented By: DMLissett Discontinued Medications Sodium Chloride (Nss) 500 mls @ 999 mls/hr IV .Q31M ONE Stop: 10/19/23 12:22 Last Infusion: 10/19/23 13:17 Dose: Infused Documented By: Admin: 10/19/23 12:18 Dose: 999 mls/hr Documented By: BACILIO Ioversol (Optiray 320 100ml) 94 ml IV ONCE ONE Stop: 10/19/23 14:04 Last Admin: 10/19/23 14:03 Dose: 94 ml Documented By: EVARISTO Morphine Sulfate (Morphine Sulfate 2 Mg/Ml Carp) 2 mg IV NOW STA Stop: 10/19/23 12:21 Last Admin: 10/19/23 12:37 Dose: 2 mg Documented By: KATIA Ondansetron HCl (Ondansetron Inj 2 Mg/Ml 2 Ml Vial) 4 mg IV NOW STA Stop: 10/19/23 11:53 Last Admin: 10/19/23 12:00 Dose: 4 mg Documented By: ARS Imaging Data Radiologist's Impression: Abdomen/Pelvis CT 10/19/23 11:[address] WITH IV CONTRAST CT DOSE: 835.63 mGy.cm HISTORY: Abd paibn, h/o SBO TECHNIQUE: Multiaxial CT images of the abdomen and pelvis were performed following the use of intravenous contrast. A dose lowering technique was utilized adhering to the principles of ALARA. COMPARISON STUDY: Abdomen and pelvis CT 05/22/2023. FINDINGS: Mild dependent changes seen within the lung bases. No pneumoperitoneum. No pneumatosis. No acute fractures. The heart is borderline enlarged. There is a trace pericardial effusion. Postoperative changes again noted within the right breast. Tiny fat-containing umbilical hernia. Cholelithiasis. No gallbladder wall thickening. Normal caliber common bile duct. Persistent dilatation the main pancreatic duct measuring up to 6 mm. This is similar to the prior study. However, the pancreas enhances normally. The spleen, adrenal glands, and kidneys are unremarkable. The main portal vein is patent. Mild calcified plaque within the normal caliber abdominal aorta. No retroperitoneal or pelvic lymphadenopathy. The bladder, uterus, bilateral adnexa are unremarkable. Pelvic floor collapse is again noted. Multiple dilated fluid- filled loops of small bowel within the left mid abdomen with mild surrounding fat stranding. This is consistent with a small bowel obstruction.. The exact transition point is difficult to assess. There are scattered areas of mucosal hyperemia/thickening within the distal ileum. Overall, the distended loops of small bowel are improved compared to the May 22, 2023 examination. Focal area of severe narrowing within a mid small bowel loop within the left abdomen on image 154. However, the small bowel proximal to distal to this site are distended. This could represent one of the transition points in the setting of a closed loop type obstruction. IMPRESSION: 1. . Multiple dilated fluid-filled loops of small bowel within the left mid abdomen with mild surrounding fat stranding. This is consistent with a small bowel obstruction. Overall, the distended loops of small bowel are improved compared to the May 22, 2023 examination. The exact transition point is difficult to assess. There is a focal area of severe narrowing within a mid small bowel loop within the left abdomen which could represent one of the transition points in the setting of a closed loop type obstruction. 2. There are scattered areas of mucosal hyperemia/thickening within the distal ileum. This could represent lymphoid hyperplasia or possibly a inflammatory or infectious ileitis. This may also account for the areas of small bowel dilatation. 3. Cholelithiasis. 4. Persistent dilatation of the main pancreatic duct measuring 6 mm. Please correlate with recent endoscopic ultrasound results to exclude the underlying possibility of an occult pancreatic lesion. 5. Additional findings as described above. ACT 112: Negative or not required by law. Electronically signed by: Nemesio Tatum M.D. 10/19/2023 3:31 PM Discharge Plan Visit Data Chief Complaint: Abdominal Pain Stated Complaint: ABDOMINAL PAIN ED Provider: Carlos Thao Discharge Problem: SBO (small bowel obstruction) Patient Disposition: Being Evaluated by Hospitalist [facility] Pres[facility] Prescriptions: No Action cholecalciferol (vitamin D3) 50 mcg (2,000 unit) tablet 50 mcg PO DAILY polyethylene glycol 3350 [Miralax] 17 gram powder in packet 17 g PO BID multivitamin Tablet 1 tab PO QAM calcium carbonate [Calcium 600] 600 mg calcium (1,500 mg) tablet 600 mg PO QAM ipratropium bromide 21 mcg (0.03 %) spray,non-aerosol 2 spray intranasal BID PRN (Reason: Allergy Symptoms) Rx Instructions: administer into each nostril Referrals Referrals: Nicky Roman MD [Primary Care Provider] -
[2023-10-19] MEDS: SODIUM CHLORIDE 0.9% 500 ML IV ONE (12:18)
[2023-10-19 12:33] LABS: Basophils # (auto) 0.01 K/uL (0.00-0.20); Basophils % (auto) 0.2 %; Eosinophils # (auto) 0.03 K/uL (0.00-0.50); Eosinophils % (auto) 0.5 %; Hematocrit (blood only) 43.6 % (37.0-47.0); Hemoglobin 14.4 g/dl (12.0-16.0); Immature Granulocytes # (auto) 0.03 K/uL (0.01-0.20); Immature Granulocytes % (auto) 0.5 %; Lymphocytes # (auto) 0.61 K/uL (1.20-3.40); Lymphocytes % (auto) 10.7 %; Mean Corpuscular Hemoglobin 29.4 pg (25.0-34.0); Mean Corpuscular Volume 89.2 fL (80.0-100.0); Mean Platelet Volume 10.4 fL (9.4-12.4); Monocytes # (auto) 0.36 K/uL (0.11-0.59); Monocytes % (auto) 6.3 %; Neutrophils # (auto) 4.67 K/uL (1.40-6.50); Neutrophils % (auto) 81.8 %; Platelet Count 230 K/uL (130-400); RDW Coefficient of Variation 13.1 % (11.5-14.5); RDW Standard Deviation 42.4 fL (36.4-46.3); Red Blood Count 4.89 M/uL (4.20-5.40); White Blood Count 5.71 K/ul (4.8-10.8)
[2023-10-19 12:37] LABS: Alanine Aminotransferase 13 U/L (7-52); Albumin Globulin Ratio 1.4 (0.9-2); Albumin Level 4.2 gm/dl (3.4-5.0); Alkaline Phosphatase 90 U/L (34-104); Anion Gap 7 (3-11); Aspartate Aminotransferase 17 U/L (13-39); BUN Creatinine Ratio 24.2 (10-20); Bilirubin,Total 0.7 mg/dl (0.2-1.0); Blood Urea Nitrogen 15 mg/dl (6-23); Calcium 9.1 mg/dl (8.6-10.3); Carbon Dioxide 29 mmol/L (21-32); Chloride 104 mmol/L (98-107); Est GFR (African American) 101.5 ml/min; Est GFR (Non-African American) 87.6 ml/min; Globulin 2.9 gm/dl (2.5-4.0); Glucose 122 mg/dl (70-99(Fasting)); Lipase 52 U/L (11-82); Sodium 140 mmol/L (136-145); Total Protein 7.1 gm/dl (6.0-8.3)
[2023-10-19] MEDS: MoRPHine SULFATE 2 MG/ML CARP IV STA (12:37)
[2023-10-19 12:41] LABS: Troponin I High Sensitivity 4.3 pg/ml (0-14)
[2023-10-19] MEDS: OPTIRAY 320 100ml IV ONE (14:03)
--- NOTE | 2023-10-19 15:33 | CT Scan Report ---
ABDOMEN AND PELVIS CT WITH IV CONTRAST CT DOSE: 835.63 mGy.cm HISTORY: Abd paibn, h/o SBO TECHNIQUE: Multiaxial CT images of the abdomen and pelvis were performed following the use of intrave nous contrast. A dose lowering technique was utilized adhering to the principles of ALARA. COMPARISON STUDY: Abdomen and pelvis CT 05/22/2023. FINDINGS: Mild dependent changes seen within the lung bases. No pneumoperitoneum. No pneumatosis. No acute fractures. The heart is borderline enlarged. There is a trace pericardial effusion. Postoperati ve changes again noted within the right breast. Tiny fat-containing umbilical hernia. Cholelithiasis. No gallbladder wall thickening. Normal caliber common bile duct. Persistent dilatation the main panc reatic duct measuring up to 6 mm. This is similar to the prior study. However, the pancreas enhances normally. The spleen, adrenal glands, and kidneys are unremarkable. The main portal vein is patent. M ild calcified plaque within the normal caliber abdominal aorta. No retroperitoneal or pelvic lymphade nopathy. The bladder, uterus, bilateral adnexa are unremarkable. Pelvic floor collapse is again noted . Multiple dilated fluid-filled loops of small bowel within the left mid abdomen with mild surroundin g fat stranding. This is consistent with a small bowel obstruction.. The exact transition point is di fficult to assess. There are scattered areas of mucosal hyperemia/thickening within the distal ileum. Overall, the distended loops of small bowel are improved compared to the May 22, 2023 examination . Focal area of severe narrowing within a mid small bowel loop within the left abdomen on image 154. However, the small bowel proximal to distal to this site are distended. This could represent one of t he transition points in the setting of a closed loop type obstruction. IMPRESSION: 1. . Multiple dilated fluid-filled loops of small bowel within the left mid abdomen with mild surroun ding fat stranding. This is consistent with a small bowel obstruction. Overall, the distended loops o f small bowel are improved compared to the May 22, 2023 examination. The exact transition point is difficult to assess. There is a focal area of severe narrowing within a mid small bowel loop within the left abdomen which could represent one of the transition points in the setting of a closed loop t ype obstruction. 2. There are scattered areas of mucosal hyperemia/thickening within the distal ileum. This could repr esent lymphoid hyperplasia or possibly a inflammatory or infectious ileitis. This may also account fo r the areas of small bowel dilatation. 3. Cholelithiasis. 4. Persistent dilatation of the main pancreatic duct measuring 6 mm. Please correlate with recent end oscopic ultrasound results to exclude the underlying possibility of an occult pancreatic lesion. 5. Additional findings as described above. ACT 112: Negative or not required by law. Electronically signed by: Nemesio Tatum M.D. 10/19/2023 3:31 PM
--- NOTE | 2023-10-19 16:38 | Surgery Consultation ---
Date of Consultation October 19, 2023 Assessment & Plan (1) SBO (small bowel obstruction): (2) Abnormal findings on imaging of biliary tract: Plan 77 y/o F presents with repeat SBO. She is currently non-toxic appearing and without abdominal pain. No leukocytosis. No dilation of the stomach on imaging, patient without nausea. No acute surgical intervention. Admit to medicine for conservative management When the timing becomes right, may consider SBFT, will order it when ready Keep NPO for now. If patient has any episode of nausea, insert NGT IVF hydration IV analgesics and antiemetics as needed May ambulate as tolerated, with assistance if unsteady or becomes lightheaded Am labs, replete electrolytes as needed Will see in the am History of Present Illness History of Present Illness 77 y/o F who presents for abdominal pain. She is found to have SBO on CT. She was here in May for the same issue and that was her second bowel obstruction with the one prior to that being 6 years ago. Has had an open appendectomy as a child. She states this time she started having pain at 0300 this am and tried to wait to give it time to go away but did not. States the pain was in the same location as it was during previous small bowel obstruction in May at the upper part of her mid abdomen above the umbilicus. She denies N/V, F/C. She had been having her normal bowel movements nothing unusual. She does have a h/o IBS and can get loose stools in the warmer weather or constipation. She does take Miralax on a daily basis to help with BMs. In the ED she was afebrile HTN, bradycardic. No leukocytosis. CT similar findings to previous showing overall, the distended loops of small bowel are improved compared to the May 22, 2023 examination. The exact transition point is difficult to assess. There is a focal area of severe narrowing within a mid small bowel loop within the left abdomen which could represent one of the transition points in the setting of a closed loop type obstruction. Ongoing pancreatic duct changes. This was noted at previous admission and evaluated by GI. No abnormalities noted on EGD/EUS at that time. She believes her last colonoscopy was 3 years ago and was without polyps. Denies FHX of colon cancer or IBD. Allergies Allergy/AdvReac Type Severity Reaction Status Date / Time Penicillins Allergy Unknown SKIN Verified 10/19/23 15:35 IRRITATION>"HARD A ROCK" 47 YEARS AGO cephalexin AdvReac Mild Diarrhea Verified 10/19/23 15:35 Home Medications Medication Instructions Recorded Confirmed Type calcium carbonate (Calcium 600) 600 mg PO QAM 03/31/21 10/19/23 History multivitamin 1 tab PO QAM 05/30/23 10/19/23 History polyethylene glycol 3350 17 gram 17 g PO BID 05/31/23 10/19/23 History oral powder packet (Miralax) cholecalciferol (vitamin D3) 50 50 mcg PO DAILY 09/06/23 10/19/23 History mcg (2,000 unit) tablet ipratropium bromide 21 mcg (0.03 2 spray intranasal BID PRN Allergy 10/19/23 10/19/23 History %) nasal spray Symptoms Patient History Medical History History of COVID-19 Small bowel obstruction Mild obstructive sleep apnea Anxiety C. difficile colitis Varicose veins of both lower extremities Prediabetes Osteoporosis Nontoxic multinodular goiter Dyslipidemia Breast cancer IBS (irritable bowel syndrome) Surgical History History of colonoscopy Hx of lumpectomy History of surgery Hx of tonsillectomy H/O: hemorrhoidectomy History of appendectomy Family History Aunt Breast cancer Brother Diabetes Lung cancer Mother Cardiac disorder Brother Diabetes Parkinsons disease Brother Diabetes Denies family history of Ovarian cancer Prostate cancer Myocardial infarction Colorectal cancer Social History (Updated 09/06/23 @ 12:13 by Barbara Walsh LPN) Smoking Status: Never smoker Second Hand Exposure: No; Do You Dip or Chew Tobacco: No; Hx Alcohol Use: No Hx Substance Use: No Preferred Language: Azerbaijani Communication Ability: Effective Visual Impairment: No Limitations Hearing Ability: Hard of Hearing 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 Beliefs That Will Affect Care: None marital status: marital status details: two children Current Living Situation: Spouse Current Living Situation Comment: lives with and daughter current occupational status: retired 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 Feels Safe at Home: Yes Childhood Exposure to Second-Hand Smoke: Yes Diet: regular caffeine: Yes Dental Care, Regularly: Yes Physical Activity Frequency: Daily Seatbelt Use: always Sunscreen Use: No Assistive Devices: Glasses Review of Systems Constitutional: no fever, no chills, no sweats and no body aches Respiratory: no cough, no chest congestion, no sputum production and no wheezing Cardiovascular: no chest pain, no dyspnea, no palpitations and no syncope Gastrointestinal: + abdominal pain (upper mid pain, 0/10 c urrently after morphine); no nausea and no vomiting Genitourinary: no dysuria, no difficulty urinating, no urinary frequency and no urinary urgency Physical Exam Constitutional: average body habitus; not ill appearing, not in distress and not diaphoretic Respiratory: normal respiratory effort; no respiratory distress, no labored breathing and does not use accessory muscles Cardiovascular: Rate/Rhythm: + bradycardic Extremities: no calf tenderness and no edema Extremities are well perfused Gastrointestinal (Abdomen): Inspection/Auscultation: abdomen not distended Percussion/Palpation: abdomen soft; abdomen nontender, no guarding and abdomen not rigid Results & Data Vital Signs (Past 12 Hours) Vital Signs Temp Pulse Pulse Resp BP BP Pulse Ox 10/19/23 15:06 42 L 18 98 10/19/23 15:06 48 L 18 163/76 H 97 10/19/23 13:06 44 L 10/19/23 11:49 36.7 C 46 L 18 178/66 H 99 O2 Del Method 10/19/23 15:06 Room Air 10/19/23 15:06 Room Air 10/19/23 13:06 10/19/23 11:49 Room Air Results Complete Blood Count Results: RBC 4.89 M/uL (4.20-5.40) 10/19/23 WBC 5.71 K/ul (4.8-10.8) 10/19/23 Hgb 14.4 g/dl (12.0-16.0) 10/19/23 Hct 43.6 % (37.0-47.0) 10/19/23 Plt Count 230 K/uL (130-400) 10/19/23 PG Care Time/CCT Total # of Minutes Spent Total Time Spent with Patient: Total time spent is greater than 50% in coordination of care (as documented) at patient's floor/unit and/or counseling patient: [place] [address] INT INP/OBS CARE 40MIN Patient Type New History Detailed Exam Detailed Diagnoses SBO (small bowel obstruction) K56.609 Abnormal findings on imaging of biliary tract R93.2
[2023-10-19] MEDS ORDERED: MoRPHine SULFATE 2 MG/ML CARP IV PRN (17:35)
--- NOTE | 2023-10-19 17:35 | History & Physical Report ---
Date of Service October 19, 2023 Assessment & Plan (1) SBO (small bowel obstruction): Plan: -Admit to med/surge -Currently stable, non-toxic appearing, and with symptoms currently controlled -Developed acute onset central abdominal pain overnight -Had one BM this am, pain was exacerbated after -Same location and pain as her previous SBO's -SBO noted on CT of the abd/pelvis -General surgery is following, recommends conservative measures for now -Patient is without nausea/vomiting, will hold off on NG tube for now -Pain control with tylenol and morphine -PRN zofran for nausea -BL SCD's for DVT PPX -Will start maintenance LR while NPO x 2 bags -Strict NPO until general surgery decides to advance diet -AM CBC, CMP, mag, PT/INR (2) Mild obstructive sleep apnea: Plan: -Patient does not use HS CPAP -Will order prn O2 in case she desaturates overnight -PRN narcan for oversedation/respiratory depression Plan The patient was discussed with Dr. Cummins at the time of the admission History of Present Illness Chief Complaint: Abdominal pain Primary Care Provider: Nicky Roman MD Danna is a 77-year-old female with past medical history of recurrent small bowel obstructions, idiopathic polyneuropathy, mild SAUD, insomnia, diabetes mellitus type 2, vitamin D deficiency, nontoxic multinodular goiter, dyslipidemia and IBS who presented to the [facility] ED on 10/19/23 due to recurrent abdominal pain consistent with her previous SBO's. Initially noted to be hypertensive at 178/66 and bradycardic with HR in the 40's (not new for her), but was otherwise stable. Labs including CBC, CMP, lactate, and high sen trop were unremarkable. CT of the abd/pelvis w/IV con was read as "1. . Multiple dilated fluid-filled loops of small bowel within the left mid abdomen with mild surrounding fat stranding. This is consistent with a small bowel obstruction. Overall, the distended loops of small bowel are improved compared to the May 22, 2023 examination. The exact transition point is difficult to assess. There is a focal area of severe narrowing within a mid small bowel loop within the left abdomen which could represent one of the transition points in the setting of a closed loop type obstruction. 2. There are scattered areas of mucosal hyperemia/thickening within the distal ileum. This could represent lymphoid hyperplasia or possibly a inflammatory or infectious ileitis. This may also acco unt for the areas of small bowel dilatation. 3. Cholelithiasis. 4. Persistent dilatation of the main pancreatic duct measuring 6 mm. Please correlate with recent endoscopic ultrasound results to exclude the underlying possibility of an occult pancreatic lesion. 5. Additional findings as described above.". The patient was evaluated by General Surgery who recommended medicine admission with conservative management for now, they will continue to follow. Prior to admission the patient was given 500 mL nss, 4 mg IV zofran, and 2mg IV morphine. The patient was sitting in bed in no acute distress at the time of the exam. States that she started to develop central abdominal pain overnight. This is the same location and pain she has had her previous SBO's in as well. Pain progressed overnight leading to ED visit. Denies nausea or vomiting. Had a small BM this am prior to symptoms progressing. She is currently pain free after the dose of morphine in the ED. Denies recent fever, chills, chest pain, SOB, dysuria, hematuria, melena, bloody BM's, LE swelling, and recent trauma. She is a full code and her is her POA. Please refer to Dr. Cummins's attestation for any changes to the treatment plan Allergies Allergy/AdvReac Type Severity Reaction Status Date / Time Penicillins Allergy Unknown SKIN Verified 10/19/23 15:35 IRRITATION>"HARD A ROCK" 47 YEARS AGO cephalexin AdvReac Mild Diarrhea Verified 10/19/23 15:35 Home Medications Medication Instructions Recorded Confirmed Type calcium carbonate (Calcium 600) 600 mg PO QAM 03/31/21 10/19/23 History multivitamin 1 tab PO QAM 05/30/23 10/19/23 History polyethylene glycol 3350 17 gram 17 g PO BID 05/31/23 10/19/23 History oral powder packet (Miralax) cholecalciferol (vitamin D3) 50 50 mcg PO DAILY 09/06/23 10/19/23 History mcg (2,000 unit) tablet ipratropium bromide 21 mcg (0.03 2 spray intranasal BID PRN Allergy 10/19/23 10/19/23 History %) nasal spray Symptoms Past Med/Surg History Problem List (Updated 10/19/23 @ 15:52 by Carlos Thao M.D.) SBO (small bowel obstruction) (Acute) Change in bowel habits Abnormal findings on imaging of biliary tract Idiopathic polyneuropathy Presbylarynges (Chronic) Insomnia Insufficient sleep syndrome Prediabetes (Chronic) Mild obstructive sleep apnea no device History of colon polyps Anxiety (Chronic) Varicose veins of both lower extremities (Chronic) Vitamin D deficiency (Chronic) Osteoporosis (Chronic) Treated with Reclast 2011, 2017, 2018 Nontoxic multinodular goiter (Chronic) Dyslipidemia (Chronic) IBS (irritable bowel syndrome) (Chronic) Medical History History of COVID-19 Small bowel obstruction Mild obstructive sleep apnea Anxiety C. difficile colitis Varicose veins of both lower extremities Prediabetes Osteoporosis Nontoxic multinodular goiter Dyslipidemia Breast cancer IBS (irritable bowel syndrome) Surgical History History of colonoscopy Hx of lumpectomy History of surgery Hx of tonsillectomy H/O: hemorrhoidectomy History of appendectomy Family History Aunt Breast cancer Brother Diabetes Lung cancer Mother Cardiac disorder Brother Diabetes Parkinsons disease Brother Diabetes Denies family history of Ovarian cancer Prostate cancer Myocardial infarction Colorectal cancer Social History (Updated 09/06/23 @ 12:13 by Barbara Walsh LPN) Smoking Status: Never smoker Second Hand Exposure: No; Do You Dip or Chew Tobacco: No; Hx Alcohol Use: No Hx Substance Use: No Preferred Language: Slovenian Communication Ability: Effective Visual Impairment: No Limitations Hearing Ability: Hard of Hearing Computer Assistant Required: No Beliefs That Will Affect Care: None marital status: marital status details: two children Current Living Situation: Spouse Current Living Situation Comment: lives with and daughter current occupational status: 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 Feels Safe at Home: Yes Childhood Exposure to Second-Hand Smoke: Yes Diet: regular caffeine: Yes Dental Care, Regularly: Yes Physical Activity Frequency: Daily Seatbelt Use: always Sunscreen Use: No Assistive Devices: Glasses Physical Exam Physical Exam: Physical Exam: General: In no acute distress, stated age, well-nourished, good hygiene HEENT: Normocephalic, atraumatic, no scleral icterus, pupils around round, symmetrical, and reactive to light, moist mucus membranes, trachea midline, no thyromegaly Chest/Pulm: No respiratory distress, symmetrical chest expansion, clear breath sounds throughout Cardiac: bradycardic rate, regular rhythm, no murmurs noted Abdomen: Negative for ascites and bruising, hyperactive bowel sounds, soft, non-tender to palpation throughout Musculoskeletal: Symmetrical and without signs of acute trauma, upper and lower extremities with full ROM, no atrophy, spasticity, or flaccidity Extremities: Radial, dorsalis pedis, and posterior tibial pulses are intact and symmetrical, no edema noted in the BL LE's Skin: Warm, dry, no rashes , lesions, or scars noted Neuro: Alert and oriented to person, place, month, year, and president, no focal defects,no tremors noted Psych: No acute distress, calm and cooperative during the exam Results & Data Results & Data Vital Signs (Past 12 Hours) Vital Signs Temp Pulse Pulse Resp BP BP Pulse Ox 10/19/23 15:06 42 L 18 98 10/19/23 15:06 48 L 18 163/76 H 97 10/19/23 13:06 44 L 10/19/23 11:49 36.7 C 46 L 18 178/66 H 99 O2 Del Method 10/19/23 15:06 Room Air 10/19/23 15:06 Room Air 10/19/23 13:06 10/19/23 11:49 Room Air Laboratory Results Abnormal lab results 10/19/23 Range/Units 12:06 Lymph # (Auto) 0.61 L (1.20-3.40) K/uL BUN/Creatinine Ratio 24.2 H (10-20) Glucose 122 H (70-99(Fasting)) mg/dl Diagnostic Findings Abdomen/Pelvis CT 10/19/23 11:[address] WITH IV CONTRAST CT DOSE: 835.63 mGy.cm HISTORY: Abd paibn, h/o SBO TECHNIQUE: Multiaxial CT images of the abdomen and pelvis were performed following the use of intravenous contrast. A dose lowering technique was utilized adhering to the principles of ALARA. COMPARISON STUDY: Abdomen and pelvis CT 05/22/2023. FINDINGS: Mild dependent changes seen within the lung bases. No pneumoperitoneum. No pneumatosis. No acute fractures. The heart is borderline enlarged. There is a trace pericardial effusion. Postoperative changes again noted within the right breast. Tiny fat-containing umbilical hernia. Cholelithiasis. No gallbladder wall thickening. Normal caliber common bile duct. Persistent dilatation the main pancreatic duct measuring up to 6 mm. This is similar to the prior study. However, the pancreas enhances normally. The spleen, adrenal glands, and kidneys are unremarkable. The main portal vein is patent. Mild calcified plaque within the normal caliber abdominal aorta. No retroperitoneal or pelvic lymphadenopathy. The bladder, uterus, bilateral adnexa are unremarkable. Pelvic floor collapse is again noted. Multiple dilated fluid- filled loops of small bowel within the left mid abdomen with mild surrounding fat stranding. This is consistent with a small bowel obstruction.. The exact transition point is difficult to assess. There are scattered areas of mucosal hyperemia/thickening within the distal ileum. Overall, the distended loops of small bowel are improved compared to the May 22, 2023 examination. Focal area of severe narrowing within a mid small bowel loop within the left abdomen on image 154. However, the small bowel proximal to distal to this site are distended. This could represent one of the transition points in the setting of a closed loop type obstruction. IMPRESSION: 1. . Multiple dilated fluid-filled loops of small bowel within the left mid abdomen with mild surrounding fat stranding. This is consistent with a small bowel obstruction. Overall, the distended loops of small bowel are improved compared to the May 22, 2023 examination. The exact transition point is difficult to assess. There is a focal area of severe narrowing within a mid small bowel loop within the left abdomen which could represent one of the transition points in the setting of a closed loop type obstruction. 2. There are scattered areas of mucosal hyperemia/thickening within the distal ileum. This could represent lymphoid hyperplasia or possibly a inflammatory or infectious ileitis. This may also account for the areas of small bowel dilatation. 3. Cholelithiasis. 4. Persistent dilatation of the main pancreatic duct measuring 6 mm. Please correlate with recent endoscopic ultrasound results to exclude the underlying possibility of an occult pancreatic lesion. 5. Additional findings as described above. ACT 112: Negative or not required by law. Electronically signed by: Nemesio Tatum M.D. 10/19/2023 3:31 PM ECG Additional Comments: Junctional bradycardia Left axis deviation Inferior infarct , age undetermined Anterolateral infarct (cited on or before 30-MAY-2017) Abnormal ECG When compared with ECG of 28-JUN-2023 08:44, Junctional rhythm has replaced Sinus rhythm Inferior infarct is now Present Questionable change in initial forces of Lateral leads Code Status & VTE Plan Code Status Full code VTE Prophylaxis Plan VTE Prophylaxis will be ordered: Yes Supervising Physician Co-Signing Physician Notes Agree with assessment and plan of PA Patient was seen and examined, appears to be doing better, abdominal pain is better, she has bowel sounds, she was evaluated by surgery for small bowel obstruction, recurrent. No NG tube, ambulation, pain control Hypertension , bradycardia, hydralazine as needed PG Care Time/CCT Total # of Minutes Spent Total Time Spent with Patient: Total time spent is greater than 50% in coordination of care (as documented) at patient's floor/unit and/or counseling patient: Coding [place] [address] INT INP/OBS CARE 2/55MIN Patient Type Established Medical Decision Making Moderate Complexity Diagnoses SBO (small bowel obstruction) K56.609 Mild obstructive sleep apnea G47.33
[2023-10-19] MEDS ORDERED: ONDANSETRON INJ 2 MG/ML 2 ML VIAL IV PRN (17:36)
[2023-10-19 17:55] LABS: Appearance Urine Clear (Clear); Bacteria Urine Automated None Seen (None Seen); Bilirubin Urine Negative (Negative); Blood Urine Negative (Negative); Cast Urine Automated 0-2 /lpf (0-2); Color Urine Yellow; Epithelial Cell Urine Auto 0-2 /hpf (0-2); Glucose Urine UA Negative (Negative); Ketones Urine Negative (Negative); Leukocyte Esterase Urine Trace (Negative); Nitrite Urine Negative (Negative); Protein Urine Negative (Negative); RBC Urine Automated 0-2 /hpf (0-2); Specific Gravity Urine > 1.045 (1.000-1.030); Urobilinogen Urine Negative (Negative); WBC Urine Automated 0-5 /hpf (0-5); pH Urine 7.5 (4.5-7.5)
[2023-10-19] MEDS ORDERED: NALOXONE HCL 0.4 MG/1 ML VIAL/CARP IV PRN (17:55)
[2023-10-19] MEDS: LACTATED RINGER'S 1,000 ML IV SCH (18:02)
[2023-10-19] MEDS ORDERED: hydrALAZINE HCL 20 MG/ML VIAL IV PRN (18:59)
[2023-10-19] MEDS ORDERED: IPRATROPIUM BROMIDE NASAL SPRAY 0.06% 15ML NAE PRN (19:04)
[2023-10-20] MEDS: ACETAMINOPHEN 1,000 MG/100 ML VIAL IV PRN (01:37)
[2023-10-20 06:19] LABS: Basophils # (auto) 0.02 K/uL (0.00-0.20); Basophils % (auto) 0.5 %; Eosinophils # (auto) 0.04 K/uL (0.00-0.50); Eosinophils % (auto) 1.1 %; Hemoglobin 11.7 g/dl (12.0-16.0); Immature Granulocytes # (auto) 0.02 K/uL (0.01-0.20); Immature Granulocytes % (auto) 0.5 %; Lymphocytes # (auto) 0.72 K/uL (1.20-3.40); Lymphocytes % (auto) 19.5 %; Mean Corpuscular Hemoglobin 29.4 pg (25.0-34.0); Mean Corpuscular Hgb Conc 32.5 g/dL (32.0-36.0); Mean Corpuscular Volume 90.5 fL (80.0-100.0); Mean Platelet Volume 10.9 fL (9.4-12.4); Monocytes # (auto) 0.44 K/uL (0.11-0.59); Monocytes % (auto) 11.9 %; Neutrophils # (auto) 2.45 K/uL (1.40-6.50); Neutrophils % (auto) 66.5 %; Platelet Count 179 K/uL (130-400); RDW Coefficient of Variation 13.1 % (11.5-14.5); RDW Standard Deviation 43.2 fL (36.4-46.3); Red Blood Count 3.98 M/uL (4.20-5.40); White Blood Count 3.69 K/ul (4.8-10.8)
[2023-10-20 06:41] LABS: Prothrombin Time 11.1 Seconds (9.0-12.0)
[2023-10-20 06:58] LABS: Albumin Globulin Ratio 1.4 (0.9-2); Albumin Level 2.9 gm/dl (3.4-5.0); BUN Creatinine Ratio 18.3 (10-20); Bilirubin,Total 0.6 mg/dl (0.2-1.0); Calcium 7.8 mg/dl (8.6-10.3); Creatinine Clr Calc Pharmacy 64.2 ml/min; Est GFR (African American) 102.6 ml/min; Est GFR (Non-African American) 88.5 ml/min; Globulin 2.1 gm/dl (2.5-4.0); Magnesium 1.9 mg/dl (1.7-2.4); Potassium 3.8 mmol/L (3.5-5.1)
--- NOTE | 2023-10-20 08:51 | Hospitalist Progress Note ---
Date of Service October 20, 2023 Assessment & Plan (1) SBO (small bowel obstruction): Plan: -Admit to med/surge -Currently stable, non-toxic appearing, and with symptoms currently controlled -Developed acute onset central abdominal pain overnight -Had one BM this am, pain was exacerbated after -Same location and pain as her previous SBO's -SBO noted on CT of the abd/pelvis -General surgery is following, recommends conservative measures for now -Patient is without nausea/vomiting, will hold off on NG tube for now -Pain control with tylenol and morphine -PRN zofran for nausea -BL SCD's for DVT PPX -Will start maintenance LR while NPO x 2 bags -Strict NPO until general surgery decides to advance diet -AM CBC, CMP, mag, PT/INR / CTAP on admission: 1. . Multiple dilated fluid-filled loops of small bowel within the left mid abdomen with mild surrounding fat stranding. This is consistent with a small bowel obstruction. Overall, the distended loops of small bowel are improved compared to the May 22, 2023 examination. The exact transition point is difficult to assess. There is a focal area of severe narrowing within a mid small bowel loop within the left abdomen which could represent one of the transition points in the setting of a closed loop type obstruction. 2. There are scattered areas of mucosal hyperemia/thickening within the distal ileum. This could represent lymphoid hyperplasia or possibly a inflammatory or infectious ileitis. This may also account for the areas of small bowel dilatation. 3. Cholelithiasis. 4. Persistent dilatation of the main pancreatic duct measuring 6 mm. Please correlate with recent endoscopic ultrasound results to exclude the underlying possibility of an occult pancreatic lesion. 5. Additional findings as described above. IVF, bowel rest, pain control/antiemetics General surgery consulted and following - SBFT to be ordered by them when timing is right +BM small overnight into this morning, IVF decreased to 75cc/hr for now DVT proph: SCDs, has been ambulating Feeling well, ambulating the halls. Full liquid diet ordered by primary and ok for dc from their perspective today. Patient aware of low fiber/to continue her usual miralax daily. General surgery to arrange for SBFT as outpatient. Will plan to monitor advancement on full liquids but patient would like to go today and to alert nursing after lunch if no issues and can dc with outpatient follow up for SBFT (2) Mild obstructive sleep apnea: Plan: -Patient does not use HS CPAP -Will order prn O2 in case she desaturates overnight -PRN narcan for oversedation/respiratory depression Plan The patient was discussed with Dr. Cummins at the time of the admission Admission and Anticipated Discharge Date Admission Date: October 19, 2023 Results & Data Results & Data Vital Signs (Past 12 Hours) Vital Signs Temp Pulse Pulse Resp BP Pulse Ox O2 Del Method 10/20/23 07:43 36.4 C L 46 L 16 159/71 H 95 Room Air 10/19/23 21:15 36.7 C 49 L 16 122/62 95 Room Air PG Care Time/CCT Total # of Minutes Spent Total Time Spent with Patient: Total time spent is greater than 50% in coordination of care (as documented) at patient's floor/unit and/or counseling patient: Coding Diagnoses SBO (small bowel obstruction) K56.609 Mild obstructive sleep apnea G47.33
--- NOTE | 2023-10-20 11:04 | XRay Report ---
XR KUB/Abdomen 1 view CLINICAL HISTORY: follow up sbo TECHNIQUE: 1 view of the abdomen was obtained. Comparison: Comparison is made to CT abdomen pelvis 10/19/2023 FINDINGS: Lung bases are unremarkable. The osseous structures are grossly unremarkable. No gas-distended loops of small bowel are seen. Small stool burden is seen. IMPRESSION: No gas-distended loops of small bowel are seen, however this may be due to fluid-filled loops as seen in the prior CT. If clinical concern remains, follow-up CT can be performed. ACT 112: Negative or not required by law. Electronically signed by: Saulo Veloz M.D. 10/20/2023 11:02 AM
--- NOTE | 2023-10-20 11:18 | Discharge Summary ---
Date of Service October 20, 2023 Admission HPI Per Admitting Provider Danna is a 77-year-old female with past medical history of recurrent small bowel obstructions, idiopathic polyneuropathy, mild SAUD, insomnia, diabetes mellitus type 2, vitamin D deficiency, nontoxic multinodular goiter, d yslipidemia and IBS who presented to the [facility] ED on 10/19/23 due to recurrent abdominal pain consistent with her previous SBO's. Initially noted to be hypertensive at 178/66 and bradycardic with HR in the 40's (not new for her), but was otherwise stable. Labs including CBC, CMP, lactate, and high sen trop were unremarkable. CT of the abd/pelvis w/IV con was read as "1. . Multiple dilated fluid-filled loops of small bowel within the left mid abdomen with mild surrounding fat stranding. This is consistent with a small bowel obstruction. Overall, the distended loops of small bowel are improved compared to the May 22, 2023 examination. The exact transition point is difficult to assess. There is a focal area of severe narrowing within a mid small bowel loop within the left abdomen which could represent one of the transition points in the setting of a closed loop type obstruction. 2. There are scattered areas of mucosal hyperemia/thickening within the distal ileum. This could represent lymphoid hyperplasia or possibly a inflammatory or infectious ileitis. This may also account for the areas of small bowel dilatation. 3. Cholelithiasis. 4. Persistent dilatation of the main pancreatic duct measuring 6 mm. Please correlate with recent endoscopic ultrasound results to exclude the underlying possibility of an occult pancreatic lesion. 5. Additional findings as described above.". The patient was evaluated by General Surgery who recommended medicine admission with conservative management for now, they will continue to follow. Prior to admission the patient was given 500 mL nss, 4 mg IV zofran, and 2mg IV morphine. The patient was sitting in bed in no acute distress at the time of the exam. States that she started to develop central abdominal pain overnight. This is the same location and pain she has had her previous SBO's in as well. Pain progressed overnight leading to ED visit. Denies nausea or vomiting. Had a small BM this am prior to symptoms progressing. She is currently pain free after the dose of morphine in the ED. Denies recent fever, chills, chest pain, SOB, dysuria, hematuria, melena, bloody BM's, LE swelling, and recent trauma. She is a full code and her is her POA. Please refer to Dr. Cummins's attestation for any changes to the treatment plan Admission Exam Per Admitting Provider Physical Exam: General: In no acute distress, stated age, well-nourished, good hygiene HEENT: Normocephalic, atraumatic, no scleral icterus, pupils around round, symmetrical, and reactive to light, moist mucus membranes, trachea midline, no thyromegaly Chest/Pulm: No respiratory distress, symmetrical chest expansion, clear breath sounds throughout Cardiac: bradycardic rate, regular rhythm, no murmurs noted Abdomen: Negative for ascites and bruising, hyperactive bowel sounds, soft, non- tender to palpation throughout Musculoskeletal: Symmetrical and without signs of acute trauma, upper and lower extremities with full ROM, no atrophy, spasticity, or flaccidity Extremities: Radial, dorsalis pedis, and posterior tibial pulses are intact and symmetrical, no edema noted in the BL LE's Skin: Warm, dry, no rashes , lesions, or scars noted Neuro: Alert and oriented to person, place, month, year, and president, no focal defects,no tremors noted Psych: No acute distress, calm and cooperative during the exam Principal Diagnosis SBO Discharge Exam General: WD/WN female sitting up in bed, NAD, ready to eat/go home today, had been witnessed ambulating the [place] all morning without issue Head atraumatic, normocephalic, mmm, trachea midline Resp: even/unlabored, no w/c/r, on room air CV: RRR, slightl bradycardic to 50-60s, no significant m/r/g, no pitting edema GI: +BS, soft, nontender, slight distension but no guarding/rebound : no martins MSK/Neuro: nonfocal, no slurred speech/facial droop Psych: AOx3, cooperative and pleasant with exam Discharge Data Allergies Allergy/AdvReac Type Severity Reaction Status Date / Time Penicillins Allergy Unknown SKIN Verified 10/19/23 15:35 IRRITATION>"H[place] [employer] [place]" 47 YEARS AGO cephalexin AdvReac Mild Diarrhea Verified 10/19/23 15:35 Consultations 10/19/23 16:07 Consult General Surgery Routine 10/19/23 16:34 ED Decision to Admit Stat Ordered Studies Abdomen/Pelvis CT 10/19/23 11:[address] WITH IV CONTRAST CT DOSE: 835.63 mGy.cm HISTORY: Abd paibn, h/o SBO TECHNIQUE: Multiaxial CT images of the abdomen and pelvis were performed following the use of intravenous contrast. A dose lowering technique was utilized adhering to the principles of ALARA. COMPARISON STUDY: Abdomen and pelvis CT 05/22/2023. FINDINGS: Mild dependent changes seen within the lung bases. No pneumoperitoneum. No pneumatosis. No acute fractures. The heart is borderline enlarged. There is a trace pericardial effusion. Postoperative changes again noted within the right breast. Tiny fat-containing umbilical hernia. Cholelithiasis. No gallbladder wall thickening. Normal caliber common bile duct. Persistent dilatation the main pancreatic duct measuring up to 6 mm. This is similar to the prior study. However, the pancreas enhances normally. The spleen, adrenal glands, and kidneys are unremarkable. The main portal vein is patent. Mild calcified plaque within the normal caliber abdominal aorta. No retroperitoneal or pelvic lymphadenopathy. The bladder, uterus, bilateral adnexa are unremarkable. Pelvic floor collapse is again noted. Multiple dilated fluid- filled loops of small bowel within the left mid abdomen with mild surrounding fat stranding. This is consistent with a small bowel obstruction.. The exact transition point is difficult to assess. There are scattered areas of mucosal hyperemia/thickening within the distal ileum. Overall, the distended loops of small bowel are improved compared to the May 22, 2023 examination. Focal area of severe narrowing within a mid small bowel loop within the left abdomen on image 154. However, the small bowel proximal to distal to this site are distended. This could represent one of the transition points in the setting of a closed loop type obstruction. IMPRESSION: 1. . Multiple dilated fluid-filled loops of small bowel within the left mid abdomen with mild surrounding fat stranding. This is consistent with a small bowel obstruction. Overall, the distended loops of small bowel are improved compared to the May 22, 2023 examination. The exact transition point is difficult to assess. There is a focal area of severe narrowing within a mid small bowel loop within the left abdomen which could represent one of the transition points in the setting of a closed loop type obstruction. 2. There are scattered areas of mucosal hyperemia/thickening within the distal ileum. This could represent lymphoid hyperplasia or possibly a inflammatory or infectious ileitis. This may also account for the areas of small bowel dilatation. 3. Cholelithiasis. 4. Persistent dilatation of the main pancreatic duct measuring 6 mm. Please correlate with recent endoscopic ultrasound results to exclude the underlying possibility of an occult pancreatic lesion. 5. Additional findings as described above. ACT 112: Negative or not required by law. Electronically signed by: Nemesio Tatum M.D. 10/19/2023 3:31 PM KUB X-Ray 10/20/23 08:48 XR KUB/Abdomen 1 view CLINICAL HISTORY: follow up sbo TECHNIQUE: 1 view of the abdomen was obtained. Comparison: Comparison is made to CT abdomen pelvis 10/19/2023 FINDINGS: Lung bases are unremarkable. The osseous structures are grossly unremarkable. No gas-distended loops of small bowel are seen. Small stool burden is seen. IMPRESSION: No gas-distended loops of small bowel are seen, however this may be due to fluid-filled loops as seen in the prior CT. If clinical concern remains, follow- up CT can be performed. ACT 112: Negative or not required by law. Electronically signed by: Saulo Veloz M.D. 10/20/2023 11:02 AM Hospital Course (1) SBO (small bowel obstruction): Admitted w/ recurrance of SBO. surgery as a child and had been very infrequent having issues with such and reports last one prior to several months ago was at least 5-6 years ago Similar location and pain reported as with her prior SBO and noted on CTAP and surgery consulted and made NPO/bowel rest and pain control/antiemetics with IVF support and electrolyte replacement as needed CTAP on admission: 1. . Multiple dilated fluid-filled loops of small bowel within the left mid abdomen with mild surrounding fat stranding. This is consistent with a small bowel obstruction. Overall, the distended loops of small bowel are improved compared to the May 22, 2023 examination. The exact transition point is difficult to assess. There is a focal area of severe narrowing within a mid small bowel loop within the left abdomen which could represent one of the transition points in the setting of a closed loop type obstruction. 2. There are scattered areas of mucosal hyperemia/thickening within the distal ileum. This could represent lymphoid hyperplasia or possibly a inflammatory or infectious ileitis. This may also account for the areas of small bowel dilatation. 3. Cholelithiasis. 4. Persistent dilatation of the main pancreatic duct measuring 6 mm. Please correlate with recent endoscopic ultrasound results to exclude the underlying possibility of an occult pancreatic lesion. 5. Additional findings as described above. IVF, bowel rest, pain control/antiemetics General surgery consulted and following while inpatient DVT proph: SCDs while inpatient and ambulating halls without issue UNEVENTFUL COURSE WHILE INPATIENT +BM small overnight into this morning /. IVF decreased to 75cc/hr and then discontinued Feeling well, ambulating the halls. Full liquid diet ordered by primary and ok for dc from their perspective today. Monitoring advancement of diet and if no issues can plan for dc this afternoon and instructed to continue low fiber diet, continue home usual miralax daily. SBFT outpatient as discussed w/ surgery Instructed to return if any worsening symptoms/fever/etc Of note, does have hx gallstones on abdominal imaging and should discuss with general surgery if having any right upper abdominal pain along with nausea/vomiting this can potentially become an issue. Suspect benefit from repeat colonoscopy as well given possible ileitis on imaging that is concerning for underlying inflammatory bowel disease however no blood from stool reported and can be further evaluated with endoscopy. Follow up with GI also recommended/consideration for repeat c-scope outpatient (distal ileitis on imaging noted) (2) Mild obstructive sleep apnea: Does not use CPAP, f/u outpatient PCP Plan discharging on low fiber diet and to have SBFT arranged by general surgery as outpatient for further evaluation Total Time Total Time Spent Total Time Spent (In Minutes): 40 Discharge Plan Discharge Items Patient Disposition: Home - Self-Care Reason For Visit: SBO Discharge Diagnosis: Small bowel obstruction Goals: You have been hospitalized for an acute medical problem. During your stay at [facility], we have made an effort to correct the problem that brought you to the hospital while keeping you as comfortable as possible. Medications were used to bring your condition under control and your discharge instructions will include directions for any medications you should take after leaving the hospital. Please make sure you see your Primary Care Provider as part of your follow up plan. Activity: As commented below Non-emergency contact: Primary Care Provider and Surgeon Call non-emergency contact if: you have any medication questions, your symptoms worsen, your pain is not controlled, your pain is worsening and you have a fever Follow-up/Referrals: Nicky Roman MD [Primary Care Provider] - Rodriguez Valiente DO [Physician] - Diet: Low Fiber Diet Comment: low fiber diet and advance as tolerated Addtl Attending Provider Instructions: You have been hospitalized for abdominal pain and found to have small bowel obstruction as similarly having with this pain. General surgery was consulted and you had bowel rest and supportive care with IVF and ambulation and bowels have moved and feeling better and surgery feels you are stable for discharge and can continue your usual miralax daily and they will be arranging for small bowel study as an outpatient for further evaluation given this has come back sooner than in the past. You should also follow up with primary care and/or GI about findings of pancreatic duct dilation on imaging as well as has been there and the past and evaluated but should be discussed. You do have gallstones on abdominal imaging and should discuss with general surgery if having any right upper abdominal pain along with nausea/vomiting this can potentially become an issue. You may benefit from repeat colonoscopy as well given possible ileitis on imaging that is concerning for underlying inflammatory bowel disease however no blood from stool reported and can be further evaluated with endoscopy. Please continue low fiber diet as tolerated and return to ER with any fever/chills, worsening abdominal pain, nausea/vomiting, or for any other symptoms concerning for you. It has been a pleasure being a part of the medical team providing for you while you have been in the hospital. Take care! Pending Studies at Discharge: No Stand-Alone Forms: My [facility], Smoking Cessation Medications and DC Order Prescriptions: Continued cholecalciferol (vitamin D3) 50 mcg (2,000 unit) tablet 50 mcg PO DAILY polyethylene glycol 3350 [Miralax] 17 gram powder in packet 17 g PO BID multivitamin Tablet 1 tab PO QAM calcium carbonate [Calcium 600] 600 mg calcium (1,500 mg) tablet 600 mg PO QAM ipratropium bromide 21 mcg (0.03 %) spray,non-aerosol 2 spray intranasal BID PRN (Reason: Allergy Symptoms) Rx Instructions: administer into each nostril Discharge Orders: Discharge Order (Routine); Ordered 10/20/23 Ordered By: Delmy Whatley Admission Data Admit Date/Time: 10/19/23 17:35 Attending Provider: Dionicio Schuster Admit Provider: Ginger Cummins Primary Care Provider: Nicky Roman Other Providers: Rodriguez Valiente; Ginger Cummins Supervising Physician Co-Signing Physician Notes The patient was not seen by me. The chart was reviewed. Case discussed with HALEY Lopez. Agree with assessment and plan Coding Level of Care Code 99060 INP/OBS DISCH >30 MIN Diagnoses SBO (small bowel obstruction) K56.609 Mild obstructive sleep apnea G47.33
--- NOTE | 2023-10-20 12:20 | Surgery Progress Note ---
<Statement entered by Rodriguez Valiente, - 10/20/23 13:18> I have seen and examined this patient. I agree with this plan. Date of Service October 20, 2023 Assessment & Plan (1) SBO (small bowel obstruction): Plan: Danna has greatly improved with conservative measures. Can advance to full liquid diet for lunch and then discharge to home following lunch. Will attempt to order a SBFT as outpatient. She will follow-up with Dr. Teddy Cai as outpatient once SBFT has been completed. Diet recommendations reviewed with Danna. Return precautions reviewed as well. She is ok for discharge to home. Patient seen and examined with Dr. Valiente. Admission and Anticipated Discharge Date Admission Date: October 19, 2023 Subjective Danna is doing very well this morning. She denies abdominal pain. Reports that she does feel hungry. She feels that she would like to go home. Review of Systems Constitutional: no fever, no chills, no sweats and no body aches Respiratory: no cough, no chest congestion, no sputum production and no wheezing Cardiovascular: no chest pain, no dyspnea, no palpitations and no syncope Gastrointestinal: no abdominal pain, no nausea and no vomiting Genitourinary: no dysuria, no difficulty urinating, no urinary frequency and no urinary urgency Physical Exam Constitutional: average body habitus; not ill appearing, not in distress and not diaphoretic Respiratory: normal respiratory effort; no respiratory distress, no labored breathing and does not use accessory muscles Cardiovascular: Rate/Rhythm: + bradycardic Extremities: no calf tenderness and no edema Extremities are well perfused Gastrointestinal (Abdomen): Inspection/Auscultation: abdomen not distended Percussion/Palpation: abdomen soft; abdomen nontender, no guarding and abdomen not rigid Results & Data Vital Signs (Past 12 Hours) Vital Signs Temp Pulse Resp BP Pulse Ox O2 Del Method 10/20/23 07:43 36.4 C L 46 L 16 159/71 H 95 Room Air PG Care Time/CCT Total # of Minutes Spent Total Time Spent with Patient: Total time spent is greater than 50% in coordination of care (as documented) at patient's floor/unit and/or counseling patient: Coding Level of Care Code 53109 SUB INP/OBS CARE 2/35MIN Diagnoses SBO (small bowel obstruction) K56.609
--- NOTE | 2023-10-22 21:16 | Electrocardiogram Report ---
Test Reason : Blood Pressure : / mmHG Vent. Rate : 040 BPM Atrial Rate : 000 BPM P-R Int : 000 ms QRS Dur : 104 ms QT Int : 488 ms P-R-T Axes : 000 -56 065 degrees QTc Int : 397 ms Junctional bradycardia Left axis deviation Inferior infarct , age undetermined Anterior infarct (cited on or before 30-MAY-2017) Abnormal ECG When compared with ECG of 28-JUN-2023 08:44, Junctional rhythm has replaced Sinus rhythm Inferior infarct is now Present Confirmed by Abel Mccarty ([id number]) on 10/22/2023 9:16:09 PM Referred By: Confirmed By:Abel Mccarty
== END 2023-10-20 14:32 | disposition home or self-care (01) | DRG 390 ==
LOC: ED 11:36 → 3W 17:35 → SUATTDRO 17:35 → INTOOBSV 17:35 → 3W 18:23